=== PATIENT | male | born 1940 | race Caucasian/White ===

== ENCOUNTER 2016-11-08 14:59 | Inpatient (IN) | payer MEDICARE ==
[2016-11-08] MEDS ORDERED: NITROGLYCERIN OINT 1 INCH/GM PACKET TOPICAL STA (15:15)
[2016-11-08] MEDS ORDERED: ASPIRIN 81 MG CHEW PO STA (15:15)
[2016-11-08] MEDS ORDERED: IV VANCOMYCIN PER PHARMACY 1 EACH MISC MISCELLANE PRN (15:16)
[2016-11-08] MEDS ORDERED: FUROSEMIDE 10 MG/ML 4 ML VIAL IV STA (15:16)
--- NOTE | 2016-11-08 15:24 | ED ---
General Adult HPI - General Chief complaint: Extremity Injury, Lower Stated complaint: Cellulitis Time Seen by Provider: 11/08/16 15:04 Source: patient, EMS, RN notes reviewed Mode of arrival: EMS Limitations: no limitations - History of Present Illness Initial comments: 76-year-old male presents to the emergency department with a chief complaint of bilateral leg swelling and redness. Patient has had this the past few days. Patient also felt short of breath. Patient denies any pain at this time. Patient states besides the redness and legs he has no other complaints. Patient states that he is at a rehab for a recent hip fracture.Patient denies any recent fever, chills, shortness of breath, chest pain, back pain, abdominal pain, nausea vomiting, numbness or tingling, dysuria or hematuria, constipation or diarrhea, headaches or visual changes, or any other current symptoms. - Related Data Home Medications Medication Instructions Recorded Confirmed Acetaminophen Tab [Tylenol Tab] 650 mg PO Q4H PRN 11/08/16 11/08/16 Allopurinol [Zyloprim] 100 mg PO BID 11/08/16 11/08/16 Amino Acids/Protein Hydrolys 30 ml PO DAILY 11/08/16 11/08/16 [Pro-Stat Supplement] Atorvastatin [Lipitor] 80 mg PO HS 11/08/16 11/08/16 Bisacodyl 10 mg RECTAL DAILY PRN 11/08/16 11/08/16 Cephalexin [Keflex] 500 mg PO Q12HR 11/08/16 11/08/16 Cetirizine HCl 10 mg PO DAILY 11/08/16 11/08/16 Fluticasone/Vilanterol [Breo 1 puff INHALATION RT-DAILY 11/08/16 11/08/16 Ellipta 100-25 Mcg Inhaler] Ipratropium-Albuterol Nebulize 3 ml INHALATION RT-Q8H PRN 11/08/16 11/08/16 [Duoneb 0.5 mg-3 mg/3 ml Soln] Tim Packet 1 packet PO DAILY 11/08/16 11/08/16 Levothyroxine Sodium [Synthroid] 137 mcg PO HS 11/08/16 11/08/16 Melatonin 5 mg PO HS 11/08/16 11/08/16 Multivitamins, Thera [Multivitamin 1 tab PO DAILY 11/08/16 11/08/16 (formulary)] Omeprazole 20 mg PO HS 11/08/16 11/08/16 Sennosides/Docusate Sodium 1 tab PO BID 11/08/16 11/08/16 [[place]-Colace Tablet] Tamsulosin [Flomax] 0.4 mg PO HS 11/08/16 11/08/16 Tiotropium 18 Mcg/Puff [Spiriva] 1 cap INHALATION RT-DAILY 11/08/16 11/08/16 Vitamin B Complex 1 cap PO DAILY 11/08/16 11/08/16 Warfarin [Coumadin] 2.5 mg PO MOFR 11/08/16 11/08/16 Warfarin [Coumadin] 5 mg PO SUTUWETH 11/08/16 11/08/16 oxyCODONE HCL/ACETAMINOPHEN 1 tab PO Q4H PRN 11/08/16 11/08/16 [Percocet 5-325 mg] oxyCODONE-APAP 5-325MG [Percocet 2 tab PO Q6HR PRN 11/08/16 11/08/16 5-325 mg] Allergies Allergy/AdvReac Type Severity Reaction Status Date / Time No Known Allergies Allergy Verified 11/08/16 16:47 Review of Systems ROS Statement: Those systems with pertinent positive or pertinent negative responses have been documented in the HPI. ROS Other: All systems not noted in ROS Statement are negative. Past Medical History Past Medical History: Atrial Fibrillation, Coronary Artery Disease (CAD), Heart Failure, GERD/Reflux History of Any Multi-Drug Resistant Organisms: None Reported Past Surgical History: Cardiac Valve Replacement, Coronary Bypass/CABG Additional Past Surgical History / Comment(s): tyhyroidectomy Past Psychological History: No Psychological Hx Reported Smoking Status: Former smoker Past Alcohol Use History: Daily Past Drug Use History: None Reported General Exam - General Exam Comments Initial Comments: General: The patient is awake and alert, in no distress, and does not appear acutely ill. Eye: Pupils are equal, round. Ears, nose, mouth and throat: There are moist mucous membranes. Neck: The neck is supple, there is no tenderness. Cardiovascular: There is a regular rate and rhythm. No murmur, rub or gallop is appreciated. Respiratory: Lungs are clear to auscultation, respirations are non-labored, breath sounds are equal. No wheezes, stridor, rales, or rhonchi. Crackles in bilateral lower bases of the lungs. Gastrointestinal: Soft, non-distended, non-tender abdomen without masses or organomegaly noted. There is no rebound or guarding present. No CVA tenderness. Bowel sounds are unremarkable. Back: There is no tenderness to palpation in the midline. There is no obvious deformity. No rashes noted. Musculoskeletal: Normal ROM, no tenderness, There is no pedal edema. Bilateral lower extremity swelling and redness with pitting edema noted. Pulses equal bilaterally 2+. Neurological: CN II-XII intact, There are no obvious motor or sensory deficits. Coordination appears grossly intact. Speech is normal. Skin: Skin is warm and dry and no rashes or lesions are noted. Psychiatric: Cooperative, appropriate mood & affect, normal judgment. Limitations: no limitations Course Vital Signs 11/08/16 11/08/16 11/08/16 15:01 15:12 15:39 Temperature 98.2 F Pulse Rate 70 77 Respiratory 20 Rate Blood Pressure 138/62 O2 Sat by Pulse 98 88 L Oximetry 11/08/16 11/08/16 15:46 16:27 Temperature 99.1 F Pulse Rate 75 78 Respiratory 20 Rate Blood Pressure 133/60 O2 Sat by Pulse 94 L Oximetry - Reevaluation(s) Reevaluation #1: 11/08/16 17:13 The case was discussed with patient's doctor after follow again would like the patient admitted with IV antibiotics for lower extremity cellulitis that has failed outpatient treatment is also concerned about the hip as well as will consult Dr. Pena for that. Also like Dr. Wells consultative for ID. At this time we will admit the patient. We will continue medications as discussed. Patient in agreement with plan. Medical Decision Making - Medical Decision Making 76-year-old male presents to the emergency department with a chief complaint of what appears to be a CHF exacerbation and bilaterally lower extremity cellulitis. At this time we will admit patient for IV antibiotics. Patient has a CHF exacerbation as well. We will continue the patient on Lasix. Case was discussed with Dr. Low - Lab Data Result diagrams: 11/08/16 15:14 11/08/16 15:14 Lab Results 11/08/16 11/08/16 11/08/16 Range/Units 15:14 15:14 15:14 WBC 7.3 (3.8-10.6) k/uL RBC 3.22 L (4.30-5.90) m/uL Hgb 11.1 L (13.0-17.5) gm/dL Hct 34.3 L (39.0-53.0) % MCV 106.5 H (80.0-100.0) fL MCH 34.5 (25.0-35.0) pg MCHC 32.4 (31.0-37.0) g/dL RDW 16.3 H (11.5-15.5) % Plt Count 212 (150-450) k/uL Neutrophils % 76 % Lymphocytes % 11 % Monocytes % 7 % Eosinophils % 4 % Basophils % 0 % Neutrophils # 5.6 (1.3-7.7) k/uL Lymphocytes # 0.8 L (1.0-4.8) k/uL Monocytes # 0.5 (0-1.0) k/uL Eosinophils # 0.3 (0-0.7) k/uL Basophils # 0.0 (0-0.2) k/uL Hypochromasia Moderate Anisocytosis Slight Macrocytosis Marked PT (9.0-12.0) sec INR (<1.1) APTT (22.0-30.0) sec Sodium 136 L (137-145) mmol/L Potassium 4.4 (3.5-5.1) mmol/L Chloride 97 L (98-107) mmol/L Carbon Dioxide 28 (22-30) mmol/L Anion Gap 11 mmol/L BUN 23 H (9-20) mg/dL Creatinine 0.80 (0.66-1.25) mg/dL Est GFR (MDRD) Af Amer >60 (>60 ml/min/1.73 sqM) Est GFR (MDRD) Non-Af >60 (>60 ml/min/1.73 sqM) Glucose 102 H (74-99) mg/dL Plasma Lactic Acid Minh (0.7-2.0) mmol/L Calcium 8.7 (8.4-10.2) mg/dL Magnesium 1.9 (1.6-2.3) mg/dL Total Bilirubin 1.5 H (0.2-1.3) mg/dL AST 35 (17-59) U/L ALT 22 (21-72) U/L Alkaline Phosphatase 221 H (38-126) U/L Total Creatine Kinase 60 (55-170) U/L CK-MB (CK-2) 2.4 (0.0-2.4) ng/mL CK-MB (CK-2) Rel Index 4.0 Troponin I <0.012 (0.000-0.034) ng/mL NT-Pro-B Natriuret Pep pg/mL Total Protein 7.3 (6.3-8.2) g/dL Albumin 3.5 (3.5-5.0) g/dL 11/08/16 11/08/16 11/08/16 Range/Units 15:14 15:14 15:14 WBC (3.8-10.6) k/uL RBC (4.30-5.90) m/uL Hgb (13.0-17.5) gm/dL Hct (39.0-53.0) % MCV (80.0-100.0) fL MCH (25.0-35.0) pg MCHC (31.0-37.0) g/dL RDW (11.5-15.5) % Plt Count (150-450) k/uL Neutrophils % % Lymphocytes % % Monocytes % % Eosinophils % % Basophils % % Neutrophils # (1.3-7.7) k/uL Lymphocytes # (1.0-4.8) k/uL Monocytes # (0-1.0) k/uL Eosinophils # (0-0.7) k/uL Basophils # (0-0.2) k/uL Hypochromasia Anisocytosis Macrocytosis PT 19.5 H (9.0-12.0) sec INR 2.0 (<1.1) APTT 34.0 H (22.0-30.0) sec Sodium (137-145) mmol/L Potassium (3.5-5.1) mmol/L Chloride (98-107) mmol/L Carbon Dioxide (22-30) mmol/L Anion Gap mmol/L BUN (9-20) mg/dL Creatinine (0.66-1.25) mg/dL Est GFR (MDRD) Af Amer (>60 ml/min/1.73 sqM) Est GFR (MDRD) Non-Af (>60 ml/min/1.73 sqM) Glucose (74-99) mg/dL Plasma Lactic Acid Minh 1.9 (0.7-2.0) mmol/L Calcium (8.4-10.2) mg/dL Magnesium (1.6-2.3) mg/dL Total Bilirubin (0.2-1.3) mg/dL AST (17-59) U/L ALT (21-72) U/L Alkaline Phosphatase (38-126) U/L Total Creatine Kinase (55-170) U/L CK-MB (CK-2) (0.0-2.4) ng/mL CK-MB (CK-2) Rel Index Troponin I (0.000-0.034) ng/mL NT-Pro-B Natriuret Pep 2000 pg/mL Total Protein (6.3-8.2) g/dL Albumin (3.5-5.0) g/dL - Radiology Data Radiology results: report reviewed, image reviewed Disposition Clinical Impression: CHF exacerbation, Bilateral lower leg cellulitis, Failure of outpatient treatment Disposition: ADMITTED IP TO THIS [facility] Condition: Stable Time of Disposition: 17:14 Decision Date: 11/08/16 Decision Time: 17:15
[2016-11-08] MEDS ORDERED: VANCOMYCIN 2,000 MG in SODIUM CHLORIDE 0.9% 500 ML IVPB STA (15:25)
[2016-11-08] MEDS ORDERED: IPRATROPIUM-ALBUTEROL 3 ML NEB INHALATION STA (15:33)
[2016-11-08 15:58] LABS: ALT 22 U/L (21-72); AST 35 U/L (17-59); Alkaline Phosphatase 221 U/L (38-126); Anion Gap 11 mmol/L; Blood Urea Nitrogen 23 mg/dL (9-20); Calcium 8.7 mg/dL (8.4-10.2); Carbon Dioxide 28 mmol/L (22-30); Chloride 97 mmol/L (98-107); Glucose 102 mg/dL (74-99); Magnesium 1.9 mg/dL (1.6-2.3); Non-African American GFR(MDRD) >60 (>60 ml/min/1.73 sqM); Potassium 4.4 mmol/L (3.5-5.1); Sodium 136 mmol/L (137-145); Total Bilirubin 1.5 mg/dL (0.2-1.3); Total Protein 7.3 g/dL (6.3-8.2)
[2016-11-08 15:59] LABS: Anisocytosis Slight; Basophils % (A) 0 %; CHCM 31.2; Eosinophils # (A) 0.3 k/uL (0-0.7); Eosinophils % (A) 4 %; HCT 34.3 % (39.0-53.0); HDW 3.38; HGB 11.1 gm/dL (13.0-17.5); Hypochromasia Moderate; Luc # (Auto) 0.21; Luc % (Auto) 3; Lymphocytes # (A) 0.8 k/uL (1.0-4.8); Lymphocytes % (A) 11 %; MCH 34.5 pg (25.0-35.0); MCHC 32.4 g/dL (31.0-37.0); MCV 106.5 fL (80.0-100.0); Macrocytosis Marked; Mean Platelet Volume 7.7; Monocytes # (A) 0.5 k/uL (0-1.0); Monocytes % (A) 7 %; Neutrophils # (A) 5.6 k/uL (1.3-7.7); Neutrophils % (A) 76 %; RBC 3.22 m/uL (4.30-5.90); RDW 16.3 % (11.5-15.5); WBC 7.3 k/uL (3.8-10.6); WBC (Perox) 7.45
[2016-11-08 16:08] LABS: Creatine Kinase 60 U/L (55-170)
[2016-11-08 16:20] LABS: Creatine Kinase MB 2.4 ng/mL (0.0-2.4); Troponin I <0.012 ng/mL (0.000-0.034)
[2016-11-08 16:23] LABS: Prothrombin Time 19.5 sec (9.0-12.0)
--- NOTE | 2016-11-08 16:34 | XR ---
EXAMINATION TYPE: XR chest 2V DATE OF EXAM: 11/08/2016 4:22 PM COMPARISON: NONE INDICATION: Leg redness and swelling, chest pain TECHNIQUE: Single frontal view of the chest is obtained. FINDINGS: The heart size is enlarged. The pulmonary vasculature is prominent. There is diffuse increased lung markings. Small posterior pleural effusions are present. There is fla ttening of the diaphragms compatible COPD. IMPRESSION: 1. Clinical correlation recommended for congestive heart failure. 2. Correlate for COPD
[2016-11-08] MEDS ORDERED: IPRATROPIUM-ALBUTEROL 3 ML NEB INHALATION PRN (17:17)
[2016-11-08] MEDS ORDERED: BISACODYL 10 MG SUPP RECTAL PRN (17:17)
[2016-11-08] MEDS ORDERED: ACETAMINOPHEN TAB 325 MG TAB PO PRN (17:17)
[2016-11-08] MEDS: SYMBICORT 80-4.5 MCG INHALER INHALATION SCH (19:47)
[2016-11-08] MEDS: oxyCODONE-APAP 5-325MG 1 EACH TAB PO PRN (20:13)
[2016-11-08] MEDS: SODIUM CHLORIDE 0.9% 1,000 ML IV SCH (21:32)
[2016-11-08] MEDS: MELATONIN 5 MG TABLET PO SCH (21:36)
[2016-11-08] MEDS: WARFARIN 2.5 MG TAB PO SCH (21:36)
[2016-11-08] MEDS: ATORVASTATIN 80 MG TAB PO SCH (21:36)
[2016-11-08] MEDS: LEVOTHYROXINE 137 MCG TAB PO SCH (21:36)
[2016-11-08] MEDS: PANTOPRAZOLE 40 MG TABLET PO SCH (21:36)
[2016-11-08] MEDS: ALLOPURINOL 100 MG TAB PO SCH (21:36)
[2016-11-08] MEDS: TAMSULOSIN 0.4 MG CAP.ER.24H PO SCH (21:36)
[2016-11-08] MEDS: SENNOSIDES-DOCUSATE SODIUM 1 EACH TAB PO SCH (21:39)
[2016-11-09 00:47] LABS: Creatine Kinase MB 1.7 ng/mL (0.0-2.4); Troponin I <0.012 ng/mL (0.000-0.034)
[2016-11-09 07:39] LABS: Troponin I <0.012 ng/mL (0.000-0.034)
[2016-11-09 07:43] LABS: Creatine Kinase MB 1.7 ng/mL (0.0-2.4)
[2016-11-09] MEDS ORDERED: FUROSEMIDE 10 MG/ML 4 ML VIAL IV SCH (09:00)
[2016-11-09] MEDS ORDERED: NON-FORMULARY DRUG (Amino Acids/Protein Hydrolys [Pro-Stat Supplement] 30 ML) PO SCH (09:00)
[2016-11-09] MEDS ORDERED: JUVEN PO SCH (09:00)
[2016-11-09] MEDS: VANCOMYCIN 1,500 MG in SODIUM CHLORIDE 0.9% 250 ML IVPB SCH ×2 (09:19→20:10)
[2016-11-09] MEDS: B COMPLEX-VIT C-VIT E-ZINC 1 EACH TAB PO SCH (09:20)
[2016-11-09] MEDS: ASPIRIN 325 MG TAB PO SCH (09:20)
[2016-11-09] MEDS: ALLOPURINOL 100 MG TAB PO SCH ×2 (09:20→20:39)
[2016-11-09] MEDS: LORATADINE 10 MG TAB PO SCH (09:21)
[2016-11-09] MEDS: MULTIVITAMINS, THERA 1 EACH TAB PO SCH (09:22)
[2016-11-09] MEDS: SENNOSIDES-DOCUSATE SODIUM 1 EACH TAB PO SCH ×2 (09:28→22:31)
[2016-11-09] MEDS: oxyCODONE-APAP 5-325MG 1 EACH TAB PO PRN ×3 (09:28→20:06)
[2016-11-09] MEDS ORDERED: Magnesium Replacement Protocol 1 EACH MISC MISCELLANE PRN (09:54)
[2016-11-09] MEDS ORDERED: Potassium Replacement Protocol 1 EACH MISC MISCELLANE PRN (09:54)
[2016-11-09] MEDS: TIOTROPIUM 18 MCG/PUFF INHALER INHALATION SCH ×2 (09:55→11:10)
[2016-11-09] MEDS: SYMBICORT 80-4.5 MCG INHALER INHALATION SCH ×2 (09:55→20:05)
[2016-11-09] MEDS: SODIUM CHLORIDE 0.9% 1,000 ML IV SCH (11:09)
--- NOTE | 2016-11-09 11:46 | P.HPIM ---
History of Present Illness H&P Date: 11/09/16 Chief Complaint: Right hip swelling and redness This is a 76-year-old gentleman with a very complex past medical history noted below who gets most of his care at the [facility] in [place] that was brought to the emergency room from [facility] here in [place] where he resides for physical therapy. Approximately a month ago, patient was on a cruise trip and sustained a fall and ended up admitted to the hospital in [place] with a right hip fracture. Patient underwent total right hip arthroplasty and was eventually discharged and transferred to [place] to [facility] for physical therapy. For the past week, patient was noted to have worsening swelling and redness involving the right hip. He was started on oral Keflex with no significant improvement. With nursing staff concerns at the [facility] patient was sent to the hospital for further evaluation. Patient is known to have multiple chronic medical problems noted below significant for chronic and severe venous insufficiency with chronic bilateral lower extremity edema that was getting worse for the past few days. He was also noted to have worsening redness bilaterally from the ankle up to the knee. Patient himself denies any shortness of breath or chest pain. He wears 2 L of oxygen usually since his discharge from the hospital approximately a month ago. He denies any significant pain in the hip area. Review of Systems Review of system: 14 points review of systems were obtained and were negative except to what were mentioned in the HPI. Past Medical History Past Medical History: Atrial Fibrillation, Coronary Artery Disease (CAD), Heart Failure, GERD/Reflux History of Any Multi-Drug Resistant Organisms: None Reported Past Surgical History: Cardiac Valve Replacement, Coronary Bypass/CABG Additional Past Surgical History / Comment(s): tyhyroidectomy, pig valve replacement, bilateral knee replacement, rt femur surgery. Past Anesthesia/Blood Transfusion Reactions: No Reported Reaction Past Psychological History: No Psychological Hx Reported Smoking Status: Former smoker Past Alcohol Use History: Daily Past Drug Use History: None Reported - Past Family History Mother Family Medical History: Cancer Medications and Allergies Home Medications Medication Instructions Recorded Confirmed Type Acetaminophen Tab [Tylenol Tab] 650 mg PO Q4H PRN 11/08/16 11/08/16 History Allopurinol [Zyloprim] 100 mg PO BID 11/08/16 11/08/16 History Amino Acids/Protein Hydrolys 30 ml PO DAILY 11/08/16 11/08/16 History [Pro-Stat Supplement] Atorvastatin [Lipitor] 80 mg PO HS 11/08/16 11/08/16 History Bisacodyl 10 mg RECTAL DAILY PRN 11/08/16 11/08/16 History Cephalexin [Keflex] 500 mg PO Q12HR 11/08/16 11/08/16 History Cetirizine HCl 10 mg PO DAILY 11/08/16 11/08/16 History Fluticasone/Vilanterol [Breo 1 puff INHALATION RT-DAILY 11/08/16 11/08/16 History Ellipta 100-25 Mcg Inhaler] Ipratropium-Albuterol Nebulize 3 ml INHALATION RT-Q8H PRN 11/08/16 11/08/16 History [Duoneb 0.5 mg-3 mg/3 ml Soln] Tim Packet 1 packet PO DAILY 11/08/16 11/08/16 History Levothyroxine Sodium [Synthroid] 137 mcg PO HS 11/08/16 11/08/16 History Melatonin 5 mg PO HS 11/08/16 11/08/16 History Multivitamins, Thera [Multivitamin 1 tab PO DAILY 11/08/16 11/08/16 History (formulary)] Omeprazole 20 mg PO HS 11/08/16 11/08/16 History Sennosides/Docusate Sodium 1 tab PO BID 11/08/16 11/08/16 History [[place]-Colace Tablet] Tamsulosin [Flomax] 0.4 mg PO HS 11/08/16 11/08/16 History Tiotropium 18 Mcg/Puff [Spiriva] 1 cap INHALATION RT-DAILY 11/08/16 11/08/16 History Vitamin B Complex 1 cap PO DAILY 11/08/16 11/08/16 History Warfarin [Coumadin] 2.5 mg PO MOFR 11/08/16 11/08/16 History Warfarin [Coumadin] 5 mg PO SUTUWETH 11/08/16 11/08/16 History oxyCODONE HCL/ACETAMINOPHEN 1 tab PO Q4H PRN 11/08/16 11/08/16 History [Percocet 5-325 mg] oxyCODONE-APAP 5-325MG [Percocet 2 tab PO Q6HR PRN 11/08/16 11/08/16 History 5-325 mg] Allergies Allergy/AdvReac Type Severity Reaction Status Date / Time No Known Allergies Allergy Verified 11/08/16 16:47 Physical Exam Vitals: Vital Signs Temp Pulse Pulse Resp BP BP Pulse Ox 11/09/16 08:00 96.5 F L 65 20 131/57 97 11/09/16 04:00 97.4 F L 74 18 105/55 93 L 11/09/16 00:00 97 F L 64 18 113/58 94 L 11/08/16 20:00 63 18 11/08/16 19:15 97.1 F L 63 18 114/59 95 11/08/16 19:11 98.9 F 70 18 127/62 98 11/08/16 17:43 98.6 F 75 20 122/58 96 Intake and Output 11/08/16 11/09/16 11/09/16 22:59 06:59 14:59 Intake Total 200 416 Output Total 950 400 Balance -950 -200 416 Intake: Oral 200 416 Output: Urine 950 400 Other: Voiding Method Indwelling Catheter Indwelling Catheter Indwelling Catheter Weight 116 kg 116 kg General: The patient is awake and alert, in no distress, and does not appear acutely ill. Eye: extra-ocular movements are intact; there is normal conjunctiva bilaterally. . Neck: The neck is supple, there is no tenderness or JVD. Cardiovascular: Normal S1-S2, no S3-S4, no murmurs. Respiratory: Lungs with bibasilar crackles Gastrointestinal: Abdomen is soft, nontender, nondistended Musculoskeletal: there is evidence of anasarca all the way up to the hip bilaterally. Neurological: There are no obvious motor or sensory deficits. Speech is normal. Skin: Skin is warm and dry. There is significant redness involving both lower extremities from the ankles up to the knees that appeared warm to touch Results CBC & Chem 7: 11/08/16 15:14 11/08/16 15:14 Assessment and Plan Plan: 1. Acute heart failure exacerbation: Mostly systolic. With anasarca up to the hip bilaterally. I would obtain echocardiogram for further evaluation. Continue Lasix drip at 5 mg per hour. Monitor kidney function and electrolytes closely. 2. Bilateral lower extremity cellulitis: Currently on IV vancomycin. I would consult infectious disease for further recommendations. 3. Status post total right hip arthroplasty approximately a month ago with evidence of swelling and redness in the hip area: May represent mild cellulitis. I would obtain an x-ray of the right hip and consult orthopedic for further evaluation 4. Paroxysmal atrial fibrillation on anticoagulation with Coumadin 5. Underlying COPD with no evidence of exacerbation 6. Chronic hypoxic respiratory failure on home O2 2 L via nasal cannula 7. Chronic obstructive uropathy: Patient had indwelling Nguyen catheter since his discharge from the hospital approximately a month ago. He is maintained on Flomax 0.4 mg daily. He had a voiding trial last week at the retirement which he failed and Nguyen was reinserted. His is very concerned and would like to get an opinion from urology. 8. GI and DVT prophylaxis Today, I reviewed his medication list and lab work results. Continue current regimen. Appreciate staff consultant's recommendations. Repeat lab work in the morning. Monitor I's and O's closely. Patient and his updated about his current condition. All their questions answered to their satisfaction.
--- NOTE | 2016-11-09 12:54 | XR ---
EXAMINATION TYPE: XR Hip Complete RT DATE OF EXAM: 11/09/2016 12:31 PM CLINICAL HISTORY: Swelling and redness right leg with surgery 3 weeks ago. TECHNIQUE: AP and frogleg views of the right hip are obtained. COMPARISON: None. FINDINGS: There is long intramedullary jovita with proximal femoral necks fixating screw and distal tra nsverse fixating screw through comminuted displaced intertrochanteric fracture right proximal femur. 2 surgical clips near right hip joint are noted. There is additional metallic hardware from right kne e arthroplasty present. Broad-based bony projection from distal medial femoral condyle could reflect osteochondroma. Vascular calcification in the soft tissue is present. There is mild to moderate diffu se subcutaneous edema seen throughout the visualized portion of the right lower extremity. IMPRESSION: There is mild to moderate diffuse subcutaneous edema with fixation hardware through comm inuted intertrochanteric displaced fracture right proximal femur. Correlation with old outside postop erative x-rays would be beneficial to ensure stable positioning since surgery.
[2016-11-09] MEDS: FUROSEMIDE 250 MG in SODIUM CHLORIDE 0.9% 225 ML IVP SCH (13:48)
[2016-11-09] MEDS: WARFARIN 5 MG TAB PO SCH (17:38)
[2016-11-09] MEDS: PANTOPRAZOLE 40 MG TABLET PO SCH (20:07)
[2016-11-09] MEDS: LEVOTHYROXINE 137 MCG TAB PO SCH (20:07)
[2016-11-09] MEDS: ATORVASTATIN 80 MG TAB PO SCH (20:07)
[2016-11-09] MEDS: MELATONIN 5 MG TABLET PO SCH (20:07)
[2016-11-09] MEDS: TAMSULOSIN 0.4 MG CAP.ER.24H PO SCH (20:07)
[2016-11-10 06:43] LABS: Anisocytosis Slight; Basophils % (A) 1 %; CH 33.3; CHCM 31.5; Eosinophils # (A) 0.3 k/uL (0-0.7); Eosinophils % (A) 6 %; HCT 30.4 % (39.0-53.0); HDW 3.27; HGB 9.7 gm/dL (13.0-17.5); Hypochromasia Moderate; Luc # (Auto) 0.13; Luc % (Auto) 2; Lymphocytes # (A) 0.7 k/uL (1.0-4.8); Lymphocytes % (A) 13 %; MCV 106.4 fL (80.0-100.0); Macrocytosis Marked; Mean Platelet Volume 8.4; Monocytes # (A) 0.4 k/uL (0-1.0); Monocytes % (A) 7 %; Neutrophils # (A) 3.9 k/uL (1.3-7.7); Neutrophils % (A) 71 %; RBC 2.86 m/uL (4.30-5.90); RDW 16.4 % (11.5-15.5); WBC 5.5 k/uL (3.8-10.6); WBC (Perox) 5.81
[2016-11-10] MEDS: oxyCODONE-APAP 5-325MG 1 EACH TAB PO PRN ×4 (06:51→23:35)
[2016-11-10] MEDS: SODIUM CHLORIDE 0.9% 1,000 ML IV SCH (06:54)
[2016-11-10] MEDS ORDERED: VANCOMYCIN TROUGH DUE 1 EACH MISC MISCELLANE ONE (07:00)
[2016-11-10 07:03] LABS: Anion Gap 8 mmol/L; Blood Urea Nitrogen 19 mg/dL (9-20); Calcium 7.9 mg/dL (8.4-10.2); Carbon Dioxide 32 mmol/L (22-30); Chloride 98 mmol/L (98-107); Glucose 87 mg/dL (74-99); Magnesium 1.7 mg/dL (1.6-2.3); Non-African American GFR(MDRD) >60 (>60 ml/min/1.73 sqM); Potassium 3.7 mmol/L (3.5-5.1); Sodium 138 mmol/L (137-145)
[2016-11-10] MEDS: TIOTROPIUM 18 MCG/PUFF INHALER INHALATION SCH (09:14)
[2016-11-10] MEDS: SYMBICORT 80-4.5 MCG INHALER INHALATION SCH ×2 (09:14→20:38)
[2016-11-10] MEDS: ALLOPURINOL 100 MG TAB PO SCH ×2 (09:54→20:09)
[2016-11-10] MEDS: LORATADINE 10 MG TAB PO SCH (09:55)
[2016-11-10] MEDS: B COMPLEX-VIT C-VIT E-ZINC 1 EACH TAB PO SCH (09:55)
[2016-11-10] MEDS: ASPIRIN 325 MG TAB PO SCH (09:56)
--- NOTE | 2016-11-10 10:21 | CONS ---
DATE OF CONSULTATION: DATE OF SERVICE: 11/09/2016 REASON FOR CONSULTATION: Bilateral lower extremity cellulitis. HISTORY OF PRESENT ILLNESS: The patient is a 76-year-old male who has been brought into the [facility] here with chief complaints of worsening swelling and redness involving his right bilateral lower extremity. Apparently, the patient recently had a fall while on a cruise ship and sustained fracture to the right hip area and is status post right hip arthroplasty in a [facility]. Subsequently, the patient was discharged and transferred to the extended-care facility in the [place] area. Over the last few days, the patient was noticed to have increase in swelling and redness of the leg for which he was started on Keflex without any significant improvement, subsequently admitted into the hospital for further workup for the same. The patient has been started on vancomycin. I was asked to see the patient for further recommendation. Patient with more swelling in the legs as well as redness and some dull pain 1 to 2 out of 10 and no radiation. There is no skin breakdown or any drainage. Did have some chills, but denies any high-grade fever. REVIEW OF SYSTEMS: CONSTITUTIONAL: Positive for weakness. No high-grade fever. EYES: No complaint. ENT: No complaint. RESPIRATORY; Some shortness of breath. CARDIOVASCULAR: As per HPI. GENITOURINARY: No complaint. GASTROINTESTINAL: No complaint. MUSCULOSKELETAL: No complaint. INTEGUMENTARY: As per HPI. PSYCHOLOGICAL: No complaint. ENDOCRINE: No complaint. NEUROLOGIC: No complaint. PAST MEDICAL HISTORY: Coronary artery disease, congestive heart failure, gastroesophageal reflux disease, atrial fibrillation, recent right hip fracture. PAST SURGICAL HISTORY: Heart valve replacement, coronary artery bypass grafting, bilateral knee replacement, and right hip fracture repair. SOCIAL HISTORY: Remote history of smoking. No drinking or drug use. FAMILY HISTORY: Mother had history of cancer. ALLERGIES: No known drug allergies. Medications currently include patient is on Tylenol, DuoNeb, Zyloprim, aspirin, Lipitor, Dulcolax, Symbicort, Lasix Synthroid, Claritin, melatonin, vancomycin, Theragran, Percocet, Protonix, Senokot, Flomax, Coumadin. On examination, blood pressure is 124/60 with a pulse of 69, temperature 97.7. He is 92% on 2 L nasal cannula. General description is an elderly male lying in bed in no distress. No tachypnea or accessory muscle of respiration use. HEENT examination shows pallor. No scleral icterus. Oral mucous membranes dry. NECK: Trachea central. There is no thyromegaly. LUNGS: Unlabored breathing. Clear to auscultation anteriorly. HEART: S1, S2. Regular rate and rhythm. ABDOMEN: Soft, no tenderness. EXTREMITIES: 2+ edema of feet bilaterally. He did have some swelling and redness. No significant warmth to it though. No evidence of any Athlete foot. No skin breakdown. NEUROLOGICAL: The patient is awake, alert, oriented x3. Mood and affect normal. LABS: Hemoglobin is 11.1, white count 7.3. INR is 2 with a BUN of 23, creatinine 0.80. DIAGNOSTIC IMPRESSION: Patient with diffuse swelling and redness of bilateral lower extremities in a patient who did have underlying congestive heart failure with fluid overload with diffuse swelling less likely indicative of a possible streptococcal disease , no improvement on the Keflex. PLAN: 1. Would recommend [place] wrap from just above toes to below knee to keep some of the swelling down. 2. Juan area of the redness. 3. Continue the patient on vancomycin, pharmacy to dose, trough 15. 4. Will follow up on the clinical condition and cultures to further adjust the medication if needed. Thank you for this consultation. Will follow this patient along with you. JUNE
[2016-11-10] MEDS: VANCOMYCIN 1,500 MG in SODIUM CHLORIDE 0.9% 250 ML IVPB SCH (11:11)
[2016-11-10 11:28] VITALS: BMI 35.4
[2016-11-10] MEDS ORDERED: VANCOMYCIN 1,500 MG in SODIUM CHLORIDE 0.9% 250 ML IVPB SCH (12:00)
[2016-11-10] MEDS: SENNOSIDES-DOCUSATE SODIUM 1 EACH TAB PO SCH ×2 (12:21→23:34)
[2016-11-10] MEDS: MULTIVITAMINS, THERA 1 EACH TAB PO SCH (12:22)
--- NOTE | 2016-11-10 12:30 | P.CNOR ---
History of Present Illness - HPI History of present illness: This is a pleasant 76-year-old gentleman who is admitted with swelling and redness over his right lower extremity. The patient was seen and evaluated at bedside with Dr. Sylvain Cota. The patient apparently had a fall while on a cruise a few weeks ago. He sustained a fracture to his right hip and underwent surgical intervention in [place] with intramedullary nailing and hip screw. The patient has been in rehab since his return to [place]. He apparently had some increased swelling and redness over the area his incisions and lower extremity. Subsequently we are consulted. Patient currently denies fevers. He states that he had been weightbearing with 25%. He has had some shortness of breath. He otherwise denies nausea, vomiting, abdominal pain. Review of Systems See HPI Past Medical History Past Medical History: Atrial Fibrillation, Coronary Artery Disease (CAD), Heart Failure, GERD/Reflux History of Any Multi-Drug Resistant Organisms: None Reported Past Surgical History: Cardiac Valve Replacement, Coronary Bypass/CABG Additional Past Surgical History / Comment(s): tyhyroidectomy, pig valve replacement, bilateral knee replacement, rt femur surgery. Past Anesthesia/Blood Transfusion Reactions: No Reported Reaction Past Psychological History: No Psychological Hx Reported Smoking Status: Former smoker Past Alcohol Use History: Daily Past Drug Use History: None Reported - Past Family History Mother Family Medical History: Cancer Medications and Allergies Home Medications Medication Instructions Recorded Confirmed Type Acetaminophen Tab [Tylenol Tab] 650 mg PO Q4H PRN 11/08/16 11/08/16 History Allopurinol [Zyloprim] 100 mg PO BID 11/08/16 11/08/16 History Amino Acids/Protein Hydrolys 30 ml PO DAILY 11/08/16 11/08/16 History [Pro-Stat Supplement] Atorvastatin [Lipitor] 80 mg PO HS 11/08/16 11/08/16 History Bisacodyl 10 mg RECTAL DAILY PRN 11/08/16 11/08/16 History Cephalexin [Keflex] 500 mg PO Q12HR 11/08/16 11/08/16 History Cetirizine HCl 10 mg PO DAILY 11/08/16 11/08/16 History Fluticasone/Vilanterol [Breo 1 puff INHALATION RT-DAILY 11/08/16 11/08/16 History Ellipta 100-25 Mcg Inhaler] Ipratropium-Albuterol Nebulize 3 ml INHALATION RT-Q8H PRN 11/08/16 11/08/16 History [Duoneb 0.5 mg-3 mg/3 ml Soln] Tim Packet 1 packet PO DAILY 11/08/16 11/08/16 History Levothyroxine Sodium [Synthroid] 137 mcg PO HS 11/08/16 11/08/16 History Melatonin 5 mg PO HS 11/08/16 11/08/16 History Multivitamins, Thera [Multivitamin 1 tab PO DAILY 11/08/16 11/08/16 History (formulary)] Omeprazole 20 mg PO HS 11/08/16 11/08/16 History Sennosides/Docusate Sodium 1 tab PO BID 11/08/16 11/08/16 History [[place]-Colace Tablet] Tamsulosin [Flomax] 0.4 mg PO HS 11/08/16 11/08/16 History Tiotropium 18 Mcg/Puff [Spiriva] 1 cap INHALATION RT-DAILY 11/08/16 11/08/16 History Vitamin B Complex 1 cap PO DAILY 11/08/16 11/08/16 History Warfarin [Coumadin] 2.5 mg PO MOFR 11/08/16 11/08/16 History Warfarin [Coumadin] 5 mg PO SUTUWETH 11/08/16 11/08/16 History oxyCODONE HCL/ACETAMINOPHEN 1 tab PO Q4H PRN 11/08/16 11/08/16 History [Percocet 5-325 mg] oxyCODONE-APAP 5-325MG [Percocet 2 tab PO Q6HR PRN 11/08/16 11/08/16 History 5-325 mg] Allergies Allergy/AdvReac Type Severity Reaction Status Date / Time No Known Allergies Allergy Verified 11/08/16 16:47 Physical Examination Examination the patient does not appear to be in acute distress. He is pleasant and answers questions appropriately. Breathing appears nonlabored. Abdomen is soft and nontender. Upon examination of his lower extremities he does have [place] bandage is intact to his lower legs bilaterally involving the feet as well. There is some swelling and mild erythema about the right hip. Minimal warmth to touch. There is no drainage from the incision sites. Mild tenderness about the hip. Sensation and circulatory status is intact. Results X-rays of the patient's right hip are reviewed. There is long intramedullary jovita intact. There is comminuted intertrochanteric displaced fracture at the right proximal femur. There is no outside postoperative x-rays for comparison. - Labs Labs: Abnormal Lab Results - Last 24 Hours (Table) 11/10/16 11/10/16 11/10/16 Range/Units 06:23 06:23 06:23 RBC 2.86 L (4.30-5.90) m/uL Hgb 9.7 L (13.0-17.5) gm/dL Hct 30.4 L (39.0-53.0) % MCV 106.4 H (80.0-100.0) fL RDW 16.4 H (11.5-15.5) % Lymphocytes # 0.7 L (1.0-4.8) k/uL PT 19.0 H (9.0-12.0) sec Carbon Dioxide 32 H (22-30) mmol/L Calcium 7.9 L (8.4-10.2) mg/dL H & H 11/10/16 Range/Units 06:23 Hgb 9.7 L (13.0-17.5) gm/dL Hct 30.4 L (39.0-53.0) % Coagulation 11/10/16 Range/Units 06:23 INR 2.0 (<1.1) Result Diagrams: 11/10/16 06:23 11/10/16 06:23 Assessment and Plan (1) Swelling of right lower extremity Status: Acute Plan: Clinical and x-ray findings were discussed with the patient at bedside with Dr. Cota. Patient is status post intramedullary hip screw fixation. The patient had his procedure performed at an outside facility in [place]. Recommend conservative treatment with IV antibiotics as directed by infectious disease. No surgical intervention is planned at this time. We will follow patient closely along with you. Thank you very much for this consult.
--- NOTE | 2016-11-10 12:46 | P.PN ---
Subjective patient is doing well today. He is diuresing well on the Lasix drip. He has a negative fluid balance over the past 48 hours. Peripheral edema is improving significantly. Objective - Vital Signs Vital signs: Vital Signs Temp 97.4 F L 11/10/16 11:59 Pulse 60 11/10/16 08:00 Resp 13 11/10/16 11:59 BP 139/62 11/10/16 11:59 Pulse Ox 90 L 11/10/16 11:59 Intake & Output 11/09/16 11/10/16 11/10/16 18:59 06:59 18:59 Intake Total 506 50 240 Output Total 1200 6400 2600 Balance -480 -6054 -8675 Weight 112 kg 112 kg Intake: IV 50 Furosemide 250 mg In 50 Sodium Chloride 0.9% 225 ml @ 5 MG/HR 5 mls/hr IVP .Q24H [facility] Rx#:[id number] Oral 506 240 Output: Urine 1200 6400 2600 Other: Voiding Method Indwelling Catheter Indwelling Catheter Indwelling Catheter # Bowel Movements 0 - Exam General: The patient is awake and alert, in no distress Eye: there is normal conjunctiva bilaterally. Neck: The neck is supple, there is no JVD. Cardiovascular: Normal S1-S2, no S3-S4, no murmurs. Respiratory: Lungs clear to auscultation bilaterally Gastrointestinal: Abdomen is soft, nontender Musculoskeletal: evidence of anasarca up to the hip bilaterallyimproving compared to yesterday Neurological:. Speech is normal. Skin: Skin is warm and dry. Both legs are wrapped withAce wrap up to the knee. - Labs CBC & Chem 7: 11/10/16 06:23 11/10/16 06:23 Labs: Abnormal Lab Results - Last 24 Hours (Table) 11/10/16 11/10/16 11/10/16 Range/Units 06:23 06:23 06:23 RBC 2.86 L (4.30-5.90) m/uL Hgb 9.7 L (13.0-17.5) gm/dL Hct 30.4 L (39.0-53.0) % MCV 106.4 H (80.0-100.0) fL RDW 16.4 H (11.5-15.5) % Lymphocytes # 0.7 L (1.0-4.8) k/uL PT 19.0 H (9.0-12.0) sec Carbon Dioxide 32 H (22-30) mmol/L Calcium 7.9 L (8.4-10.2) mg/dL Assessment and Plan Plan: 1. Acute heart failure exacerbation: Mostly systolic. With anasarca up to the hip bilaterally. awaiting echocardiogram report. Continue Lasix drip at 5 mg per hour. Monitor kidney function and electrolytes closely. monitor I's and O' s closely 2. Bilateral lower extremity cellulitis: Currently on IV vancomycin. infectious disease following. 3. Status post intramedullary hip screw fixation to the right hip approximately a month ago in [place]. Seen and evaluated by orthopedic. Continue IV antibiotic no surgical intervention recommended. X-ray reviewed. 4. Paroxysmal atrial fibrillation on anticoagulation with Coumadin. I would monitor INR daily 5. Underlying COPD with no evidence of exacerbation 6. Chronic hypoxic respiratory failure on home O2 2 L via nasal cannula 7. Chronic obstructive uropathy: Patient had indwelling Nguyen catheter since his discharge from the hospital approximately a month ago. He is maintained on Flomax 0.4 mg daily. [facility] which [facility] failed and Nguyen was reinserted. His is very concerned and would like to get an opinion from urology. 8. GI and DVT prophylaxis Today, I reviewed his medication list and lab work results. Continue current regimen. Appreciate child development consultant's recommendations. Repeat lab work in the morning. Monitor I's and O's closely. Patient and his updated about his current condition. All their questions answered to their satisfaction.
[2016-11-10] MEDS: WARFARIN 5 MG TAB PO SCH (17:29)
[2016-11-10] MEDS: FUROSEMIDE 250 MG in SODIUM CHLORIDE 0.9% 225 ML IVP SCH (17:30)
--- NOTE | 2016-11-10 19:48 | PN ---
DATE OF SERVICE: 11/10/2016 REASON FOR FOLLOWUP: Bilateral lower extremity cellulitis. INTERVAL HISTORY: The patient was seen on rounds this morning. The patient has been afebrile, has been breathing comfortably. Denies significant chest pain or cough. Lower extremity swelling and redness have improved. The wound on his right hip remains closed, with some swelling, but there is no redness or drainage. On examination, blood pressure is 117/55 with a pulse of 67, temperature 97.4. He is 95% on 2 L nasal cannula. General description is an elderly male lying in bed in no distress. RESPIRATORY SYSTEM: Unlabored breathing. Clear to auscultation anteriorly. HEART: S1, S2. Regular rate and rhythm. ABDOMEN: Soft. No tenderness. RIGHT HIP: Some swelling, minimal erythema. No fluctuation or drainage. The leg swelling and redness have improved. LABS: Hemoglobin is 9.7, white count 5.5. BUN of 19, creatinine 0.85. Blood cultures have been negative. DIAGNOSTIC IMPRESSION AND PLAN: Patient with bilateral lower extremity cellulitis with diffuse swelling and redness, likely streptococcal disease. Patient's antibiotic will be adjusted to cefazolin, as clinically doubt MRSA, along with [place] wrap to keep the swelling down. His was present at the bedside. Questions and concerns were answered.
[2016-11-10] MEDS: ATORVASTATIN 80 MG TAB PO SCH (20:09)
[2016-11-10] MEDS: PANTOPRAZOLE 40 MG TABLET PO SCH (20:09)
[2016-11-10] MEDS: MELATONIN 5 MG TABLET PO SCH (20:09)
[2016-11-10] MEDS: TAMSULOSIN 0.4 MG CAP.ER.24H PO SCH (20:09)
[2016-11-10] MEDS: LEVOTHYROXINE 137 MCG TAB PO SCH (20:09)
[2016-11-10] MEDS: ceFAZolin 2 GM in SODIUM CHLORIDE 0.9% 100 ML IVPB SCH (23:34)
[2016-11-11] MEDS: SODIUM CHLORIDE 0.9% 1,000 ML IV SCH ×2 (02:40→12:32)
[2016-11-11 06:49] LABS: Anisocytosis Slight; Basophils % (A) 1 %; CH 33.9; CHCM 31.3; Eosinophils # (A) 0.3 k/uL (0-0.7); Eosinophils % (A) 6 %; HCT 32.4 % (39.0-53.0); HDW 3.18; HGB 9.9 gm/dL (13.0-17.5); Hypochromasia Moderate; Luc # (Auto) 0.16; Luc % (Auto) 3; Lymphocytes # (A) 0.8 k/uL (1.0-4.8); Lymphocytes % (A) 14 %; MCH 33.4 pg (25.0-35.0); MCHC 30.6 g/dL (31.0-37.0); MCV 108.9 fL (80.0-100.0); Macrocytosis Marked; Monocytes # (A) 0.4 k/uL (0-1.0); Monocytes % (A) 7 %; Neutrophils # (A) 3.8 k/uL (1.3-7.7); Neutrophils % (A) 70 %; RBC 2.97 m/uL (4.30-5.90); RDW 16.6 % (11.5-15.5); WBC 5.4 k/uL (3.8-10.6); WBC (Perox) 5.39
[2016-11-11 07:07] LABS: Prothrombin Time 19.5 sec (9.0-12.0)
[2016-11-11 07:19] LABS: Anion Gap 6 mmol/L; Blood Urea Nitrogen 16 mg/dL (9-20); Calcium 7.8 mg/dL (8.4-10.2); Carbon Dioxide 36 mmol/L (22-30); Chloride 97 mmol/L (98-107); Cholesterol 91 mg/dL (<200); Glucose 91 mg/dL (74-99); HDL Cholesterol 39 mg/dL (40-60); Magnesium 1.6 mg/dL (1.6-2.3); Non-African American GFR(MDRD) >60 (>60 ml/min/1.73 sqM); Potassium 3.4 mmol/L (3.5-5.1); Sodium 139 mmol/L (137-145); Triglycerides 62 mg/dL (<150)
--- NOTE | 2016-11-11 08:54 | P.PN ---
Subjective Principal diagnosis: Bilateral lower leg cellulitis The patient is a pleasant 76-year-old male who was admitted with swelling and redness over his right lower extremity. The patient was seen and evaluated by Dr. Sylvain Cota yesterday. Patient is status post intramedullary nailing and hip screw in [place]. The patient returned to the [facility] for rehab. The patient states that since admission the hip has improved and his bilateral lower extremities has improved. Today, the patient denies here, chills, rigors, shortness breath, chest pain, nausea, vomiting, and abdominal pain. He has no new complaints this morning. Objective - Vital Signs Vital signs: Vital Signs Temp 97.8 F 11/11/16 04:00 Pulse 63 11/11/16 04:00 Resp 18 11/11/16 04:00 BP 115/55 11/11/16 04:00 Pulse Ox 93 L 11/11/16 04:00 Intake & Output 11/10/16 11/11/16 11/11/16 18:59 06:59 18:59 Intake Total 835 155 Output Total 3825 3250 Balance -2990 -3095 Weight 112 kg 110.5 kg Intake: IV 55 Furosemide 250 mg In 55 Sodium Chloride 0.9% 225 ml @ 5 MG/HR 5 mls/hr IVP .Q24H [facility] Rx#:[id number] Intake, IV Titration 100 Amount ceFAZolin 2 gm In Sodium 100 Chloride 0.9% 100 ml @ 100 mls/hr IVPB Q8HR [facility] Rx#:[id number] Oral 835 Output: Urine 3825 3250 Uretheral (Nguyen) 1400 Other: Voiding Method Indwelling Catheter Indwelling Catheter # Bowel Movements 0 - Exam The patient does not appear in acute distress. Alert and orientated x3. Hip incisions are well-healed and appear fine with mild erythema and warmth on the entire hip area. No active drainage. [place] wraps are present to the bilateral lower extremities. There is a wound to the dorsal aspect of the right foot. Good foot and ankle motion without difficulty. Sensation and circulatory status is intact. - Labs CBC & Chem 7: 11/11/16 06:36 11/11/16 06:36 Labs: Abnormal Lab Results - Last 24 Hours (Table) 11/11/16 11/11/16 11/11/16 Range/Units 06:36 06:36 06:36 RBC 2.97 L (4.30-5.90) m/uL Hgb 9.9 L (13.0-17.5) gm/dL Hct 32.4 L (39.0-53.0) % MCV 108.9 H (80.0-100.0) fL MCHC 30.6 L (31.0-37.0) g/dL RDW 16.6 H (11.5-15.5) % Lymphocytes # 0.8 L (1.0-4.8) k/uL PT 19.5 H (9.0-12.0) sec Potassium 3.4 L (3.5-5.1) mmol/L Chloride 97 L (98-107) mmol/L Carbon Dioxide 36 H (22-30) mmol/L Calcium 7.8 L (8.4-10.2) mg/dL HDL Cholesterol 39 L (40-60) mg/dL Assessment and Plan (1) Bilateral lower leg cellulitis Status: Acute Plan: The clinical findings were discussed with the patient. No surgical intervention is planned at this time. The patient appears to be improving on IV antibiotics and diuresis. Continue antibiotic therapy per infectious disease. Continue pain control. The patient is orthopedically stable for discharge back to rehab when medically cleared. We will continue to follow patient closely.
[2016-11-11] MEDS: ceFAZolin 2 GM in SODIUM CHLORIDE 0.9% 100 ML IVPB SCH ×2 (09:04→15:48)
[2016-11-11] MEDS: B COMPLEX-VIT C-VIT E-ZINC 1 EACH TAB PO SCH (09:04)
[2016-11-11] MEDS: ASPIRIN 325 MG TAB PO SCH (09:04)
[2016-11-11] MEDS: SENNOSIDES-DOCUSATE SODIUM 1 EACH TAB PO SCH ×2 (09:04→21:02)
[2016-11-11] MEDS: ALLOPURINOL 100 MG TAB PO SCH ×2 (09:04→21:02)
[2016-11-11] MEDS: LORATADINE 10 MG TAB PO SCH (09:05)
[2016-11-11] MEDS ORDERED: Potassium Replacement Protocol 1 EACH MISC MISCELLANE PRN (09:20)
[2016-11-11] MEDS: TIOTROPIUM 18 MCG/PUFF INHALER INHALATION SCH (09:48)
[2016-11-11] MEDS: SYMBICORT 80-4.5 MCG INHALER INHALATION SCH ×2 (09:48→20:04)
--- NOTE | 2016-11-11 10:38 | ECHOF ---
Referral Reason:CHF? MEASUREMENTS -------- HEIGHT: 177.8 cm WEIGHT: 115.7 kg BP: 131/57 RVIDd: 4.2 cm (< 3.3) IVSd: 1.3 cm (0.6 - 1.1) LVIDd: 5.7 cm (3.9 - 5.3) LVPWd: 1.3 cm (0.6 - 1.1) IVSs: 1.9 cm LVIDs: 4.4 cm LVPWs: 1.5 cm LA Diam: 6.1 cm (2.7 - 3.8) LAESV Index (A-L): 41.49 ml/m Ao Diam: 3.1 cm (2.0 - 3.7) AV Cusp: 1.5 cm (1.5 - 2.6) LA Diam: 4.4 cm (2.7 - 3.8) MV EXCURSION: 12.495 mm (> 18.000) MV EF SLOPE: 31 mm/s (70 - 150) EPSS: 2.2 cm RAP: 15.00 mmHg RVSP: 84.56 mmHg FINDINGS -------- Atrial fibrillation. This was a technically adequate study. There is mild concentric left ventricular hypertrophy. Overall left ventricular systolic function is mildly impaired with, an EF between 45 - 50 %. The right ventricle is severely enlarged. The right ventricular septal wall is flattened in diastole and systole which is consistent with right ventricular volume and pressure overload. LA is severely dilated >40 ml/m2 The right atrial size is normal. 1.5mg of Definity was utilized for enhancement of images Normal porcine bioprosthetic aortic valve. Mild mitral regurgitation is present. MV Repair. Moderate tricuspid regurgitation present. There is severe pulmonary hypertension. The right ventricular systolic pressure, as measured by Doppler, is 84.56mmHg. Moderate pulmonic regurgitation. The aortic root size is normal. The inferior vena cava is dilated with no significant inspiratory collapse which is consistent estimated right atrial pressure of >15 mmHg. There is no pericardial effusion. CONCLUSIONS -------- 1. Atrial fibrillation. 2. Normal porcine bioprosthetic aortic valve. 3. Mild mitral regurgitation is present. 4. MV Repair. 5. Moderate tricuspid regurgitation present. 6. There is severe pulmonary hypertension. 7. The right ventricular systolic pressure, as measured by Doppler, is 84.56mmHg. 8. Moderate pulmonic regurgitation. 9. The aortic root size is normal. 10. The inferior vena cava is dilated with no significant inspiratory collapse which is consistent estimated right atrial pressure of >15 mmHg. 11. There is no pericardial effusion. 12. This was a technically adequate study. 13. There is mild concentric left ventricular hypertrophy. 14. Overall left ventricular systolic function is mildly impaired with, an EF between 45 - 50 %. 15. The right ventricle is severely enlarged. 16. The right ventricular septal wall is flattened in diastole and systole which is consistent with right ventricular volume and pressure overload. 17. LA is severely dilated >40 ml/m2 18. The right atrial size is normal. 19. 1.5mg of Definity was utilized for enhancement of images ANALYTICAL LAB TECHNICIAN: Elisabeth Solomon RDCS
[2016-11-11] MEDS: POTASSIUM CHLORIDE ER 20 MEQ TAB.ER PO SCH ×2 (12:30→15:26)
[2016-11-11] MEDS: FUROSEMIDE 250 MG in SODIUM CHLORIDE 0.9% 225 ML IVP SCH (12:30)
[2016-11-11] MEDS: MULTIVITAMINS, THERA 1 EACH TAB PO SCH (12:32)
[2016-11-11] MEDS: LACTULOSE 20 GM/30 ML CUP PO PRN (12:32)
--- NOTE | 2016-11-11 12:51 | P.PN ---
Subjective Patient is doing a lot better today. He is currently on room air off oxygen supplements. Objective - Vital Signs Vital signs: Vital Signs Temp 98.2 F 11/11/16 08:00 Pulse 68 11/11/16 08:00 Resp 18 11/11/16 04:00 BP 118/55 11/11/16 08:00 Pulse Ox 95 11/11/16 09:48 Intake & Output 11/10/16 11/11/16 11/11/16 18:59 06:59 18:59 Intake Total 835 155 293.5 Output Total 3825 3250 Balance -2990 -3095 293.5 Weight 112 kg 110.5 kg Intake: IV 55 Furosemide 250 mg In 55 Sodium Chloride 0.9% 225 ml @ 5 MG/HR 5 mls/hr IVP .Q24H [facility] Rx#:[id number] Intake, IV Titration 100 233.5 Amount Furosemide 250 mg In 233.5 Sodium Chloride 0.9% 225 ml @ 5 MG/HR 5 mls/hr IVP .Q24H [facility] Rx#:[id number] ceFAZolin 2 gm In Sodium 100 Chloride 0.9% 100 ml @ 100 mls/hr IVPB Q8HR [facility] Rx#:[id number] Oral 835 60 Output: Urine 3825 3250 Uretheral (Nguyen) 1400 Other: Voiding Method Indwelling Catheter Indwelling Catheter Indwelling Catheter # Bowel Movements 0 - Exam General: The patient is awake and alert, in no distress Eye: there is normal conjunctiva bilaterally. Neck: The neck is supple, there is no JVD. Cardiovascular: Normal S1-S2, no S3-S4, no murmurs. Respiratory: Lungs clear to auscultation bilaterally Gastrointestinal: Abdomen is soft, nontender Musculoskeletal: evidence of anasarca up to the hip bilaterally improving compared to yesterday Neurological:. Speech is normal. Skin: Skin is warm and dry. Both legs are wrapped withAce wrap up to the knee. - Labs CBC & Chem 7: 11/11/16 06:36 11/11/16 06:36 Labs: Abnormal Lab Results - Last 24 Hours (Table) 11/11/16 11/11/16 11/11/16 Range/Units 06:36 06:36 06:36 RBC 2.97 L (4.30-5.90) m/uL Hgb 9.9 L (13.0-17.5) gm/dL Hct 32.4 L (39.0-53.0) % MCV 108.9 H (80.0-100.0) fL MCHC 30.6 L (31.0-37.0) g/dL RDW 16.6 H (11.5-15.5) % Lymphocytes # 0.8 L (1.0-4.8) k/uL PT 19.5 H (9.0-12.0) sec Potassium 3.4 L (3.5-5.1) mmol/L Chloride 97 L (98-107) mmol/L Carbon Dioxide 36 H (22-30) mmol/L Calcium 7.8 L (8.4-10.2) mg/dL HDL Cholesterol 39 L (40-60) mg/dL Assessment and Plan Plan: 1. Severe pulmonary hypertension with cor pulmonale 2. Acute systolic heart failure exacerbation: With estimated ejection fraction of 45% 3. Bilateral lower extremity cellulitis: Currently on IV vancomycin. infectious disease following. 4. Status post intramedullary hip screw fixation to the right hip approximately a month ago in [place]. Seen and evaluated by orthopedic. Continue IV antibiotic no surgical intervention recommended. X-ray reviewed. 5. Paroxysmal atrial fibrillation on anticoagulation with Coumadin. I would monitor INR daily 6. Underlying COPD with no evidence of exacerbation 7. Chronic hypoxic respiratory failure on home O2 2 L via nasal cannula 8. Chronic obstructive uropathy: Patient had indwelling Nguyen catheter since his discharge from the hospital approximately a month ago. He is maintained on Flomax 0.4 mg daily. He had a [facility]ing [facility] which he failed and Nguyen was reinserted. His is very concerned and would like to get an opinion from urology. 9. GI and DVT prophylaxis Patient diuresed significantly and lost approximately 5 kg of his weight since admission. He was maintained on Lasix drip 5 mg per hour which will be discontinued today in light of contraction alkalosis. I would switch his Lasix to by mouth 40 mg twice daily. I would also consult pulmonology for an opinion regarding his pulmonary hypertension. Patient would need extensive workup as an outpatient. Today, I reviewed his medication list and lab work results. Continue current regimen. Appreciate solar energy consultant and designer's recommendations. Repeat lab work in the morning. Monitor I's and O's closely. Patient and his updated about his current condition. All their questions answered to their satisfaction. Plan to discharge back to [facility] possibly tomorrow.
[2016-11-11] MEDS: oxyCODONE-APAP 5-325MG 1 EACH TAB PO PRN (15:14)
[2016-11-11] MEDS: FUROSEMIDE 40 MG TAB PO SCH (15:49)
--- NOTE | 2016-11-11 16:44 | P.CNPUL ---
History of Present Illness Consult date: 11/11/16 Requesting physician: Yeni Nazario Reason for consult: pulmonary hypertension Chief complaint: Lower extremity edema History of present illness: This is a very pleasant 76-year-old gentleman who has a known history of atrial fibrillation, coronary artery disease, congestive heart failure, GERD, previous valve replacement and previous coronary artery bypass grafting. He had also undergone a thyroidectomy. He has a remote history of chronic tobacco use and quit back in 1985. He does occasionally use an albuterol inhaler as needed. He has not been seen by a edge stripper in the past. He also has a history of daily alcohol use. He had recently been on a cruise back in September and sustained a fall and fracture of his right femur. He had undergone repair and was in inpatient rehabilitation where he had developed increasing peripheral edema of the lower extremities. He presented here for the same on 11/08/2016. Since that time he has been diuresing well he remains on a Lasix drip at 5 mg per hour. The edema of the lower extremity has improved significantly. Well here he had an echocardiogram which revealed mildly impaired left ventricular systolic function ejection fraction between 45 and 50%. His right ventricle is severely enlarged with right ventricular septal wall flattening in diastole. He was noted to have severe pulmonary hypertension with an RVSP of 84 mmHg. We're consulted for the same.he is seen today in consultation on the selective care unit. He is awake and alert in no acute distress. He denies any chest pain, palpitations lightheadedness or dizziness. He denies any shortness of breath, cough or congestion. He is maintaining O2 saturations in the 90s on room air. He has been afebrile. Hemodynamically stable. He remains in atrial fibrillation. His initial chest x-ray report revealed evidence of increased lung markings and fluid volume overload suggestive of congestive heart failure. There is also some flattening of the diaphragms compatible with COPD. Review of Systems 14 point review of system was conducted. All negative other than as mentioned in the HPI. Past Medical History Past Medical History: Atrial Fibrillation, Coronary Artery Disease (CAD), Heart Failure, GERD/Reflux History of Any Multi-Drug Resistant Organisms: None Reported Past Surgical History: Cardiac Valve Replacement, Coronary Bypass/CABG Additional Past Surgical History / Comment(s): tyhyroidectomy, pig valve replacement, bilateral knee replacement, rt femur surgery. Past Anesthesia/Blood Transfusion Reactions: No Reported Reaction Past Psychological History: No Psychological Hx Reported Smoking Status: Former smoker Past Alcohol Use History: Daily Past Drug Use History: None Reported - Past Family History Mother Family Medical History: Cancer Medications and Allergies Home Medications Medication Instructions Recorded Confirmed Type Acetaminophen Tab [Tylenol Tab] 650 mg PO Q4H PRN 11/08/16 11/08/16 History Allopurinol [Zyloprim] 100 mg PO BID 11/08/16 11/08/16 History Amino Acids/Protein Hydrolys 30 ml PO DAILY 11/08/16 11/08/16 History [Pro-Stat Supplement] Atorvastatin [Lipitor] 80 mg PO HS 11/08/16 11/08/16 History Bisacodyl 10 mg RECTAL DAILY PRN 11/08/16 11/08/16 History Cephalexin [Keflex] 500 mg PO Q12HR 11/08/16 11/08/16 History Cetirizine HCl 10 mg PO DAILY 11/08/16 11/08/16 History Fluticasone/Vilanterol [Breo 1 puff INHALATION RT-DAILY 11/08/16 11/08/16 History Ellipta 100-25 Mcg Inhaler] Ipratropium-Albuterol Nebulize 3 ml INHALATION RT-Q8H PRN 11/08/16 11/08/16 History [Duoneb 0.5 mg-3 mg/3 ml Soln] Tim Packet 1 packet PO DAILY 11/08/16 11/08/16 History Levothyroxine Sodium [Synthroid] 137 mcg PO HS 11/08/16 11/08/16 History Melatonin 5 mg PO HS 11/08/16 11/08/16 History Multivitamins, Thera [Multivitamin 1 tab PO DAILY 11/08/16 11/08/16 History (formulary)] Omeprazole 20 mg PO HS 11/08/16 11/08/16 History Sennosides/Docusate Sodium 1 tab PO BID 11/08/16 11/08/16 History [[place]-Colace Tablet] Tamsulosin [Flomax] 0.4 mg PO HS 11/08/16 11/08/16 History Tiotropium 18 Mcg/Puff [Spiriva] 1 cap INHALATION RT-DAILY 11/08/16 11/08/16 History Vitamin B Complex 1 cap PO DAILY 11/08/16 11/08/16 History Warfarin [Coumadin] 2.5 mg PO MOFR 11/08/16 11/08/16 History Warfarin [Coumadin] 5 mg PO SUTUWETH 11/08/16 11/08/16 History oxyCODONE HCL/ACETAMINOPHEN 1 tab PO Q4H PRN 11/08/16 11/08/16 History [Percocet 5-325 mg] oxyCODONE-APAP 5-325MG [Percocet 2 tab PO Q6HR PRN 11/08/16 11/08/16 History 5-325 mg] Allergies Allergy/AdvReac Type Severity Reaction Status Date / Time No Known Allergies Allergy Verified 11/08/16 16:47 Physical Exam Vitals: Vital Signs Temp Pulse Resp BP Pulse Ox 11/11/16 12:00 70 118/55 93 L 11/11/16 09:48 95 11/11/16 08:00 98.2 F 68 118/55 95 11/11/16 04:00 97.8 F 63 18 115/55 93 L 11/11/16 00:00 97.6 F 56 L 17 114/57 92 L 11/10/16 20:00 97.2 F L 59 L 18 117/64 94 L Intake and Output 11/11/16 11/11/16 11/11/16 06:59 14:59 22:59 Intake Total 155 383.5 Output Total 2500 1000 Balance -2345 383.5 -1000 Intake: IV 55 Furosemide 250 mg In 55 Sodium Chloride 0.9% 225 ml @ 5 MG/HR 5 mls/hr IVP .Q24H D[facility] Rx#:[id number] Intake, IV Titration 100 233.5 Amount Furosemide 250 mg In 233.5 Sodium Chloride 0.9% 225 ml @ 5 MG/HR 5 mls/hr IVP .Q24H [facility] Rx#:[id number] ceFAZolin 2 gm In Sodium 100 Chloride 0.9% 100 ml @ 100 mls/hr IVPB Q8HR [facility]ID Rx#:[id number] Oral 150 Output: Urine 2500 1000 Uretheral (Nguyen) 650 Other: Voiding Method Indwelling Catheter Indwelling Catheter Weight 110.5 kg GENERAL EXAM: Alert, comfortable in no apparent distress. HEAD: Normocephalic. EYES: Normal reaction of pupils, equal size. NOSE: Clear with pink turbinates. THROAT: No erythema or exudates. NECK: No masses, no JVD. CHEST: No chest wall deformity. LUNGS: Equal air entry with crackles in the posterior bases. Diminished.. CVS: S1 and S2 normal with no audible murmurs, regular rhythm. ABDOMEN: No hepatosplenomegaly, normal bowel sounds, no guarding or rigidity. Extremities: There are [place] wraps to the bilateral lower extremities. A healing wound on the right foot. Peripheral pulses are intact. Results - Laboratory Findings CBC and BMP: 11/11/16 06:36 11/11/16 06:36 PT/INR, D-dimer PT 19.5 sec (9.0-12.0) H 11/11/16 06:36 INR 2.0 (<1.1) 11/11/16 06:36 Abnormal lab findings: Abnormal Labs 11/10/16 11/10/16 11/10/16 06:23 06:23 06:23 RBC 2.86 L Hgb 9.7 L Hct 30.4 L MCV 106.4 H MCHC RDW 16.4 H Lymphocytes # 0.7 L PT 19.0 H Potassium Chloride Carbon Dioxide 32 H Calcium 7.9 L HDL Cholesterol 11/11/16 11/11/16 11/11/16 06:36 06:36 06:36 RBC 2.97 L Hgb 9.9 L Hct 32.4 L MCV 108.9 H MCHC 30.6 L RDW 16.6 H Lymphocytes # 0.8 L PT 19.5 H Potassium 3.4 L Chloride 97 L Carbon Dioxide 36 H Calcium 7.8 L HDL Cholesterol 39 L - Diagnostic Findings Chest x-ray: image reviewed Assessment and Plan Plan: Impression: #1 Acute exacerbation of diastolic congestive heart failure with significant lower extremity edema. #2 Acute exacerbation of suspected chronic obstructive pulmonary disease. #3 Moderate to severe pulmonary hypertension with an RVSP of 84 mmHg. #4 Atrial fibrillation, anticoagulated with warfarin. #5 Recent fracture repair of the right femur requiring inpatient rehabilitation. 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 #7 Hypothyroidism secondary to thyroidectomy. Plan: The patient was seen and evaluated by Dr. Reyes. His echocardiogram, chest x- ray and labs were reviewed. The patient does have significant pulmonary hypertension. We would recommend follow-up in our office will complete full pulmonary function testing and make recommendations for maintenance medications. In the interim, we'll continue to diurese the patient. We'll continue with his pulmonary medications. We'll continue to follow. Time with Patient: Greater than 30
--- NOTE | 2016-11-11 16:50 | PN ---
DATE OF SERVICE: 11/11/2016 REASON FOR FOLLOWUP: Bilateral lower extremity cellulitis. INTERVAL HISTORY: The patient is afebrile. He has been breathing comfortably. Denies significant chest pain. No cough, no abdominal pain. Overall swelling and redness of the legs have improved. On examination, blood pressure is 118/55 with a pulse of 70, temperature 98.2. He is 93% on 1 liter nasal cannula. General description is an elderly male, lying in bed in no distress. RESPIRATORY SYSTEM: Unlabored breathing. Clear to auscultation anteriorly. HEART: S1, S2. Regular rate and rhythm. ABDOMEN: Soft, no tenderness. Lower leg swelling and redness has improved. LABS: Hemoglobin is 9.9, white count 5.4. BUN of 16, creatinine 0.87. DIAGNOSTIC IMPRESSION AND PLAN: Patient with bilateral lower extremity cellulitis with diffuse swelling and redness likely streptococcal disease currently doing well on cefazolin. Plan to finish therapy with p.o. Keflex. present at bedside. Questions and concerns were answered.
[2016-11-11] MEDS: WARFARIN 5 MG TAB PO SCH (18:13)
[2016-11-11] MEDS: SILDENAFIL 20 MG TAB PO SCH ×2 (18:14→21:03)
[2016-11-11] MEDS: TAMSULOSIN 0.4 MG CAP.ER.24H PO SCH (21:02)
[2016-11-11] MEDS: MELATONIN 5 MG TABLET PO SCH (21:02)
[2016-11-11] MEDS: PANTOPRAZOLE 40 MG TABLET PO SCH (21:02)
[2016-11-11] MEDS: ATORVASTATIN 40 MG TAB PO SCH (21:02)
[2016-11-11] MEDS: LEVOTHYROXINE 137 MCG TAB PO SCH (21:03)
[2016-11-11] MEDS ORDERED: ALPRAZolam 0.5 MG TAB ONE ×2 (23:33→23:35)
[2016-11-12 06:38] LABS: Anisocytosis Slight; Basophils % (A) 0 %; CH 33.9; CHCM 32.4; Eosinophils # (A) 0.2 k/uL (0-0.7); Eosinophils % (A) 3 %; HCT 30.9 % (39.0-53.0); HDW 3.36; HGB 10.2 gm/dL (13.0-17.5); Hypochromasia Slight; Luc # (Auto) 0.16; Luc % (Auto) 3; Lymphocytes # (A) 0.6 k/uL (1.0-4.8); Lymphocytes % (A) 9 %; MCH 34.8 pg (25.0-35.0); MCV 105.4 fL (80.0-100.0); Macrocytosis Moderate; Mean Platelet Volume 7.5; Monocytes # (A) 0.4 k/uL (0-1.0); Monocytes % (A) 7 %; Neutrophils # (A) 4.9 k/uL (1.3-7.7); Neutrophils % (A) 79 %; RBC 2.93 m/uL (4.30-5.90); RDW 16.2 % (11.5-15.5); WBC 6.3 k/uL (3.8-10.6); WBC (Perox) 6.94
[2016-11-12] MEDS: ceFAZolin 2 GM in SODIUM CHLORIDE 0.9% 100 ML IVPB SCH ×2 (06:44→10:08)
[2016-11-12 06:48] LABS: INR 2.2 (<1.1); Prothrombin Time 21.4 sec (9.0-12.0)
[2016-11-12 06:51] LABS: Anion Gap 8 mmol/L; Blood Urea Nitrogen 14 mg/dL (9-20); Calcium 7.9 mg/dL (8.4-10.2); Carbon Dioxide 35 mmol/L (22-30); Chloride 96 mmol/L (98-107); Glucose 87 mg/dL (74-99); Magnesium 1.6 mg/dL (1.6-2.3); Non-African American GFR(MDRD) >60 (>60 ml/min/1.73 sqM); Potassium 3.4 mmol/L (3.5-5.1); Sodium 139 mmol/L (137-145)
[2016-11-12] MEDS: SYMBICORT 80-4.5 MCG INHALER INHALATION SCH ×2 (08:47→19:33)
--- NOTE | 2016-11-12 09:45 | P.PN ---
Subjective This is a pleasant 76-year-old gentleman whom we are following for cellulitis. Patient is status post intramedullary nailing and hip screw in [place] approximately 1 month ago. Patient is seen and evaluated at bedside. He feels his hip is improving overall. Objective - Vital Signs Vital signs: Vital Signs Temp 97.6 F 11/12/16 07:55 Pulse 65 11/12/16 07:55 Resp 20 11/12/16 07:55 BP 110/56 11/12/16 07:55 Pulse Ox 96 11/12/16 08:48 Intake & Output 11/11/16 11/12/16 11/12/16 18:59 06:59 18:59 Intake Total 383.5 840 0 Output Total 2325 1950 Balance -1941.5 -1110 0 Weight 107 kg Intake: IV 0 Furosemide 250 mg In 0 Sodium Chloride 0.9% 225 ml @ 5 MG/HR 5 mls/hr IVP .Q24H [facility] Rx#:[id number] Intake, IV Titration 233.5 Amount Furosemide 250 mg In 233.5 Sodium Chloride 0.9% 225 ml @ 5 MG/HR 5 mls/hr IVP .Q24H [facility] Rx#:[id number] Oral 150 840 0 Output: Urine 2325 1950 Uretheral (Nguyen) 650 Other: Voiding Method Indwelling Catheter Indwelling Catheter Indwelling Catheter - Exam Patient does not appear in acute distress. He is alert and orientated 3. Hip incisions are well healed with no drainage. There is mild erythema which appears improved. [place] wrap is intact to his bilateral lower extremities. There is wound on the dorsal aspect of his right foot which she states is improved from his surgery. He has good foot and ankle motion without difficulty. Sensation and circulatory status is intact. - Labs CBC & Chem 7: 11/12/16 06:10 11/12/16 06:10 Labs: Abnormal Lab Results - Last 24 Hours (Table) 11/12/16 11/12/16 11/12/16 Range/Units 06:10 06:10 06:10 RBC 2.93 L (4.30-5.90) m/uL Hgb 10.2 L (13.0-17.5) gm/dL Hct 30.9 L (39.0-53.0) % MCV 105.4 H (80.0-100.0) fL RDW 16.2 H (11.5-15.5) % Lymphocytes # 0.6 L (1.0-4.8) k/uL PT 21.4 H (9.0-12.0) sec Potassium 3.4 L (3.5-5.1) mmol/L Chloride 96 L (98-107) mmol/L Carbon Dioxide 35 H (22-30) mmol/L Calcium 7.9 L (8.4-10.2) mg/dL Assessment and Plan (1) Swelling of right lower extremity Status: Acute Plan: No surgical intervention is planned at this time. At about its as directed by infectious disease. The patient will continue with follow-up care in regards to his fracture in the outpatient setting with Dr. Sylvain Cota.
[2016-11-12] MEDS: ALLOPURINOL 100 MG TAB PO SCH ×2 (10:08→20:36)
[2016-11-12] MEDS: LORATADINE 10 MG TAB PO SCH (10:09)
[2016-11-12] MEDS: B COMPLEX-VIT C-VIT E-ZINC 1 EACH TAB PO SCH (10:09)
[2016-11-12] MEDS: SENNOSIDES-DOCUSATE SODIUM 1 EACH TAB PO SCH ×2 (10:09→20:38)
[2016-11-12] MEDS: SILDENAFIL 20 MG TAB PO SCH ×3 (10:09→20:37)
[2016-11-12] MEDS: FUROSEMIDE 40 MG TAB PO SCH ×2 (10:09→15:21)
[2016-11-12] MEDS: ASPIRIN 325 MG TAB PO SCH (10:11)
--- NOTE | 2016-11-12 10:43 | P.PN ---
Subjective Patient is doing well today. He was started on sildenafil yesterday and is tolerating with no problems with low blood pressure. He is complaining of constipation today. He did not have a bowel movement since admission. His bowel regimen was adjusted with no relief. His abdomen is soft and nontender. He is passing gas. He had a suppository this morning and believes that he is about to have a bowel movement the middle of it. Objective - Vital Signs Vital signs: Vital Signs Temp 97.6 F 11/12/16 07:55 Pulse 65 11/12/16 07:55 Resp 20 11/12/16 07:55 BP 110/56 11/12/16 07:55 Pulse Ox 96 11/12/16 08:48 Intake & Output 11/11/16 11/12/16 11/12/16 18:59 06:59 18:59 Intake Total 383.5 840 0 Output Total 2325 1950 Balance -1941.5 -1110 0 Weight 107 kg Intake: IV 0 Furosemide 250 mg In 0 Sodium Chloride 0.9% 225 ml @ 5 MG/HR 5 mls/hr IVP .Q24H [facility]ID Rx#:[id number] Intake, IV Titration 233.5 Amount Furosemide 250 mg In 233.5 Sodium Chloride 0.9% 225 ml @ 5 MG/HR 5 mls/hr IVP .Q24H [facility] Rx#:[id number] Oral 150 840 0 Output: Urine 2324 1950 Uretheral (Nguyen) 650 Other: Voiding Method Indwelling Catheter Indwelling Catheter Indwelling Catheter - Exam General: The patient is awake and alert, in no distress Eye: there is normal conjunctiva bilaterally. Neck: The neck is supple, there is no JVD. Cardiovascular: Normal S1-S2, no S3-S4, no murmurs. Respiratory: Lungs clear to auscultation bilaterally Gastrointestinal: Abdomen is soft, nontender Musculoskeletal: evidence of anasarca up to the hip bilaterally improving compared to yesterday Neurological:. Speech is normal. Skin: Skin is warm and dry. Both legs are wrapped withAce wrap up to the knee. - Labs CBC & Chem 7: 11/12/16 06:10 11/12/16 06:10 Labs: Abnormal Lab Results - Last 24 Hours (Table) 11/12/16 11/12/16 11/12/16 Range/Units 06:10 06:10 06:10 RBC 2.93 L (4.30-5.90) m/uL Hgb 10.2 L (13.0-17.5) gm/dL Hct 30.9 L (39.0-53.0) % MCV 105.4 H (80.0-100.0) fL RDW 16.2 H (11.5-15.5) % Lymphocytes # 0.6 L (1.0-4.8) k/uL PT 21.4 H (9.0-12.0) sec Potassium 3.4 L (3.5-5.1) mmol/L Chloride 96 L (98-107) mmol/L Carbon Dioxide 35 H (22-30) mmol/L Calcium 7.9 L (8.4-10.2) mg/dL Assessment and Plan Plan: 1. Severe pulmonary hypertension with cor pulmonale: Seen and evaluated by pulmonology. Started on sildenafil 3 times a day. Continue diuresis. Follow- up as an outpatient 2. Acute systolic heart failure exacerbation: With estimated ejection fraction of 45% 3. Bilateral lower extremity cellulitis: Seen and evaluated by infectious disease. Plan to finish antibiotic course with oral Keflex. 4. Status post intramedullary hip screw fixation to the right hip approximately a month ago in [place]. Seen and evaluated by orthopedic. Continue IV antibiotic no surgical intervention recommended. X-ray reviewed. 5. Paroxysmal atrial fibrillation on anticoagulation with Coumadin. I would monitor INR daily 6. Underlying COPD with no evidence of exacerbation 7. Chronic hypoxic respiratory failure on home O2 2 L via nasal cannula 8. Chronic obstructive uropathy: Patient had indwelling Nguyen catheter since his discharge from the hospital approximately a month ago. He is maintained on Flomax 0.4 mg daily. He had a voiding trial last week at the al[facility] which he failed and Nguyen was reinserted. His is very concerned and would like to get an opinion from urology. 9. GI and DVT prophylaxis Today, I reviewed his medication list and lab work results. Continue current regimen. Appreciate building consultant's recommendations. Repeat lab work in the morning. Monitor I's and O's closely. Patient and his updated about his current condition. All their questions answered to their satisfaction. Plan to discharge back to ECF possibly tomorrow hopefully after patient has a bowel movement.
[2016-11-12] MEDS: SODIUM CHLORIDE 0.9% 1,000 ML IV SCH ×2 (11:00→20:39)
[2016-11-12] MEDS: LACTULOSE 20 GM/30 ML CUP PO PRN (11:43)
[2016-11-12] MEDS: MULTIVITAMINS, THERA 1 EACH TAB PO SCH (12:16)
--- NOTE | 2016-11-12 12:32 | P.PN ---
Subjective Principal diagnosis: Acute on chronic diastolic congestive heart failure and cor pulmonale This is a very pleasant 76-year-old gentleman who has a known history of atrial fibrillation, coronary artery disease, congestive heart failure, GERD, previous valve replacement and previous coronary artery bypass grafting. He had also undergone a thyroidectomy. He has a remote history of chronic tobacco use and quit back in 1985. He does occasionally use an albuterol inhaler as needed. He has not been seen by a punch out crew member in the past. He also has a history of daily alcohol use. He had recently been on a cruise back in September and sustained a fall and fracture of his right femur. He had undergone repair and was in inpatient rehabilitation where he had developed increasing peripheral edema of the lower extremities. He presented here for the same on 11/08/2016. Since that time he has been diuresing well he remains on a Lasix drip at 5 mg per hour. The edema of the lower extremity has improved significantly. Well here he had an echocardiogram which revealed mildly impaired left ventricular systolic function ejection fraction between 45 and 50%. His right ventricle is severely enlarged with right ventricular septal wall flattening in diastole. He was noted to have severe pulmonary hypertension with an RVSP of 84 mmHg. We're consulted for the same.he is seen today in consultation on the selective care unit. He is awake and alert in no acute distress. He denies any chest pain, palpitations lightheadedness or dizziness. He denies any shortness of breath, cough or congestion. He is maintaining O2 saturations in the 90s on room air. He has been afebrile. Hemodynamically stable. He remains in atrial fibrillation. His initial chest x-ray report revealed evidence of increased lung markings and fluid volume overload suggestive of congestive heart failure. There is also some flattening of the diaphragms compatible with COPD. Patient was reevaluated today on 11/12/2016, seems to be doing much better, breathing a lot easier, and the swelling in his lower extremities is significantly improved. Patient was started on sildenafil yesterday, and he seems to be tolerating the dose quite well at 20 mg 3 times a day. I plan to keep him on this dose on outpatient basis, and hopefully he will be able to get the medication from the [facility]. Prescription was given today to his daughter and it will be faxed to the [facility]. Patient's main issue today seems to be related to constipation, and has not had a bowel movement in the last 4 days. Objective - Vital Signs Vital signs: Vital Signs Temp 97 F L 11/12/16 11:49 Pulse 62 11/12/16 11:49 Resp 18 11/12/16 11:49 BP 100/55 11/12/16 11:49 Pulse Ox 96 11/12/16 08:48 Intake & Output 11/11/16 11/12/16 11/12/16 18:59 06:59 18:59 Intake Total 383.5 840 0 Output Total 2325 1950 Balance -1941.5 -1110 0 Weight 107 kg Intake: IV 0 Furosemide 250 mg In 0 Sodium Chloride 0.9% 225 ml @ 5 MG/HR 5 mls/hr IVP .Q24H [facility] Rx#:[id number] Intake, IV Titration 233.5 Amount Furosemide 250 mg In 233.5 Sodium Chloride 0.9% 225 ml @ 5 MG/HR 5 mls/hr IVP .Q24H [facility] Rx#:[id number] Oral 150 840 0 Output: Urine 2324 1950 Uretheral (Nguyen) 650 Other: Voiding Method Indwelling Catheter Indwelling Catheter Indwelling Catheter - Exam GENERAL EXAM: Alert, comfortable in no apparent distress. HEAD: Normocephalic. EYES: Normal reaction of pupils, equal size. NOSE: Clear with pink turbinates. THROAT: No erythema or exudates. NECK: No masses, no JVD. CHEST: No chest wall deformity. LUNGS: Equal air entry with crackles in the posterior bases. Diminished.. CVS: S1 and S2 normal with no audible murmurs, regular rhythm. ABDOMEN: No hepatosplenomegaly, normal bowel sounds, no guarding or rigidity. Extremities: There are [place] wraps to the bilateral lower extremities. A healing wound on the right foot. Peripheral pulses are intact. - Labs CBC & Chem 7: 11/12/16 06:10 11/12/16 06:10 Labs: Abnormal Lab Results - Last 24 Hours (Table) 11/12/16 11/12/16 11/12/16 Range/Units 06:10 06:10 06:10 RBC 2.93 L (4.30-5.90) m/uL Hgb 10.2 L (13.0-17.5) gm/dL Hct 30.9 L (39.0-53.0) % MCV 105.4 H (80.0-100.0) fL RDW 16.2 H (11.5-15.5) % Lymphocytes # 0.6 L (1.0-4.8) k/uL PT 21.4 H (9.0-12.0) sec Potassium 3.4 L (3.5-5.1) mmol/L Chloride 96 L (98-107) mmol/L Carbon Dioxide 35 H (22-30) mmol/L Calcium 7.9 L (8.4-10.2) mg/dL Assessment and Plan Plan: #1 Acute exacerbation of diastolic congestive heart failure with significant lower extremity edema. #2 Acute exacerbation of suspected chronic obstructive pulmonary disease. #3 Moderate to severe pulmonary hypertension with an RVSP of 84 mmHg. #4 Atrial fibrillation, anticoagulated with warfarin. #5 Recent fracture repair of the right femur requiring inpatient rehabilitation. 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 #7 Hypothyroidism secondary to thyroidectomy. Recommendation: I continue to agree with the present treatment plan, sildenafil was prescribed, continue diuretics, his constipation is being addressed by the admitting physician, and possible discharge planning in the next 24 hours to ECF. Patient was advised to come and see me on outpatient basis for follow-up on his COPD and pulmonary hypertension. Patient will eventually need a sleep study, and a PFT which could be done on outpatient basis. Time with Patient: Less than 30
[2016-11-12] MEDS ORDERED: Magnesium Replacement Protocol 1 EACH MISC MISCELLANE PRN (14:45)
[2016-11-12] MEDS ORDERED: Potassium Replacement Protocol 1 EACH MISC MISCELLANE PRN ×2 (14:46→18:49)
[2016-11-12] MEDS: CEPHALEXIN 500 MG CAP PO SCH ×2 (15:17→20:37)
[2016-11-12] MEDS: MAGNESIUM SULFATE-D5W PMX 1 GM in DEXTROSE/WATER 1 100ML.BAG IVPB SCH ×2 (15:17→17:01)
[2016-11-12] MEDS: WARFARIN 2.5 MG TAB PO SCH (15:22)
--- NOTE | 2016-11-12 15:28 | PN ---
DATE OF SERVICE: 11/12/2016 Reason for followup is bilateral lower extremity cellulitis. INTERVAL HISTORY: The patient is afebrile. He is currently breathing comfortably. His main symptom has been constipation and did not have any bowel movement for now 4 days and wants something to be given for it. On examination, blood pressure is 155 with pulse of 52, temperature 97.1. He is 96% on 2 L nasal cannula. General description is an elderly male, lying in bed in no distress. RESPIRATORY SYSTEM: Unlabored breathing. Clear to auscultation. HEART: S1, S2, regular rate and rhythm. ABDOMEN: Soft, no tenderness. LABS: Hemoglobin is 10.1, white count 6.3 with a BUN of 14, creatinine 0.88. Blood culture has been negative. DIAGNOSTIC IMPRESSION AND PLAN: Patient with bilateral lower extremity cellulitis with diffuse swelling and redness , likely streptococcal disease. Patient responded to cefazolin and will be continued with the plan to finish therapy with Keflex. Continue the [place] wrap to keep the swelling down. Continue supportive care. MTDD
[2016-11-12] MEDS: POTASSIUM CHLORIDE ER 20 MEQ TAB.ER PO SCH ×4 (15:30→20:38)
[2016-11-12] MEDS: TAMSULOSIN 0.4 MG CAP.ER.24H PO SCH (20:36)
[2016-11-12] MEDS: PANTOPRAZOLE 40 MG TABLET PO SCH (20:36)
[2016-11-12] MEDS: ATORVASTATIN 40 MG TAB PO SCH (20:36)
[2016-11-12] MEDS: MELATONIN 5 MG TABLET PO SCH (20:36)
[2016-11-12] MEDS: LEVOTHYROXINE 137 MCG TAB PO SCH (20:36)
[2016-11-12] MEDS ORDERED: POLYETHYLENE GLYCOL 3350 17 GM POWD.PACK PO SCH (21:00)
[2016-11-13 06:42] LABS: Anisocytosis Slight; Basophils % (A) 0 %; CH 33.8; CHCM 30.9; Eosinophils # (A) 0.2 k/uL (0-0.7); Eosinophils % (A) 3 %; HCT 32.2 % (39.0-53.0); HDW 3.05; HGB 9.8 gm/dL (13.0-17.5); Hypochromasia Moderate; Luc # (Auto) 0.14; Luc % (Auto) 2; Lymphocytes # (A) 0.5 k/uL (1.0-4.8); Lymphocytes % (A) 8 %; MCH 33.5 pg (25.0-35.0); MCHC 30.5 g/dL (31.0-37.0); MCV 109.7 fL (80.0-100.0); Macrocytosis Marked; Mean Platelet Volume 7.8; Monocytes # (A) 0.5 k/uL (0-1.0); Monocytes % (A) 7 %; Neutrophils # (A) 5.6 k/uL (1.3-7.7); Neutrophils % (A) 80 %; RBC 2.93 m/uL (4.30-5.90); RDW 16.3 % (11.5-15.5); WBC 6.9 k/uL (3.8-10.6); WBC (Perox) 7.46
[2016-11-13 06:49] LABS: INR 2.3 (<1.1); Prothrombin Time 22.3 sec (9.0-12.0)
[2016-11-13 06:57] LABS: Anion Gap 7 mmol/L; Blood Urea Nitrogen 12 mg/dL (9-20); Calcium 8.1 mg/dL (8.4-10.2); Carbon Dioxide 34 mmol/L (22-30); Chloride 98 mmol/L (98-107); Glucose 98 mg/dL (74-99); Magnesium 2.1 mg/dL (1.6-2.3); Non-African American GFR(MDRD) >60 (>60 ml/min/1.73 sqM); Sodium 139 mmol/L (137-145)
[2016-11-13 07:05] LABS: Manual Review Performed
[2016-11-13 08:33] VITALS: TEMP 98.5
[2016-11-13] MEDS: FUROSEMIDE 40 MG TAB PO SCH ×2 (10:58→15:05)
[2016-11-13] MEDS: ALLOPURINOL 100 MG TAB PO SCH (10:58)
[2016-11-13] MEDS: CEPHALEXIN 500 MG CAP PO SCH ×2 (10:58→15:05)
[2016-11-13] MEDS: B COMPLEX-VIT C-VIT E-ZINC 1 EACH TAB PO SCH (10:58)
[2016-11-13] MEDS: ASPIRIN 325 MG TAB PO SCH (10:58)
[2016-11-13] MEDS: SENNOSIDES-DOCUSATE SODIUM 1 EACH TAB PO SCH (10:58)
[2016-11-13] MEDS: LORATADINE 10 MG TAB PO SCH (10:58)
[2016-11-13] MEDS: SILDENAFIL 20 MG TAB PO SCH ×2 (10:58→15:05)
--- NOTE | 2016-11-13 11:15 | P.PN ---
Subjective Principal diagnosis: Acute on chronic diastolic congestive heart failure and cor pulmonale This is a very pleasant 76-year-old gentleman who has a known history of atrial fibrillation, coronary artery disease, congestive heart failure, GERD, previous valve replacement and previous coronary artery bypass grafting. He had also undergone a thyroidectomy. He has a remote history of chronic tobacco use and quit back in 1985. He does occasionally use an albuterol inhaler as needed. 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 He also has a history of daily alcohol use. He had recently been on a cruise back in September and sustained a fall and fracture of his right femur. He had undergone repair and was in inpatient rehabilitation where he had developed increasing peripheral edema of the lower extremities. He presented here for the same on 11/08/2016. Since that time he has been diuresing well he remains on a Lasix drip at 5 mg per hour. The edema of the lower extremity has improved significantly. Well here he had an echocardiogram which revealed mildly impaired left ventricular systolic function ejection fraction between 45 and 50%. His right ventricle is severely enlarged with right ventricular septal wall flattening in diastole. He was noted to have severe pulmonary hypertension with an RVSP of 84 mmHg. We're consulted for the same.he is seen today in consultation on the selective care unit. He is awake and alert in no acute distress. He denies any chest pain, palpitations lightheadedness or dizziness. He denies any shortness of breath, cough or congestion. He is maintaining O2 saturations in the 90s on room air. He has been afebrile. Hemodynamically stable. He remains in atrial fibrillation. His initial chest x-ray report revealed evidence of increased lung markings and fluid volume overload suggestive of congestive heart failure. There is also some flattening of the diaphragms compatible with COPD. Patient was reevaluated today on 11/12/2016, seems to be doing much better, breathing a lot easier, and the swelling in his lower extremities is significantly improved. Patient was started on sildenafil yesterday, and he seems to be tolerating the dose quite well at 20 mg 3 times a day. I plan to keep him on this dose on outpatient basis, and hopefully he will be able to get the medication from the [facility]. Prescription was given today to his daughter and it will be faxed to the [facility]. Patient's main issue today seems to be related to constipation, and has not had a bowel movement in the last 4 days. Reevaluated today on 11/13/2016, patient continues to do well, he is basically asymptomatic. His GI symptoms have resolved. I believe the patient is going to be discharged home today or possibly tomorrow and I have explained to him that I need to see him on outpatient basis for further workup of his pulmonary hypertension, patient will need a PFT had a sleep study on outpatient basis. CBC was reviewed INR is 2.3 electrolytes and renal profile are normal bicarb is 34. Objective - Vital Signs Vital signs: Vital Signs Temp 98.5 F 11/13/16 08:32 Pulse 70 11/13/16 08:32 Resp 18 11/13/16 08:35 BP 113/55 11/13/16 08:32 Pulse Ox 94 L 11/13/16 08:32 Intake & Output 11/12/16 11/13/16 11/13/16 18:59 06:59 18:59 Intake Total 60 500 Output Total 375 425 Balance -315 75 Weight 105 kg Intake: Oral 60 500 Output: Urine 375 425 Other: Voiding Method Indwelling Catheter Indwelling Catheter Indwelling Catheter # Bowel Movements 1 - Exam GENERAL EXAM: Alert, comfortable in no apparent distress. HEAD: Normocephalic. EYES: Normal reaction of pupils, equal size. NOSE: Clear with pink turbinates. THROAT: No erythema or exudates. NECK: No masses, no JVD. CHEST: No chest wall deformity. LUNGS: Equal air entry with crackles in the posterior bases. Diminished.. CVS: S1 and S2 normal with no audible murmurs, regular rhythm. ABDOMEN: No hepatosplenomegaly, normal bowel sounds, no guarding or rigidity. Extremities: There are [place] wraps to the bilateral lower extremities. A healing wound on the right foot. Peripheral pulses are intact. - Labs CBC & Chem 7: 11/13/16 06:16 11/13/16 06:16 Labs: Abnormal Lab Results - Last 24 Hours (Table) 11/12/16 11/13/16 11/13/16 Range/Units 18:17 06:16 06:16 RBC 2.93 L (4.30-5.90) m/uL Hgb 9.8 L (13.0-17.5) gm/dL Hct 32.2 L (39.0-53.0) % MCV 109.7 H (80.0-100.0) fL MCHC 30.5 L (31.0-37.0) g/dL RDW 16.3 H (11.5-15.5) % Lymphocytes # 0.5 L (1.0-4.8) k/uL PT 22.3 H (9.0-12.0) sec Potassium 3.4 L (3.5-5.1) mmol/L Carbon Dioxide (22-30) mmol/L Calcium (8.4-10.2) mg/dL 11/13/16 Range/Units 06:16 RBC (4.30-5.90) m/uL Hgb (13.0-17.5) gm/dL Hct (39.0-53.0) % MCV (80.0-100.0) fL MCHC (31.0-37.0) g/dL RDW (11.5-15.5) % Lymphocytes # (1.0-4.8) k/uL PT (9.0-12.0) sec Potassium (3.5-5.1) mmol/L Carbon Dioxide 34 H (22-30) mmol/L Calcium 8.1 L (8.4-10.2) mg/dL Assessment and Plan Plan: #1 Acute exacerbation of diastolic congestive heart failure with significant lower extremity edema. #2 Acute exacerbation of suspected chronic obstructive pulmonary disease. #3 Moderate to severe pulmonary hypertension with an RVSP of 84 mmHg. #4 Atrial fibrillation, anticoagulated with warfarin. #5 Recent fracture repair of the right femur requiring inpatient rehabilitation. 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 #7 Hypothyroidism secondary to thyroidectomy. Recommendation: I continue to agree with the present treatment plan, sildenafil was prescribed, continue diuretics, consider discharge planning today and follow -up with me on outpatient basis sometime in the next 2 weeks. Time with Patient: Less than 30
[2016-11-13] MEDS: TIOTROPIUM 18 MCG/PUFF INHALER INHALATION SCH (11:21)
[2016-11-13] MEDS: SYMBICORT 80-4.5 MCG INHALER INHALATION SCH ×2 (11:22→20:21)
--- NOTE | 2016-11-13 12:08 | P.PN ---
Progress Note - Text Patient is a very pleasant 76-year-old male who is seen and evaluated the bedside for follow-up evaluation following right femur/hip intramedullary rodding performed in [place] in early September 2016 with subsequent cellulitis. Patient has been residing at [facility] [place] He was admitted for further treatment for cellulitis with lower extremity swelling. Since his admittance his symptoms have been improving. His cellulitis has been controlled. He is currently receiving oral antibiotics. He has no pain at the right hip. He has not been doing much weightbearing on the right lower extremity. He is currently 25% weightbearing with the assistance of a walker. Physical therapy presented to the room at the time of physical examination and plans to help work on the patient's mobility today. Patient is currently waiting to be seen and examined by Dr. Wells and Dr. Nazario. Per nursing, patient is planned to be returned back to [facility] today. Patient states he is ready for discharge. He currently denies any nausea, vomiting, fever, or chills. Physical Exam: Patient is awake, alert, and oriented 3 Vital signs stable Good chest excursion with deep inspiration and expiration Abdomen soft nontender No signs or symptoms of DVT; no calf pain Right hip incisions appear to be healing well Incisions are clean, dry, and intact; no purulence or signs of infection Mild erythema around the right hip No pain with palpation about the right hip [place] wraps applied to the bilateral lower extremities Extensor hallucis longus, plantarflexion, and dorsiflexion positive sustained bilateral lower extremities Patient is able to wiggle all toes the bilateral lower extremities without difficulty Wound over the dorsal aspect of the right foot which is currently dressed Assessment: Cellulitis the right hip Status post intramedullary rodding of the right femur/hip status post fall Plan: 1. From an orthopedic standpoint, patient is clear for discharge back to [facility]. He should continue to remain 25% weightbearing on the right lower extremity. He is encouraged to continue ambulation with the assistance of a walker. At this time we are not currently planning for further surgical intervention in regards to his right femur/hip. We will plan have him follow- up with Dr. Sylvain Cota in 2 weeks at [facility] for further evaluation. 2. Medicine and infectious disease to continue following the patient 3. Continue with other home medications and discharge medications as prescribed by infectious disease and medicine
[2016-11-13] MEDS: MULTIVITAMINS, THERA 1 EACH TAB PO SCH (12:29)
[2016-11-13] MEDS: SODIUM CHLORIDE 0.9% 1,000 ML IV SCH (14:08)
--- NOTE | 2016-11-13 15:04 | P.DS ---
Providers Date of admission: 11/08/16 17:31 Expected date of discharge: 11/13/16 [facility] Consults: 11/08/16 20:02 Consult Physician Routine Consulting Provider: Israel Wells Consult Reason/Comments: Cellulitis Do you want consulting provider notified?: Yes, Notify in am 11/09/16 08:08 Consult Physician Routine Consulting Provider: Sylvain Cota Consult Reason/Comments: left hip pain post procedure Do you want consulting provider notified?: Yes 11/09/16 11:35 Consult Physician Routine Consulting Provider: Jose Calvert Consult Reason/Comments: Obstructive uropathy Do you want consulting provider notified?: Yes 11/11/16 12:00 Consult Physician Routine Consulting Provider: Lizet Reyes Consult Reason/Comments: pulmonary hypertension Do you want consulting provider notified?: Yes Primary care physician: [facility] Course: 1. Severe pulmonary hypertension with cor pulmonale: Seen and evaluated by pulmonology. Started on sildenafil 3 times a day. Continue diuresis. Follow- up as an outpatient 2. Acute systolic heart failure exacerbation: With estimated ejection fraction of 45% 3. Bilateral lower extremity cellulitis: Seen and evaluated by infectious disease. Plan to finish antibiotic course with oral Keflex. 4. Status post intramedullary hip screw fixation to the right hip approximately a month ago in [place]. Seen and evaluated by orthopedic. Continue IV antibiotic no surgical intervention recommended. X-ray reviewed. 5. Paroxysmal atrial fibrillation on anticoagulation with Coumadin. I would monitor INR daily 6. Underlying COPD with no evidence of exacerbation 7. Chronic hypoxic respiratory failure on home O2 2 L via nasal cannula 8. Chronic obstructive uropathy: Patient had indwelling Nguyen catheter since his discharge from the hospital approximately a month ago. He is maintained on Flomax 0.4 mg daily. Plan for voiding trial at [facility] on Tuesday Patient Condition at Discharge: Stable Plan - Discharge Summary New Discharge Prescriptions: oxyCODONE-APAP 5-325MG [Percocet 5-325 mg] 1 each PO Q6HR PRN #30 tab PRN Reason: Pain Discharge Medication List Acetaminophen Tab [Tylenol] 650 mg PO Q4H PRN 11/08/16 [History] Allopurinol [Zyloprim] 100 mg PO BID 11/08/16 [History] Amino Acids/Protein Hydrolys [Pro-Stat Supplement] 30 ml PO DAILY 11/08/16 [ History] Bisacodyl 10 mg RECTAL DAILY PRN 11/08/16 [History] Cetirizine HCl 10 mg PO DAILY 11/08/16 [History] Fluticasone/Vilanterol [Breo Ellipta 100-25 Mcg Inhaler] 1 puff INHALATION RT- DAILY 11/08/16 [History] Ipratropium-Albuterol Nebulize [Duoneb 0.5 mg-3 mg/3 ml Soln] 3 ml INHALATION RT -Q8H PRN 11/08/16 [History] Levothyroxine Sodium [Synthroid] 137 mcg PO HS 11/08/16 [History] Melatonin 5 mg PO HS 11/08/16 [History] Multivitamins, Thera [Multivitamin (formulary)] 1 tab PO DAILY 11/08/16 [History ] Omeprazole 20 mg PO HS 11/08/16 [History] Sennosides/Docusate Sodium [[place]-Colace Tablet] 1 tab PO BID 11/08/16 [History] Tamsulosin [Flomax] 0.4 mg PO HS 11/08/16 [History] Tiotropium 18 Mcg/Puff [Spiriva] 1 cap INHALATION RT-DAILY 11/08/16 [History] Vitamin B Complex 1 cap PO DAILY 11/08/16 [History] Warfarin [Coumadin] 2.5 mg PO MOFR 11/08/16 [History] Warfarin [Coumadin] 5 mg PO SUTUWETH 11/08/16 [History] Atorvastatin [Lipitor] 40 mg PO HS tab 11/13/16 [Rx] Cephalexin [Keflex] 500 mg PO Q12HR 5 Days 11/13/16 [Rx] Furosemide [Lasix] 40 mg PO BID@0900,1600 tab 11/13/16 [Rx] Lactulose [Cephulac] 30 gm PO DAILY PRN #0 ml 11/13/16 [Rx] Sildenafil [Revatio] 20 mg PO TID tab 11/13/16 [Rx] oxyCODONE-APAP 5-325MG [Percocet 5-325 mg] 1 each PO Q6HR PRN #30 tab 11/13/16 [ Rx] Follow up Appointment(s)/Referral(s): Sylvain Cota DO [Doctor of Osteopathic Medicine] - 2 Weeks Yeni Nazario MD [Primary Care Provider] - 1 Week Activity/Diet/Wound Care/Special Instructions: 25% weightbearing status to the right lower extremity. Discharge Disposition: TRANSFER TO SNF/ECF
[2016-11-13 15:08] VITALS: BP 115/56; PULSE 76; RESP 16
--- NOTE | 2016-11-13 15:39 | PN ---
DATE OF SERVICE: 11/13/2016 Reason for followup is bilateral lower extremity cellulitis. INTERVAL HISTORY: The patient is afebrile. He is currently breathing comfortably. The patient denies having significant chest pain or shortness of breath or cough. No abdominal pain. Only pain in his leg area. On examination, blood pressure 111/53 with a pulse of 77, temperature 98.5. He is 91% on 2 L nasal cannula. General description is an elderly age male lying in bed in no distress. RESPIRATORY SYSTEM: Unlabored breathing. Clear to auscultation anteriorly. HEART: S1, S2. Regular rate and regular. ABDOMEN: Soft. No tenderness. LABS: Hemoglobin 9.8, white count 6.9 with a BUN 12 and creatinine 0.79. Culture negative. DIAGNOSTIC IMPRESSION AND PLAN: Patient with bilateral lower extremity cellulitis with diffuse swelling and redness likely streptococcal disease. The patient did have clinical improvement. Plan at this time to give Keflex along with [place] wrap to keep the swelling down. Continue supportive care. MTDD
== END 2016-11-14 05:07 | DRG 292 ==
LOC: EC 14:59 → 6SEL 17:31
PROVIDERS: ADMIT Internal Medicine; ATTEND Internal Medicine
PROC: 0T2BX0Z Change Drainage Device in Bladder, External Approach (ICD-10-PCS; principal; 2016-11-08)
DX: I11.0 Hypertensive heart disease with heart failure (principal); J96.11 Chronic respiratory failure with hypoxia; L03.115 Cellulitis of right lower limb; I27.2 Other secondary pulmonary hypertension; Z99.81 Dependence on supplemental oxygen; L03.116 Cellulitis of left lower limb; I48.0 Paroxysmal atrial fibrillation; I50.23 Acute on chronic systolic (congestive) heart failure; J44.9 Chronic obstructive pulmonary disease, unspecified; Z79.01 Long term (current) use of anticoagulants; I25.10 Atherosclerotic heart disease of native coronary artery without angina pectoris; S72.141D Displaced intertrochanteric fracture of right femur, subsequent encounter for closed fracture with routine healing; I87.2 Venous insufficiency (chronic) (peripheral); R53.1 Weakness; E89.0 Postprocedural hypothyroidism; K59.00 Constipation, unspecified; N13.9 Obstructive and reflux uropathy, unspecified; K21.9 Gastro-esophageal reflux disease without esophagitis; Z96.653 Presence of artificial knee joint, bilateral; Z95.1 Presence of aortocoronary bypass graft; Z87.891 Personal history of nicotine dependence; Z96.0 Presence of urogenital implants; Z98.890 Other specified postprocedural states; Z95.3 Presence of xenogenic heart valve; Z79.899 Other long term (current) drug therapy; Z80.9 Family history of malignant neoplasm, unspecified; Z96.641 Presence of right artificial hip joint; Z71.3 Dietary counseling and surveillance; Z91.81 History of falling; Z79.891 Long term (current) use of opiate analgesic; Z79.51 Long term (current) use of inhaled steroids; W01.0XXD Fall on same level from slipping, tripping and stumbling without subsequent striking against object, subsequent encounter
CPT/HCPCS: 36415; 71020; 73502; 80048; 80053; 80061; 80202; 82550; 82553; 83605; 83735; 83880; 84132; 84484; 85025; 85610; 85730; 87040; 93306; 94640; 94760; 96365; 96366; 96375; 99285

== ENCOUNTER 2016-11-20 12:29 | Emergency (ER) | payer MEDICARE ==
--- NOTE | 2016-11-20 12:44 | ED ---
Male Urogenital HPI - General Chief complaint: Urogenital Stated complaint: catheter fell out Time Seen by Provider: 11/20/16 12:29 Source: patient, RN notes reviewed Mode of arrival: ambulatory Limitations: no limitations - History of Present Illness Initial comments: This is a 79-year-old male who apparently has a chronic indwelling Nguyen that was not functioning today a bladder scan was done showing 879 mL a urine Nguyen was pulled out and the patient started having copious amounts of bloody urine. EMS was called to bring him into the hospital. Initially apparently had a somewhat low blood pressure which did respond to fluids. The patient has no pain he is awake alert oriented history he normally has COPD his saturation was only 90. He denies any shortness of breath however at this time. - Related Data Home Medications Medication Instructions Recorded Confirmed Acetaminophen Tab [Tylenol] 650 mg PO Q4H PRN 11/08/16 11/20/16 Allopurinol [Zyloprim] 100 mg PO BID 11/08/16 11/20/16 Amino Acids/Protein Hydrolys 30 ml PO DAILY 11/08/16 11/20/16 [Pro-Stat Supplement] Bisacodyl 10 mg RECTAL DAILY PRN 11/08/16 11/20/16 Cetirizine HCl 10 mg PO DAILY 11/08/16 11/20/16 Fluticasone/Vilanterol [Breo 1 puff INHALATION RT-DAILY 11/08/16 11/20/16 Ellipta 100-25 Mcg Inhaler] Ipratropium-Albuterol Nebulize 3 ml INHALATION RT-Q8H PRN 11/08/16 11/20/16 [Duoneb 0.5 mg-3 mg/3 ml Soln] Levothyroxine Sodium [Synthroid] 137 mcg PO HS 11/08/16 11/20/16 Melatonin 5 mg PO HS 11/08/16 11/20/16 Multivitamins, Thera [Multivitamin 1 tab PO DAILY 11/08/16 11/20/16 (formulary)] Omeprazole 20 mg PO HS 11/08/16 11/20/16 Sennosides/Docusate Sodium 1 tab PO BID 11/08/16 11/20/16 [[place]-Colace Tablet] Tamsulosin [Flomax] 0.4 mg PO HS 11/08/16 11/20/16 Tiotropium 18 Mcg/Puff [Spiriva] 1 cap INHALATION RT-DAILY 11/08/16 11/20/16 Vitamin B Complex 1 cap PO DAILY 11/08/16 11/20/16 Warfarin [Coumadin] 2.5 mg PO MOFR 11/08/16 11/20/16 Warfarin [Coumadin] 5 mg PO SUTUWETHSA 11/08/16 11/20/16 Lactulose [Cephulac] 20 gm PO DAILY PRN 11/20/16 11/20/16 oxyCODONE-APAP 5-325MG [Percocet 1 tab PO Q6HR PRN 11/20/16 11/20/16 5-325 mg] Previous Rx's Medication Instructions Recorded Atorvastatin [Lipitor] 40 mg PO HS tab 11/13/16 Furosemide [Lasix] 40 mg PO BID@0900,1600 tab 11/13/16 Sildenafil [Revatio] 20 mg PO TID tab 11/13/16 Allergies Allergy/AdvReac Type Severity Reaction Status Date / Time No Known Allergies Allergy Verified 11/20/16 13:10 Review of Systems ROS Statement: Those systems with pertinent positive or pertinent negative responses have been documented in the HPI. ROS Other: All systems not noted in ROS Statement are negative. Past Medical History Past Medical History: Atrial Fibrillation, Coronary Artery Disease (CAD), Heart Failure, GERD/Reflux History of Any Multi-Drug Resistant Organisms: None Reported Past Surgical History: Cardiac Valve Replacement, Coronary Bypass/CABG Additional Past Surgical History / Comment(s): tyhyroidectomy, pig valve replacement, bilateral knee replacement, rt femur surgery. Past Anesthesia/Blood Transfusion Reactions: No Reported Reaction Past Psychological History: No Psychological Hx Reported Smoking Status: Former smoker Past Alcohol Use History: Daily Past Drug Use History: None Reported - Past Family History Mother Family Medical History: Cancer General Exam - General Exam Comments Initial Comments: This is a well-developed well-nourished awake alert oriented 3 Limitations: no limitations General appearance: alert, in no apparent distress Head exam: Present: atraumatic, normocephalic, normal inspection Eye exam: Present: normal appearance, PERRL, EOMI. Absent: scleral icterus, conjunctival injection, periorbital swelling ENT exam: Present: normal exam, mucous membranes moist Neck exam: Present: normal inspection. Absent: tenderness, meningismus, lymphadenopathy Respiratory exam: Present: normal lung sounds bilaterally. Absent: respiratory distress, wheezes, rales, rhonchi, stridor Cardiovascular Exam: Present: regular rate, normal rhythm, normal heart sounds. Absent: systolic murmur, diastolic murmur, rubs, gallop, clicks GI/Abdominal exam: Present: soft, normal bowel sounds. Absent: distended, tenderness, guarding, rebound, rigid exam: Present: other (Patient demonstrates a circumcised penis with some clots at the meatus no active bleeding at this time. No tenderness of the genitals. No open wounds.) Extremities exam: Present: normal inspection, full ROM, normal capillary refill. Absent: tenderness, pedal edema, joint swelling, calf tenderness Back exam: Present: normal inspection Neurological exam: Present: alert, oriented X3, CN II-XII intact Psychiatric exam: Present: normal affect, normal mood Skin exam: Present: warm, dry, intact, normal color. Absent: rash Course Vital Signs 11/20/16 11/20/16 11/20/16 12:32 15:33 15:46 Temperature 97.1 F L Pulse Rate 87 90 87 Respiratory 18 22 22 Rate Blood Pressure 112/51 72/43 101/55 O2 Sat by Pulse 99 97 Oximetry - Reevaluation(s) Reevaluation #1: 11/20/16 16:55 The patient did have a episode of hypotension was noted to be dehydrated he did resolve after IV fluids. Reevaluation #2: 11/20/16 16:59 The patient initially had a lot of hematuria on the first catheter placement a triple lumen was attempted without success. Patient seemed to be urinating by himself but then became obstructed again nursing staff was able to get in a 16- Swedish coud tipped catheter. With good urine flow and very minimal bleeding. Patient is so much improved I did discuss the findings with patient has regarding the lab work S discuss this with Dr. Wolfe. [facility] a repeat CBC will be done in 2 days Medical Decision Making - Medical Decision Making Patient will be discharged [facility] to [facility] I did recommend increase oral fluids repeat CBC in 2 days - Lab Data Result diagrams: 11/20/16 12:55 11/20/16 12:55 Lab Results 11/20/16 11/20/16 11/20/16 Range/Units 12:55 12:55 12:55 WBC 12.1 H (3.8-10.6) k/uL RBC 2.51 L (4.30-5.90) m/uL Hgb 8.0 L D (13.0-17.5) gm/dL Hct 26.0 L (39.0-53.0) % MCV 103.8 H D (80.0-100.0) fL MCH 31.7 (25.0-35.0) pg MCHC 30.6 L (31.0-37.0) g/dL RDW 16.0 H (11.5-15.5) % Plt Count 297 (150-450) k/uL Neutrophils % 84 % Lymphocytes % 6 % Monocytes % 6 % Eosinophils % 2 % Basophils % 0 % Neutrophils # 10.1 H (1.3-7.7) k/uL Lymphocytes # 0.7 L (1.0-4.8) k/uL Monocytes # 0.7 (0-1.0) k/uL Eosinophils # 0.3 (0-0.7) k/uL Basophils # 0.0 (0-0.2) k/uL Hypochromasia Slight Macrocytosis Moderate PT 28.4 H (9.0-12.0) sec INR 2.9 (<1.1) APTT 34.6 H (22.0-30.0) sec Sodium 137 (137-145) mmol/L Potassium 3.4 L (3.5-5.1) mmol/L Chloride 97 L (98-107) mmol/L Carbon Dioxide 35 H (22-30) mmol/L Anion Gap 5 mmol/L BUN 25 H (9-20) mg/dL Creatinine 0.84 (0.66-1.25) mg/dL Est GFR (MDRD) Af Amer >60 (>60 ml/min/1.73 sqM) Est GFR (MDRD) Non-Af >60 (>60 ml/min/1.73 sqM) Glucose 113 H (74-99) mg/dL Calcium 8.0 L (8.4-10.2) mg/dL Total Bilirubin 1.4 H (0.2-1.3) mg/dL AST 36 (17-59) U/L ALT 29 (21-72) U/L Alkaline Phosphatase 127 H (38-126) U/L Total Protein 6.3 (6.3-8.2) g/dL Albumin 2.7 L (3.5-5.0) g/dL Disposition Clinical Impression: Nguyen catheter problem, Urinary retention, Hypotensive episode, Dehydration, Anemia Disposition: HOME SELF-CARE Condition: Good Instructions: Urinary Retention in Men (ED), Dehydration (ED), Hypotension (ED)
[2016-11-20 13:14] LABS: Basophils % (A) 0 %; CH 32.8; CHCM 31.7; Eosinophils # (A) 0.3 k/uL (0-0.7); Eosinophils % (A) 2 %; HDW 3.38; Hypochromasia Slight; Luc # (Auto) 0.22; Luc % (Auto) 2; Lymphocytes # (A) 0.7 k/uL (1.0-4.8); Lymphocytes % (A) 6 %; MCH 31.7 pg (25.0-35.0); MCHC 30.6 g/dL (31.0-37.0); Macrocytosis Moderate; Mean Platelet Volume 7.5; Monocytes # (A) 0.7 k/uL (0-1.0); Monocytes % (A) 6 %; Neutrophils # (A) 10.1 k/uL (1.3-7.7); Neutrophils % (A) 84 %; RBC 2.51 m/uL (4.30-5.90); WBC 12.1 k/uL (3.8-10.6); WBC (Perox) 11.67
[2016-11-20 13:16] LABS: ALT 29 U/L (21-72); AST 36 U/L (17-59); Alkaline Phosphatase 127 U/L (38-126); Anion Gap 5 mmol/L; Blood Urea Nitrogen 25 mg/dL (9-20); Carbon Dioxide 35 mmol/L (22-30); Chloride 97 mmol/L (98-107); Glucose 113 mg/dL (74-99); Non-African American GFR(MDRD) >60 (>60 ml/min/1.73 sqM); Potassium 3.4 mmol/L (3.5-5.1); Sodium 137 mmol/L (137-145); Total Bilirubin 1.4 mg/dL (0.2-1.3); Total Protein 6.3 g/dL (6.3-8.2)
[2016-11-20 13:20] LABS: MCV 103.8 fL (80.0-100.0)
[2016-11-20 13:21] LABS: INR 2.9 (<1.1); Partial Thromboplastin Time 34.6 sec (22.0-30.0); Prothrombin Time 28.4 sec (9.0-12.0)
[2016-11-20] MEDS ORDERED: HYDROcodone/APAP 5-325MG 1 EACH TAB PO STA (15:26)
[2016-11-20] MEDS ORDERED: SODIUM CHLORIDE 0.9% 1,000 ML IV ONE (15:41)
[2016-11-20 17:11] VITALS: BP 98/50; PULSE 88; RESP 20; TEMP 97.4
== END 2016-11-20 18:14 | disposition home or self-care (01) ==
LOC: EC 12:29
DX: T83.091A Other mechanical complication of indwelling urethral catheter, initial encounter (principal); R33.9 Retention of urine, unspecified; E86.0 Dehydration; D64.9 Anemia, unspecified; I95.9 Hypotension, unspecified; I48.91 Unspecified atrial fibrillation; I50.9 Heart failure, unspecified; I25.10 Atherosclerotic heart disease of native coronary artery without angina pectoris; K21.9 Gastro-esophageal reflux disease without esophagitis; Z95.1 Presence of aortocoronary bypass graft; Z79.01 Long term (current) use of anticoagulants; Z79.899 Other long term (current) drug therapy; Z87.891 Personal history of nicotine dependence
CPT/HCPCS: 36415; 51702; 80053; 85025; 85610; 85730; 96360; 99284

== ENCOUNTER 2016-11-21 16:31 | Inpatient (IN) | payer MEDICARE ==
[2016-11-21] MEDS ORDERED: SODIUM CHLORIDE 0.9% 1,000 ML IV STA ×2 (16:32→16:35)
[2016-11-21] MEDS ORDERED: ALBUTEROL NEBULIZED 2.5 MG/3 ML INHALATION STA (16:32)
[2016-11-21] MEDS ORDERED: IPRATROPIUM 0.5 MG/2.5 ML NEBU INHALATION STA (16:32)
--- NOTE | 2016-11-21 16:48 | XR ---
EXAMINATION TYPE: XR chest 1V portable DATE OF EXAM: 11/21/2016 4:43 PM COMPARISON: 11/08/2016 HISTORY: Shortness of breath and cough. History of A. fib, cardiovascular disease, and congestive hea rt failure. Previous CABG. TECHNIQUE: Single frontal view of the chest is obtained. FINDINGS: Heart is again enlarged and partially obscured. Pulmonary vascularity is again mildly engo rged. Interstitial prominence remains similar to the prior exam. Postsurgical changes are again demon strated at the chest. There is increasing density within the retrocardiac airspace obscuring the left hemidiaphragm and cos tophrenic angle. There is also blunting of the right costophrenic angle. Obliquely oriented linear op acity along the right heart border may relate to epicardial fat pad or adjacent atelectasis. Pulmonar y hyperinflation is less evident on this examination than on the prior. IMPRESSION: 1. Findings most likely relating to decompensated congestive heart failure with increasing left pleur al effusion and a trace right pleural effusion, mild pulmonary vascular congestion cardiomegaly. 2. Obliquely oriented linear opacity along the right cardiophrenic angle either relates to prominent epicardial fat pad or right middle lobe atelectasis.
[2016-11-21 17:08] LABS: RBC 1.78 m/uL (4.30-5.90); WBC 12.9 k/uL (3.8-10.6); WBC (Perox) 13.1
[2016-11-21 17:09] LABS: CHCM 31.7; HCT 18.6 % (39.0-53.0); HDW 3.76; MCH 32.5 pg (25.0-35.0); MCHC 31.1 g/dL (31.0-37.0); MCV 104.5 fL (80.0-100.0); Macrocytosis Moderate; Mean Platelet Volume 7.7; RDW 16.6 % (11.5-15.5)
[2016-11-21 17:10] LABS: Anisocytosis Slight; Hypochromasia Moderate; INR 3.8 (<1.1); Partial Thromboplastin Time 30.7 sec (22.0-30.0); Poikilocytosis Slight; Prothrombin Time 36.8 sec (9.0-12.0)
[2016-11-21 17:14] LABS: HGB 5.8 gm/dL (13.0-17.5)
[2016-11-21 17:20] LABS: Calcium 7.5 mg/dL (8.4-10.2); Magnesium 1.7 mg/dL (1.6-2.3); Potassium 4.1 mmol/L (3.5-5.1); Total Bilirubin 1.4 mg/dL (0.2-1.3); Total Protein 5.7 g/dL (6.3-8.2)
--- NOTE | 2016-11-21 17:27 | ED ---
General Adult HPI - General Chief complaint: Shortness of Breath Stated complaint: SOB Time Seen by Provider: 11/21/16 16:32 Source: patient, EMS, RN notes reviewed, old records reviewed Mode of arrival: EMS Limitations: no limitations - History of Present Illness Initial comments: This is a 76 male to the ED co severe SOB and hypoxia from ECF after unresponsive period. Patient has extensive history, CHF, COPD, Anemia, Heart Disease, and in significant hypoxia and respiratory distress. Patient has no fever but does have increased cough and congestion. Patient is a poor historian secondary to clnical status, history also obtained from EMS and chart. - Related Data Home Medications Medication Instructions Recorded Confirmed Acetaminophen Tab [Tylenol] 650 mg PO Q4H PRN 11/08/16 11/21/16 Allopurinol [Zyloprim] 100 mg PO BID 11/08/16 11/21/16 Amino Acids/Protein Hydrolys 30 ml PO DAILY 11/08/16 11/21/16 [Pro-Stat Supplement] Bisacodyl 10 mg RECTAL DAILY PRN 11/08/16 11/21/16 Cetirizine HCl 10 mg PO DAILY 11/08/16 11/21/16 Fluticasone/Vilanterol [Breo 2 puff INHALATION RT-DAILY 11/08/16 11/21/16 Ellipta 100-25 Mcg Inhaler] Ipratropium-Albuterol Nebulize 3 ml INHALATION RT-Q8H PRN 11/08/16 11/21/16 [Duoneb 0.5 mg-3 mg/3 ml Soln] Levothyroxine Sodium [Synthroid] 137 mcg PO HS 11/08/16 11/21/16 Melatonin 5 mg PO HS 11/08/16 11/21/16 Multivitamins, Thera [Multivitamin 1 tab PO DAILY 11/08/16 11/21/16 (formulary)] Omeprazole 20 mg PO HS 11/08/16 11/21/16 Sennosides/Docusate Sodium 1 tab PO BID 11/08/16 11/21/16 [[place]-Colace Tablet] Tamsulosin [Flomax] 0.4 mg PO HS 11/08/16 11/21/16 Tiotropium 18 Mcg/Puff [Spiriva] 1 cap INHALATION RT-DAILY 11/08/16 11/21/16 Vitamin B Complex 1 cap PO DAILY 11/08/16 11/21/16 Warfarin [Coumadin] 2.5 mg PO MOFR 11/08/16 11/21/16 Warfarin [Coumadin] 5 mg PO SUTUWETHSA 11/08/16 11/21/16 Lactulose [Cephulac] 20 gm PO DAILY PRN 11/20/16 11/21/16 oxyCODONE-APAP 5-325MG [Percocet 1 tab PO Q6HR PRN 11/20/16 11/21/16 5-325 mg] Cephalexin [Keflex] 500 mg PO Q12HR 11/21/16 11/21/16 Sildenafil [Revatio] 20 mg PO Q8H 11/21/16 11/21/16 Previous Rx's Medication Instructions Recorded Atorvastatin [Lipitor] 40 mg PO HS tab 11/13/16 Furosemide [Lasix] 40 mg PO BID@0900,1600 tab 11/13/16 Allergies Allergy/AdvReac Type Severity Reaction Status Date / Time No Known Allergies Allergy Verified 11/21/16 16:38 Review of Systems ROS Statement: Those systems with pertinent positive or pertinent negative responses have been documented in the HPI. ROS Other: All systems not noted in ROS Statement are negative. Past Medical History Past Medical History: Atrial Fibrillation, Coronary Artery Disease (CAD), Heart Failure, GERD/Reflux History of Any Multi-Drug Resistant Organisms: None Reported Past Surgical History: Cardiac Valve Replacement, Coronary Bypass/CABG Additional Past Surgical History / Comment(s): tyhyroidectomy, pig valve replacement, bilateral knee replacement, rt femur surgery. Past Anesthesia/Blood Transfusion Reactions: No Reported Reaction Past Psychological History: No Psychological Hx Reported Smoking Status: Former smoker Past Alcohol Use History: Daily Past Drug Use History: None Reported - Past Family History Mother Family Medical History: Cancer General Exam - General Exam Comments Initial Comments: pale Limitations: no limitations General appearance: alert, anxious, in distress, obese Head exam: Present: atraumatic, normocephalic, normal inspection Eye exam: Present: normal appearance, PERRL, EOMI. Absent: scleral icterus, conjunctival injection, periorbital swelling ENT exam: Present: normal exam, mucous membranes moist Neck exam: Present: normal inspection. Absent: tenderness, meningismus, lymphadenopathy Respiratory exam: Present: respiratory distress, wheezes, rales, accessory muscle use, decreased breath sounds, prolonged expiratory, other (paradoxical). Absent: rhonchi, stridor Cardiovascular Exam: Present: regular rate, normal rhythm, normal heart sounds. Absent: systolic murmur, diastolic murmur, rubs, gallop, clicks GI/Abdominal exam: Present: soft, normal bowel sounds. Absent: distended, tenderness, guarding, rebound, rigid Extremities exam: Present: normal inspection, full ROM, normal capillary refill. Absent: tenderness, pedal edema, joint swelling, calf tenderness Back exam: Present: normal inspection Neurological exam: Present: alert, oriented X3, CN II-XII intact Psychiatric exam: Present: normal affect, normal mood Skin exam: Present: warm, dry, intact, normal color. Absent: rash Course Vital Signs 11/21/16 11/21/16 11/21/16 16:34 16:52 16:56 Temperature 99.1 F Pulse Rate 93 89 89 Respiratory 27 H 26 H Rate Blood Pressure 77/47 92/53 O2 Sat by Pulse 100 100 Oximetry 11/21/16 17:10 Temperature Pulse Rate 91 Respiratory 30 H Rate Blood Pressure 87/48 O2 Sat by Pulse 100 Oximetry Medical Decision Making - Medical Decision Making 36 year with severe CHF COPD exacerbation resulting hypoxia and respiratory failure on BiPAP, compounded by anemia secondary to blood loss and Coumadin toxicity. Patient be admitted for transfusion reversal of toxicity a continuous breathing treatments, cardiopulmonary resuscitation - Lab Data Result diagrams: 11/21/16 16:45 Lab Results 11/21/16 11/21/16 Range/Units 16:45 16:45 WBC 12.9 H (3.8-10.6) k/uL RBC 1.78 L (4.30-5.90) m/uL Hgb 5.8 L* D (13.0-17.5) gm/dL Hct 18.6 L* (39.0-53.0) % MCV 104.5 H (80.0-100.0) fL MCH 32.5 (25.0-35.0) pg MCHC 31.1 (31.0-37.0) g/dL RDW 16.6 H (11.5-15.5) % Plt Count 327 (150-450) k/uL Hypochromasia Moderate Poikilocytosis Slight Anisocytosis Slight Macrocytosis Moderate PT 36.8 H (9.0-12.0) sec INR 3.8 (<1.1) APTT 30.7 H (22.0-30.0) sec - Radiology Data Radiology results: report reviewed (Chest x-ray is positive for CHF), image reviewed Critical Care Time Critical Care Time: Yes Total Critical Care Time: 31 Disposition Clinical Impression: Congestive heart failure, Acute pulmonary edema, Anemia, CHF exacerbation, Nguyen catheter problem, Hematuria, Coumadin toxicity Disposition: ADMITTED IP TO THIS [facility] Condition: Serious Referrals: Yeni Nazario MD [Primary Care Provider] - 1-2 days
[2016-11-21 17:37] LABS: Troponin I 0.033 ng/mL (0.000-0.034)
[2016-11-21] MEDS ORDERED: methylPREDNISolone SOD SUCCI 125 MG/2 ML VIAL IV STA (18:11)
[2016-11-21 19:30] LABS: Glucose,Whole Blood 136 mg/dL (75-99)
[2016-11-21] MEDS: IPRATROPIUM-ALBUTEROL 3 ML NEB INHALATION SCH (20:06)
[2016-11-21] MEDS ORDERED: SODIUM CHLORIDE 0.9% 1,000 ML IV ONE (20:50)
[2016-11-21] MEDS ORDERED: SODIUM CHLORIDE 0.9% 500 ML IV ONE (20:50)
[2016-11-21] MEDS: PANTOPRAZOLE 40 MG/10 ML VIAL IVP SCH (21:09)
[2016-11-21] MEDS: FUROSEMIDE 10 MG/ML 4 ML VIAL IV SCH (21:38)
[2016-11-21] MEDS ORDERED: MAGNESIUM SULFATE-D5W PMX 1 GM in DEXTROSE/WATER 1 100ML.BAG IVPB ONE (22:00)
[2016-11-22] MEDS: methylPREDNISolone SOD SUCCI 125 MG/2 ML VIAL IV SCH ×2 (00:21→06:11)
[2016-11-22 00:30] LABS: Creatine Kinase MB 2.1 ng/mL (0.0-2.4)
[2016-11-22 00:36] LABS: Troponin I 0.068 ng/mL (0.000-0.034)
[2016-11-22 01:03] LABS: Glucose,Whole Blood 171 mg/dL (75-99)
[2016-11-22 01:03] LABS: Appearance,Urine Turbid (Clear); Bacteria,Urine Few /hpf; Bilirubin,Urine Negative (Negative); Glucose,Urine (UA) Negative (Negative); Ketones,Urine Negative (Negative); Leukocyte Esterase,Urine Large (Negative); Mucus,Urine Rare /hpf; Nitrite,Urine Negative (Negative); PH, Urine 5.5 (5.0-8.0); Particle Count 13001; Protein,Urine 1+ (Negative); RBC,Urine >182 /hpf (0-5); Specific Gravity,Urine 1.015 (1.001-1.035); UA Billing (MACRO vs. MICRO) MICRO; Urobilinogen,Urine <2.0 mg/dL (<2.0); WBC,Urine >182 /hpf (0-5)
[2016-11-22 05:43] LABS: Anisocytosis Slight; Basophils % (A) 0 %; CH 32.2; CHCM 32.2; Eosinophils % (A) 0 %; HCT 23.3 % (39.0-53.0); HDW 4.03; Hypochromasia Moderate; Luc # (Auto) 0.06; Luc % (Auto) 1; Lymphocytes # (A) 0.4 k/uL (1.0-4.8); Lymphocytes % (A) 4 %; MCH 32.1 pg (25.0-35.0); MCHC 31.7 g/dL (31.0-37.0); MCV 101.1 fL (80.0-100.0); Macrocytosis Moderate; Mean Platelet Volume 7.3; Monocytes # (A) 0.2 k/uL (0-1.0); Monocytes % (A) 2 %; Neutrophils # (A) 10.4 k/uL (1.3-7.7); Neutrophils % (A) 94 %; Poikilocytosis Moderate; RDW 17.7 % (11.5-15.5)
[2016-11-22 05:55] LABS: HGB 7.4 gm/dL (13.0-17.5)
[2016-11-22 06:12] LABS: Glucose,Whole Blood 172 mg/dL (75-99)
[2016-11-22 06:27] LABS: Creatine Kinase MB 2.1 ng/mL (0.0-2.4)
[2016-11-22 06:40] LABS: Troponin I 0.089 ng/mL (0.000-0.034)
[2016-11-22 06:49] LABS: Phosphorous 4.5 mg/dL (2.5-4.5); Potassium 3.9 mmol/L (3.5-5.1)
[2016-11-22] MEDS ORDERED: POTASSIUM CHLORIDE ER 10 MEQ TAB.ER.PRT PO STA (07:04)
[2016-11-22] MEDS: IPRATROPIUM-ALBUTEROL 3 ML NEB INHALATION SCH ×4 (07:43→20:53)
--- NOTE | 2016-11-22 07:44 | XR ---
EXAMINATION TYPE: XR chest 1V DATE OF EXAM: 11/22/2016 7:01 AM CLINICAL HISTORY: Difficulty breathing and cough progress study. History of coronary artery disease, CABG, and atrial fibrillation there is TECHNIQUE: Single AP portable upright view of the chest is obtained. COMPARISON: Chest x-ray from one day earlier FINDINGS: Sternal wires and mediastinal clips are present. Cardiomegaly with atherosclerotic thoraci c aorta is present. There is chronic parenchymal change bilaterally with small bilateral pleural effu sions. Suspect old right-sided rib fractures. IMPRESSION: Chronic parenchymal change and cardiomegaly with small bilateral pleural effusions and as sociated bibasilar atelectasis and/or infiltrate all redemonstrated.
[2016-11-22] MEDS ORDERED: MAGNESIUM SULFATE-D5W PMX 1 GM in DEXTROSE/WATER 1 100ML.BAG IVPB ONE (08:00)
[2016-11-22] MEDS: FUROSEMIDE 10 MG/ML 4 ML VIAL IV SCH (08:35)
[2016-11-22] MEDS: PANTOPRAZOLE 40 MG/10 ML VIAL IVP SCH (08:36)
--- NOTE | 2016-11-22 08:42 | P.CRDCN ---
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 He was in [place] recovering from that injury. Apparently was the last several days patient had significant bleeding from his penis. He was brought to the emergency room with complaints of patient not responding. Patient was found to be anemic with hemoglobin of between 7 and 8 g. Patient also had evidence of exacerbation of COPD and possible CHF. Patient was admitted here for blood transfusion and further evaluation. At this point patient is alert and oriented and doesn't appear to be in acute distress. He was wondering why in the hospital. Patient' s INR was about 3.5 on admission. Patient is in atrial fibrillation at this time with controlled and corresponds. Chest x-ray showed some bilateral effusions and infiltrates. His creatinine is in the range of 1.5-1.7. His troponin is mildly elevated but not consistent with acute coronary syndrome. EKGs did not reveal any acute changes. It appears that patient is admitted with severe hypoxemia secondary to exacerbation of COPD and possible concomitant CHF. A urology consult may be considered to evaluate the bleeding from urethra and bladder. Continue current medical therapy. Doesn't need any invasive workup from Cardec standpoint. Echocardiogram done recently showed an ejection fraction of 40-45% with normally functioning prosthetic aortic valve and evidence of severe pulmonary hypertension and severe tricuspid regurgitation. Review of Systems REVIEW OF SYSTEMS: CONSTITUTIONAL:. Patient is doing well. No complaints of fever or chills EYES: Denies diplopia, blurring of vision EARS, NOSE, MOUTH, THROAT: Denies headaches, denies sore throat. CARDIOVASCULAR: Denies chest pain, denies shortness of breath, denies palpitations RESPIRATORY: Denies shortness of breath, denies cough. GASTROINTESTINAL: Denies change in appetite, denies abdominal pain, denies diarrhea GENITOURINARY: History of hematuria MUSKULOSKELETAL: Denies pain, denies swelling. Denies any cramps or claudication INTEGUMENTARY: Denies rash, denies eczema. NEUROLOGICAL: Denies focal weakness, or visual disturbance. Denies any dizziness or syncope PSYCHIATRIC: Denies anxiety, denies depression. HEMATOLOGIC/LYMPHATIC: Denies any bleeding, denies enlarged lymph nodes. 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 History of Any Multi-Drug Resistant Organisms: None Reported Past Surgical History: Cardiac Valve Replacement, Coronary Bypass/CABG, Joint Replacement, Orthopedic Surgery Additional Past Surgical History / Comment(s): CABG, tyhyroidectomy, pig valve replacement (Aortic), bilateral knee replacement, rt femur surgery Procedure on Mitral Valve Past Anesthesia/Blood Transfusion Reactions: No Reported Reaction Past Psychological History: No Psychological Hx Reported Smoking Status: Former smoker Past Alcohol Use History: Daily Past Drug Use History: None Reported - Past Family History Mother Family Medical History: Cancer Medications and Allergies Home Medications Medication Instructions Recorded Confirmed Type Acetaminophen Tab [Tylenol] 650 mg PO Q4H PRN 11/08/16 11/21/16 History Allopurinol [Zyloprim] 100 mg PO BID 11/08/16 11/21/16 History Amino Acids/Protein Hydrolys 30 ml PO DAILY 11/08/16 11/21/16 History [Pro-Stat Supplement] Bisacodyl 10 mg RECTAL DAILY PRN 11/08/16 11/21/16 History Cetirizine HCl 10 mg PO DAILY 11/08/16 11/21/16 History Fluticasone/Vilanterol [Breo 2 puff INHALATION RT-DAILY 11/08/16 11/21/16 History Ellipta 100-25 Mcg Inhaler] Ipratropium-Albuterol Nebulize 3 ml INHALATION RT-Q8H PRN 11/08/16 11/21/16 History [Duoneb 0.5 mg-3 mg/3 ml Soln] Levothyroxine Sodium [Synthroid] 137 mcg PO HS 11/08/16 11/21/16 History Melatonin 5 mg PO HS 11/08/16 11/21/16 History Multivitamins, Thera [Multivitamin 1 tab PO DAILY 11/08/16 11/21/16 History (formulary)] Omeprazole 20 mg PO HS 11/08/16 11/21/16 History Sennosides/Docusate Sodium 1 tab PO BID 11/08/16 11/21/16 History [[place]-Colace Tablet] Tamsulosin [Flomax] 0.4 mg PO HS 11/08/16 11/21/16 History Tiotropium 18 Mcg/Puff [Spiriva] 1 cap INHALATION RT-DAILY 11/08/16 11/21/16 History Vitamin B Complex 1 cap PO DAILY 11/08/16 11/21/16 History Warfarin [Coumadin] 2.5 mg PO MOFR 11/08/16 11/21/16 History Warfarin [Coumadin] 5 mg PO SUTUWETHSA 11/08/16 11/21/16 History Lactulose [Cephulac] 20 gm PO DAILY PRN 11/20/16 11/21/16 History oxyCODONE-APAP 5-325MG [Percocet 1 tab PO Q6HR PRN 11/20/16 11/21/16 History 5-325 mg] Cephalexin [Keflex] 500 mg PO Q12HR 11/21/16 11/21/16 History Sildenafil [Revatio] 20 mg PO Q8H 11/21/16 11/21/16 History Allergies Allergy/AdvReac Type Severity Reaction Status Date / Time No Known Allergies Allergy Verified 11/21/16 16:38 Physical Exam Vitals: Vital Signs Temp Pulse Pulse Resp BP BP Pulse Ox 11/22/16 08:27 98 11/22/16 08:06 84 11/22/16 07:43 80 11/22/16 07:00 83 11 L 101/52 99 11/22/16 06:30 85 15 107/58 99 11/22/16 06:00 89 28 H 98 11/22/16 05:30 81 16 100/51 98 11/22/16 05:00 82 12 97/48 98 11/22/16 04:30 78 13 86/50 99 11/22/16 04:00 98.5 F 77 81 16 90/50 98 11/22/16 03:30 70 14 90/50 98 11/22/16 03:00 75 13 95/52 99 11/22/16 02:30 75 13 85/49 98 11/22/16 02:00 72 13 82/45 99 11/22/16 01:30 98.3 F 77 13 83/46 99 11/22/16 01:09 98.3 F 75 14 85/47 11/22/16 01:00 77 29 H 85/47 99 11/22/16 00:56 98.6 F 72 14 80/46 99 11/22/16 00:55 76 12 80/46 99 11/22/16 00:45 75 13 80/46 99 11/22/16 00:30 98.6 F 75 14 80/40 99 11/22/16 00:15 80 29 H 80/51 99 11/22/16 00:00 81 12 79/42 99 11/21/16 23:45 83 12 94/48 99 11/21/16 23:30 79 13 88/42 99 11/21/16 23:16 77 16 96/43 99 11/21/16 23:15 77 16 96/43 99 11/21/16 23:00 78 15 86/51 98 11/21/16 22:45 79 16 84/47 98 11/21/16 22:30 85 16 80/44 99 11/21/16 22:15 80 16 86/46 98 11/21/16 22:00 81 13 80/44 99 11/21/16 21:45 98.7 F 81 13 86/43 99 11/21/16 21:30 82 95/43 100 11/21/16 21:27 98.7 F 90 20 95/43 100 11/21/16 21:15 87 90/42 100 11/21/16 21:00 81 78/42 99 11/21/16 20:45 92 86/42 100 11/21/16 20:30 86 83/46 95 11/21/16 20:29 90 11/21/16 20:15 84 86/48 100 11/21/16 20:06 86 11/21/16 20:00 85 100 11/21/16 19:45 96 93/44 98 11/21/16 19:30 98.5 F 78 22 83/46 100 11/21/16 19:02 98.2 F 87 20 101/50 100 11/21/16 18:44 98.5 F 88 22 83/46 94 L 11/21/16 18:21 88 30 H 80/45 100 Intake and Output 11/21/16 11/22/16 11/22/16 22:59 06:59 14:59 Intake Total 0 2822 50 Output Total 65 277 32 Balance -65 5449 18 Intake: Intake, IV Titration 1950 50 Amount Magnesium Sulfate-D5w Pmx 100 1 gm In Dextrose/Water 1 100ml.bag @ 100 mls/hr IVPB ONCE ONE Rx#: [id number] Sodium Chloride 0.9% 1, 350 50 000 ml @ 50 mls/hr IV . Q20H STA Rx#:[id number] Sodium Chloride 0.9% 1, 1000 000 ml @ 999 mls/hr IV . Q1H1M ONE Rx#:[id number] Sodium Chloride 0.9% 500 500 ml @ 999 mls/hr IV .Q31M ONE Rx#:[id number] Blood Product 0 872 Rc Pheresis As-3 Unit 0 [id number] Rc Pheresis As-3 Unit 0 281 [id number] Output: Urine 65 277 32 Other: Voiding Method Indwelling Catheter Indwelling Catheter Weight 103.4 kg 105.4 kg GENERAL EXAM: Patient is alert and oriented and doesn't appear to be in any acute distress HEENT: Normocephalic. Normal reaction of pupils, equal size, normal range of extraocular motion. No erythema or exudates in the throat. NECK: No masses, no nuchal rigidity. CHEST: No chest wall deformity. LUNGS: Diminished air exchange HEART: Distant heart sounds and irregular heart rhythm ABDOMEN: No hepatosplenomegaly, normal bowel sounds, no guarding or rigidity. SKIN: No rashes CENTRAL NERVOUS SYSTEM: No focal deficits. EXTREMITIES: No cyanosis, clubbing or edema. Results 11/22/16 05:23 11/22/16 05:23 Cardiac Enzymes 11/21/16 11/22/16 Range/Units 23:39 05:23 CK-MB (CK-2) 2.1 2.1 (0.0-2.4) ng/mL Troponin I 0.068 H* 0.089 H* (0.000-0.034) ng/mL CBC 11/22/16 Range/Units 05:23 WBC 11.0 H (3.8-10.6) k/uL RBC 2.30 L (4.30-5.90) m/uL Hgb 7.4 L D (13.0-17.5) gm/dL Hct 23.3 L (39.0-53.0) % Plt Count 245 (150-450) k/uL Comprehensive Metabolic Panel 11/22/16 Range/Units 05:23 Sodium 135 L (137-145) mmol/L Potassium 3.9 (3.5-5.1) mmol/L Chloride 102 (98-107) mmol/L Carbon Dioxide 27 (22-30) mmol/L BUN 35 H (9-20) mg/dL Creatinine 1.55 H (0.66-1.25) mg/dL Glucose 155 H (74-99) mg/dL Calcium 7.0 L (8.4-10.2) mg/dL Current Medications Generic Name Dose Route Start Last Admin Trade Name Freq PRN Reason Stop Dose Admin Albuterol/Ipratropium 3 ml 11/21/16 20:00 11/22/16 07:43 Duoneb 0.5 Mg-3 Mg/3 Ml Soln INHALATION 3 ml RT-QID DAVID Administration Furosemide 40 mg 11/21/16 19:30 11/21/16 21:38 Lasix IV Not Given Q12HR DAVID Sodium Chloride 1,000 mls @ 50 mls/hr 11/21/16 16:32 11/21/16 16:39 Saline 0.9% IV 11/22/16 12:31 50 mls/hr .Q20H STA Administration Magnesium Sulfate/Dextrose 1 100 mls @ 100 mls/hr 11/22/16 08:00 gm/ IV Solution IVPB 11/22/16 08:59 ONCE ONE Methylprednisolone Sodium Succinate 60 mg 11/22/16 00:00 11/22/16 06:11 Solu-Medrol IV 60 mg Q6HR DAVID Administration Pantoprazole Sodium 40 mg 11/21/16 21:00 11/21/16 21:09 Protonix IVP 40 mg DAILY DAVID Administration Intake and Output 11/21/16 11/22/16 11/22/16 22:59 06:59 14:59 Intake Total 0 2822 50 Output Total 65 277 32 Balance -65 2545 18 Intake: Intake, IV Titration 1950 50 Amount Magnesium Sulfate-D5w Pmx 100 1 gm In Dextrose/Water 1 100ml.bag @ 100 mls/hr IVPB ONCE ONE Rx#: [id number] Sodium Chloride 0.9% 1, 350 50 000 ml @ 50 mls/hr IV . Q20H STA Rx#:[id number] Sodium Chloride 0.9% 1, 1000 000 ml @ 999 mls/hr IV . Q1H1M ONE Rx#:[id number] Sodium Chloride 0.9% 500 500 ml @ 999 mls/hr IV .Q31M ONE Rx#:[id number] Blood Product 0 872 Rc Pheresis As-3 Unit 0 [id number] Rc Pheresis As-3 Unit 0 281 [id number] Output: Urine 65 277 32 Other: Voiding Method Indwelling Catheter Indwelling Catheter Weight 103.4 kg 105.4 kg 11/22/16 05:23 11/22/16 05:23 EKG Interpretations (text) Atrial fibrillation Assessment and Plan (1) COPD exacerbation Status: Acute (2) Anemia Status: Acute (3) Hematuria Status: Acute (4) Chronic combined systolic (congestive) and diastolic (congestive) heart failure Status: Acute (5) Chronic atrial fibrillation Status: Acute (6) Valvular heart disease Status: Acute Plan: I would recommend urology consult for evaluation of the bleeding. We'll follow the PT/INR and resume anticoagulation when INR is therapeutic. Continue the rest of the medication including diuretics. Further recommendations to follow
[2016-11-22 08:47] LABS: INR 3.4 (<1.1); Prothrombin Time 32.7 sec (9.0-12.0)
[2016-11-22] MEDS ORDERED: IPRATROPIUM-ALBUTEROL 3 ML NEB INHALATION PRN (11:11)
[2016-11-22] MEDS ORDERED: LACTULOSE 20 GM/30 ML CUP PO PRN (11:11)
[2016-11-22] MEDS: LEVOTHYROXINE 137 MCG TAB PO SCH (11:35)
[2016-11-22] MEDS: SILDENAFIL 20 MG TAB PO SCH ×2 (11:36→20:28)
[2016-11-22 11:48] LABS: Glucose,Whole Blood 155 mg/dL (75-99)
--- NOTE | 2016-11-22 12:05 | P.HPIM ---
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 For the past couple of days it was noted that the patient was having decrease urine output at the group home and the Nguyen catheter was flushed with no improvement in the urine output. He was spent exchange the Nguyen catheter and unfortunately he seems a was a traumatic Nguyen insertion. Patient was having significant bleeding in and around the Nguyen catheter he was noted to be slightly lethargic and was sent to the emergency room for further evaluation. On presentation hemoglobin of 5.8. Patient was admitted to the intensive care unit. He was also noted to be hypoxic with O2 sat duration of 85 %. He is usually wearing 2 L of oxygen via nasal cannula. His medical history is noted below. Today when I saw him, patient is awake and alert. He does not have any specific complaints. He denies any shortness of breath. He is concerned that his urine is still bloody. Family bedside. Review of Systems Review of system: 14 points review of systems were obtained and were negative except to what were mentioned in the HPI. 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 History of Any Multi-Drug Resistant Organisms: None Reported Past Surgical History: Cardiac Valve Replacement, Coronary Bypass/CABG, Joint Replacement, Orthopedic Surgery Additional Past Surgical History / Comment(s): CABG, tyhyroidectomy, pig valve replacement (Aortic), bilateral knee replacement, rt femur surgery Procedure on Mitral Valve Past Anesthesia/Blood Transfusion Reactions: No Reported Reaction Past Psychological History: No Psychological Hx Reported Smoking Status: Former smoker Past Alcohol Use History: Daily Past Drug Use History: None Reported - Past Family History Mother Family Medical History: Cancer Medications and Allergies Home Medications Medication Instructions Recorded Confirmed Type Acetaminophen Tab [Tylenol] 650 mg PO Q4H PRN 11/08/16 11/21/16 History Allopurinol [Zyloprim] 100 mg PO BID 11/08/16 11/21/16 History Amino Acids/Protein Hydrolys 30 ml PO DAILY 11/08/16 11/21/16 History [Pro-Stat Supplement] Bisacodyl 10 mg RECTAL DAILY PRN 11/08/16 11/21/16 History Cetirizine HCl 10 mg PO DAILY 11/08/16 11/21/16 History Fluticasone/Vilanterol [Breo 2 puff INHALATION RT-DAILY 11/08/16 11/21/16 History Ellipta 100-25 Mcg Inhaler] Ipratropium-Albuterol Nebulize 3 ml INHALATION RT-Q8H PRN 11/08/16 11/21/16 History [Duoneb 0.5 mg-3 mg/3 ml Soln] Levothyroxine Sodium [Synthroid] 137 mcg PO HS 11/08/16 11/21/16 History Melatonin 5 mg PO HS 11/08/16 11/21/16 History Multivitamins, Thera [Multivitamin 1 tab PO DAILY 11/08/16 11/21/16 History (formulary)] Omeprazole 20 mg PO HS 11/08/16 11/21/16 History Sennosides/Docusate Sodium 1 tab PO BID 11/08/16 11/21/16 History [[place]-Colace Tablet] Tamsulosin [Flomax] 0.4 mg PO HS 11/08/16 11/21/16 History Tiotropium 18 Mcg/Puff [Spiriva] 1 cap INHALATION RT-DAILY 11/08/16 11/21/16 History Vitamin B Complex 1 cap PO DAILY 11/08/16 11/21/16 History Warfarin [Coumadin] 2.5 mg PO MOFR 11/08/16 11/21/16 History Warfarin [Coumadin] 5 mg PO SUTUWETHSA 11/08/16 11/21/16 History Lactulose [Cephulac] 20 gm PO DAILY PRN 11/20/16 11/21/16 History oxyCODONE-APAP 5-325MG [Percocet 1 tab PO Q6HR PRN 11/20/16 11/21/16 History 5-325 mg] Cephalexin [Keflex] 500 mg PO Q12HR 11/21/16 11/21/16 History Sildenafil [Revatio] 20 mg PO Q8H 11/21/16 11/21/16 History Allergies Allergy/AdvReac Type Severity Reaction Status Date / Time No Known Allergies Allergy Verified 11/21/16 16:38 Physical Exam Vitals: Vital Signs Temp Pulse Pulse Resp BP BP Pulse Ox 11/22/16 11:36 84 11/22/16 11:26 82 11/22/16 11:00 84 23 96/57 99 11/22/16 10:00 83 17 96/54 98 11/22/16 09:00 86 13 115/52 99 11/22/16 08:27 98 11/22/16 08:06 84 11/22/16 08:00 98.3 F 80 21 95/50 100 11/22/16 07:43 80 11/22/16 07:00 83 11 L 101/52 99 11/22/16 06:30 85 15 107/58 99 11/22/16 06:00 89 28 H 98 11/22/16 05:30 81 16 100/51 98 11/22/16 05:00 82 12 97/48 98 11/22/16 04:30 78 13 86/50 99 11/22/16 04:00 98.5 F 77 81 16 90/50 98 11/22/16 03:30 70 14 90/50 98 11/22/16 03:00 75 13 95/52 99 11/22/16 02:30 75 13 85/49 98 11/22/16 02:00 72 13 82/45 99 11/22/16 01:30 98.3 F 77 13 83/46 99 11/22/16 01:09 98.3 F 75 14 85/47 11/22/16 01:00 77 29 H 85/47 99 11/22/16 00:56 98.6 F 72 14 80/46 99 11/22/16 00:55 76 12 80/46 99 11/22/16 00:45 75 13 80/46 99 11/22/16 00:30 98.6 F 75 14 80/40 99 11/22/16 00:15 80 29 H 80/51 99 11/22/16 00:00 81 12 79/42 99 11/21/16 23:45 83 12 94/48 99 11/21/16 23:30 79 13 88/42 99 11/21/16 23:16 77 16 96/43 99 11/21/16 23:15 77 16 96/43 99 11/21/16 23:00 78 15 86/51 98 11/21/16 22:45 79 16 84/47 98 11/21/16 22:30 85 16 80/44 99 11/21/16 22:15 80 16 86/46 98 11/21/16 22:00 81 13 80/44 99 11/21/16 21:45 98.7 F 81 13 86/43 99 11/21/16 21:30 82 95/43 100 11/21/16 21:27 98.7 F 90 20 95/43 100 11/21/16 21:15 87 90/42 100 11/21/16 21:00 81 78/42 99 11/21/16 20:45 92 86/42 100 11/21/16 20:30 86 83/46 95 11/21/16 20:29 90 11/21/16 20:15 84 86/48 100 11/21/16 20:06 86 11/21/16 20:00 85 100 11/21/16 19:45 96 93/44 98 11/21/16 19:30 98.5 F 78 22 83/46 100 11/21/16 19:02 98.2 F 87 20 101/50 100 11/21/16 18:44 98.5 F 88 22 83/46 94 L 11/21/16 18:21 88 30 H 80/45 100 Intake and Output 11/21/16 11/22/16 11/22/16 22:59 06:59 14:59 Intake Total 0 2822 410 Output Total 65 277 182 Balance -65 2545 228 Intake: Intake, IV Titration 1950 350 Amount Magnesium Sulfate-D5w Pmx 100 1 gm In Dextrose/Water 1 100ml.bag @ 100 mls/hr IVPB ONCE ONE Rx#: [id number] Magnesium Sulfate-D5w Pmx 200 1 gm In Dextrose/Water 1 100ml.bag @ 100 mls/hr IVPB ONCE ONE Rx#: [id number] Sodium Chloride 0.9% 1, 350 150 000 ml @ 50 mls/hr IV . Q20H STA Rx#:[id number] Sodium Chloride 0.9% 1, 1000 000 ml @ 999 mls/hr IV . Q1H1M ONE Rx#:[id number] Sodium Chloride 0.9% 500 500 ml @ 999 mls/hr IV .Q31M ONE Rx#:[id number] Oral 60 Blood Product 0 872 Rc Pheresis As-3 Unit 0 [id number] Rc Pheresis As-3 Unit 0 281 [id number] Output: Urine 65 277 182 Other: Voiding Method Indwelling Catheter Indwelling Catheter Indwelling Catheter Weight 103.4 kg 105.4 kg General: The patient is awake and alert, in no distress Eye: there is normal conjunctiva bilaterally. Neck: The neck is supple, there is no JVD. Cardiovascular: Normal S1-S2, no S3-S4, no murmurs. Respiratory: Lungs clear to auscultation bilaterally Gastrointestinal: Abdomen is soft, nontender Musculoskeletal: There is no pedal edema. Neurological:. Speech is normal. Skin: Skin is warm and very dry Results CBC & Chem 7: 11/22/16 05:23 11/22/16 05:23 Labs: Abnormal Lab Results - Last 24 Hours (Table) 11/21/16 11/21/16 11/21/16 Range/Units 19:28 23:39 23:50 WBC (3.8-10.6) k/uL RBC (4.30-5.90) m/uL Hgb (13.0-17.5) gm/dL Hct (39.0-53.0) % MCV (80.0-100.0) fL RDW (11.5-15.5) % Neutrophils # (1.3-7.7) k/uL Lymphocytes # (1.0-4.8) k/uL PT (9.0-12.0) sec Sodium (137-145) mmol/L BUN (9-20) mg/dL Creatinine (0.66-1.25) mg/dL Glucose (74-99) mg/dL POC Glucose (mg/dL) 136 H (75-99) mg/dL Calcium (8.4-10.2) mg/dL Troponin I 0.068 H* (0.000-0.034) ng/mL Urine Protein 1+ H (Negative) Urine Blood Large H (Negative) Ur Leukocyte Esterase Large H (Negative) Urine RBC >182 H (0-5) /hpf Urine WBC >182 H (0-5) /hpf Urine WBC Clumps Many H (None) /hpf Urine Bacteria Few H (None) /hpf Hyaline Casts 77 H (0-2) /lpf Urine Mucus Rare H (None) /hpf 11/22/16 11/22/16 11/22/16 Range/Units 01:00 05:23 05:23 WBC 11.0 H (3.8-10.6) k/uL RBC 2.30 L (4.30-5.90) m/uL Hgb 7.4 L D (13.0-17.5) gm/dL Hct 23.3 L (39.0-53.0) % MCV 101.1 H (80.0-100.0) fL RDW 17.7 H (11.5-15.5) % Neutrophils # 10.4 H (1.3-7.7) k/uL Lymphocytes # 0.4 L (1.0-4.8) k/uL PT (9.0-12.0) sec Sodium 135 L (137-145) mmol/L BUN 35 H (9-20) mg/dL Creatinine 1.55 H (0.66-1.25) mg/dL Glucose 155 H (74-99) mg/dL POC Glucose (mg/dL) 171 H (75-99) mg/dL Calcium 7.0 L (8.4-10.2) mg/dL Troponin I (0.000-0.034) ng/mL Urine Protein (Negative) Urine Blood (Negative) Ur Leukocyte Esterase (Negative) Urine RBC (0-5) /hpf Urine WBC (0-5) /hpf Urine WBC Clumps (None) /hpf Urine Bacteria (None) /hpf Hyaline Casts (0-2) /lpf Urine Mucus (None) /hpf 11/22/16 11/22/16 11/22/16 Range/Units 05:23 05:23 06:09 WBC (3.8-10.6) k/uL RBC (4.30-5.90) m/uL Hgb (13.0-17.5) gm/dL Hct (39.0-53.0) % MCV (80.0-100.0) fL RDW (11.5-15.5) % Neutrophils # (1.3-7.7) k/uL Lymphocytes # (1.0-4.8) k/uL PT 32.7 H (9.0-12.0) sec Sodium (137-145) mmol/L BUN (9-20) mg/dL Creatinine (0.66-1.25) mg/dL Glucose (74-99) mg/dL POC Glucose (mg/dL) 172 H (75-99) mg/dL Calcium (8.4-10.2) mg/dL Troponin I 0.089 H* (0.000-0.034) ng/mL Urine Protein (Negative) Urine Blood (Negative) Ur Leukocyte Esterase (Negative) Urine RBC (0-5) /hpf Urine WBC (0-5) /hpf Urine WBC Clumps (None) /hpf Urine Bacteria (None) /hpf Hyaline Casts (0-2) /lpf Urine Mucus (None) /hpf 11/22/16 Range/Units 11:47 WBC (3.8-10.6) k/uL RBC (4.30-5.90) m/uL Hgb (13.0-17.5) gm/dL Hct (39.0-53.0) % MCV (80.0-100.0) fL RDW (11.5-15.5) % Neutrophils # (1.3-7.7) k/uL Lymphocytes # (1.0-4.8) k/uL PT (9.0-12.0) sec Sodium (137-145) mmol/L BUN (9-20) mg/dL Creatinine (0.66-1.25) mg/dL Glucose (74-99) mg/dL POC Glucose (mg/dL) 155 H (75-99) mg/dL Calcium (8.4-10.2) mg/dL Troponin I (0.000-0.034) ng/mL Urine Protein (Negative) Urine Blood (Negative) Ur Leukocyte Esterase (Negative) Urine RBC (0-5) /hpf Urine WBC (0-5) /hpf Urine WBC Clumps (None) /hpf Urine Bacteria (None) /hpf Hyaline Casts (0-2) /lpf Urine Mucus (None) /hpf Thrombosis Risk Factor Assmnt - Choose All That Apply Each Factor Represents 1 point: Abnormal pulmonary function (COPD), Medical pt on bed rest, Obesity (BMI >25), Swollen legs (current) Each Risk Factor Represents 3 Points: Age 75 years or older Each Risk Factor Represents 5 Points: Hip, pelvis, or leg fracture (< 1 month) Thrombosis Risk Factor Assessment Total Risk Factor Score: 12 Thrombosis Risk Factor Assessment Level: High Risk Assessment and Plan Plan: 1. Gross hematuria, most likely secondary to traumatic Nguyen insertion. Urology consulted for further evaluation. 2. Acute blood loss anemia status post 2 units of PRBC transfusion. We will monitor hemoglobin daily. 3. Acute on chronic hypoxic respiratory failure now back to baseline oxygen 2 L 4. Severe pulmonary hypertension with cor pulmonale on Lasix and sildenafil as an outpatient 5. Systolic heart failure with estimated ejection fraction of 45%: Now compensated with no exacerbation 6. Chronic venous insufficiency with venous insufficiency eczematous changes and dry skin: Currently finishing oral Keflex treatment for recent cellulitis 7. Paroxysmal atrial fibrillation on anticoagulation with Coumadin currently on hold for elevated INR 8. Underlying COPD with no evidence of exacerbation 9. Status post recent intramedullary hip screw fixation of the right hip approximately 2 months ago in [place] Today, I discussed with the patient and his his current clinical condition. Awaiting urology evaluation. Discontinue IV Lasix and monitor blood pressure closely. Repeat CBC in the morning. I discussed also plan of care with Dr. Ku. All patient's questions answered to his satisfaction. Patient may be transferred outside of the intensive care unit toward the evening his blood pressure remained stable.
[2016-11-22] MEDS: AMMONIUM LACTATE 12% LOTION 225 GM BTL TOPICAL SCH (14:00)
--- NOTE | 2016-11-22 15:26 | US ---
EXAMINATION TYPE: US kidneys/renal and bladder DATE OF EXAM: 11/22/2016 12:48 PM COMPARISON: NONE CLINICAL HISTORY: VALENTIN. VALENTIN, exam done portable in ICU EXAM MEASUREMENTS: Right Kidney: 9.0 x 5.0 x 3.8 cm Left Kidney: n/a Right Kidney: no hydronephrosis or masses seen, visualization limited by rib shadowing and overlying bowel gas Left Kidney: obscured by overlying bowel gas Bladder: not fully distended, morton catheter There is no evidence for hydronephrosis at this point in time in visualized right kidney. No nephrol ithiasis is seen. No masses are identified in right kidney on images saved. Exam is suboptimal secondary to portable technique and patient's body habitus. Cortical thinning in r ight kidney is present. Bladder is suboptimally evaluated due to poor distention with Morton catheter in place. IMPRESSION: Suboptimal study, no hydronephrosis in right kidney. Left kidney is not visualized.
[2016-11-22 16:54] LABS: Glucose,Whole Blood 174 mg/dL (75-99)
--- NOTE | 2016-11-22 16:54 | P.CNPUL ---
History of Present Illness Consult date: 11/22/16 Chief complaint: Diminished level consciousness History of present illness: 76-year-old male patient, came in today emergency department from the [facility] because of diminished level of consciousness and bleeding from the penis. The patient apparently was having diminished level of consciousness and diminished urine output over the past few days and this was noted at the [facility]. The Nguyen catheter was flushed without any improvement in the urine output. Note that the patient has had a Nguyen catheter for long period of time and this was placed in for complete case of obstructive uropathy. At one point used to self catheterize himself. He is also status post right hip ORIF following a fall that occurred during a recent cruise. The patient had his surgery done in [place] and following that he was transferred to [facility] and [place] where he was further recuperating. My understanding is that the patient was having his Nguyen catheter being replaced the [facility] and this was a traumatic Nguyen catheter insertion and he subsequently got complicated by obstruction probably later to clots. The patient came into the intensive care unit yesterday. The patient was found to have a hemoglobin of 5.8. The patient was given a total of 2 units of packed RBCs. The patient was also given 3.5 L of IV fluids. The Nguyen catheter was reflux. The patient was also supported with a BiPAP at a pressure of 12 over 5 cm of water and started this morning was taken off the BiPAP and he was placed on 2 L of oxygen by nasal cannula. He is calm and comfortable. Denies having any chest pain. No cough or sputum production. No chest pain. Over the past 24 hours the patient's mentation improved considerably to the point where he is completely back to his normal. He is moving all 4 extremities without any abnormalities. He was in acute kidney injury in the creatinine was at 1.7 and the patient started making good urine output. PT INR is supratherapeutic with an INR of 3.4. The rest of the electrodes are all within normal limits. Troponin is at 0.08 max Review of Systems A 12 point review of system was done. Positive findings are almost above in history of present illness. No cough. No sputum production. No chest pain. No focal neurological deficits. No diarrhea. No nausea. No vomiting. No falls. Skin is intact and the surgical wound site is healing nicely. He has chronic stasis ulceration of the lower extremities bilaterally. He was diuresed extensively in the past and he has no major fluid the condition his lower extremities. Few areas of stage I ulceration on his legs. 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, severe pulmonary hypertension with a PA pressure of 84 with preserved LV function/right-sided heart failure, degenerative arthritis , hypothyroidism, hyperuricemia/gout, hyperlipidemia History of Any Multi-Drug Resistant Organisms: None Reported Past Surgical History: Cardiac Valve Replacement, Coronary Bypass/CABG, Joint Replacement, Orthopedic Surgery Additional Past Surgical History / Comment(s): CABG, tyhyroidectomy, pig valve replacement (Aortic), bilateral knee replacement, rt femur surgery Procedure on Mitral Valve Past Anesthesia/Blood Transfusion Reactions: No Reported Reaction Past Psychological History: No Psychological Hx Reported Smoking Status: Former smoker Past Alcohol Use History: Daily Past Drug Use History: None Reported - Past Family History Mother Family Medical History: Cancer Medications and Allergies Home Medications Medication Instructions Recorded Confirmed Type Acetaminophen Tab [Tylenol] 650 mg PO Q4H PRN 11/08/16 11/21/16 History Allopurinol [Zyloprim] 100 mg PO BID 11/08/16 11/21/16 History Amino Acids/Protein Hydrolys 30 ml PO DAILY 11/08/16 11/21/16 History [Pro-Stat Supplement] Bisacodyl 10 mg RECTAL DAILY PRN 11/08/16 11/21/16 History Cetirizine HCl 10 mg PO DAILY 11/08/16 11/21/16 History Fluticasone/Vilanterol [Breo 2 puff INHALATION RT-DAILY 11/08/16 11/21/16 History Ellipta 100-25 Mcg Inhaler] Ipratropium-Albuterol Nebulize 3 ml INHALATION RT-Q8H PRN 11/08/16 11/21/16 History [Duoneb 0.5 mg-3 mg/3 ml Soln] Levothyroxine Sodium [Synthroid] 137 mcg PO HS 11/08/16 11/21/16 History Melatonin 5 mg PO HS 11/08/16 11/21/16 History Multivitamins, Thera [Multivitamin 1 tab PO DAILY 11/08/16 11/21/16 History (formulary)] Omeprazole 20 mg PO HS 11/08/16 11/21/16 History Sennosides/Docusate Sodium 1 tab PO BID 11/08/16 11/21/16 History [[place]-Colace Tablet] Tamsulosin [Flomax] 0.4 mg PO HS 11/08/16 11/21/16 History Tiotropium 18 Mcg/Puff [Spiriva] 1 cap INHALATION RT-DAILY 11/08/16 11/21/16 History Vitamin B Complex 1 cap PO DAILY 11/08/16 11/21/16 History Warfarin [Coumadin] 2.5 mg PO MOFR 11/08/16 11/21/16 History Warfarin [Coumadin] 5 mg PO SUTUWETHSA 11/08/16 11/21/16 History Lactulose [Cephulac] 20 gm PO DAILY PRN 11/20/16 11/21/16 History oxyCODONE-APAP 5-325MG [Percocet 1 tab PO Q6HR PRN 11/20/16 11/21/16 History 5-325 mg] Cephalexin [Keflex] 500 mg PO Q12HR 11/21/16 11/21/16 History Sildenafil [Revatio] 20 mg PO Q8H 11/21/16 11/21/16 History Allergies Allergy/AdvReac Type Severity Reaction Status Date / Time No Known Allergies Allergy Verified 11/21/16 16:38 Physical Exam Vitals: Vital Signs Temp Pulse Pulse Resp BP BP Pulse Ox 11/22/16 16:20 83 11/22/16 15:51 82 11/22/16 11:36 84 11/22/16 11:26 82 11/22/16 11:00 84 23 96/57 99 11/22/16 10:00 83 17 96/54 98 11/22/16 09:00 86 13 115/52 99 11/22/16 08:27 98 11/22/16 08:06 84 11/22/16 08:00 98.3 F 80 21 95/50 100 11/22/16 07:43 80 11/22/16 07:00 83 11 L 101/52 99 11/22/16 06:30 85 15 107/58 99 11/22/16 06:00 89 28 H 98 11/22/16 05:30 81 16 100/51 98 11/22/16 05:00 82 12 97/48 98 11/22/16 04:30 78 13 86/50 99 11/22/16 04:00 98.5 F 77 81 16 90/50 98 11/22/16 03:30 70 14 90/50 98 11/22/16 03:00 75 13 95/52 99 11/22/16 02:30 75 13 85/49 98 11/22/16 02:00 72 13 82/45 99 11/22/16 01:30 98.3 F 77 13 83/46 99 11/22/16 01:09 98.3 F 75 14 85/47 11/22/16 01:00 77 29 H 85/47 99 11/22/16 00:56 98.6 F 72 14 80/46 99 11/22/16 00:55 76 12 80/46 99 11/22/16 00:45 75 13 80/46 99 11/22/16 00:30 98.6 F 75 14 80/40 99 11/22/16 00:15 80 29 H 80/51 99 11/22/16 00:00 81 12 79/42 99 11/21/16 23:45 83 12 94/48 99 11/21/16 23:30 79 13 88/42 99 11/21/16 23:16 77 16 96/43 99 11/21/16 23:15 77 16 96/43 99 11/21/16 23:00 78 15 86/51 98 11/21/16 22:45 79 16 84/47 98 11/21/16 22:30 85 16 80/44 99 11/21/16 22:15 80 16 86/46 98 11/21/16 22:00 81 13 80/44 99 11/21/16 21:45 98.7 F 81 13 86/43 99 11/21/16 21:30 82 95/43 100 11/21/16 21:27 98.7 F 90 20 95/43 100 11/21/16 21:15 87 90/42 100 11/21/16 21:00 81 78/42 99 11/21/16 20:45 92 86/42 100 11/21/16 20:30 86 83/46 95 11/21/16 20:29 90 11/21/16 20:15 84 86/48 100 11/21/16 20:06 86 11/21/16 20:00 85 100 11/21/16 19:45 96 93/44 98 11/21/16 19:30 98.5 F 78 22 83/46 100 11/21/16 19:02 98.2 F 87 20 101/50 100 11/21/16 18:44 98.5 F 88 22 83/46 94 L 11/21/16 18:21 88 30 H 80/45 100 Intake and Output 11/22/16 11/22/16 11/22/16 06:59 14:59 22:59 Intake Total 2822 560 100 Output Total 277 277 65 Balance 2545 283 35 Intake: Intake, IV Titration 1950 500 100 Amount Magnesium Sulfate-D5w Pmx 100 1 gm In Dextrose/Water 1 100ml.bag @ 100 mls/hr IVPB ONCE ONE Rx#: [id number] Magnesium Sulfate-D5w Pmx 200 1 gm In Dextrose/Water 1 100ml.bag @ 100 mls/hr IVPB ONCE ONE Rx#: [id number] Sodium Chloride 0.9% 1, 350 300 100 000 ml @ 50 mls/hr IV . Q20H STA Rx#:[id number] Sodium Chloride 0.9% 1, 1000 000 ml @ 999 mls/hr IV . Q1H1M ONE Rx#:[id number] Sodium Chloride 0.9% 500 500 ml @ 999 mls/hr IV .Q31M ONE Rx#:[id number] Oral 60 Blood Product 872 Rc Pheresis As-3 Unit 0 [id number] Rc Pheresis As-3 Unit 281 [id number] Output: Urine 277 277 65 Other: Voiding Method Indwelling Catheter Indwelling Catheter Indwelling Catheter Weight 105.4 kg Head exam was generally normal. There was no scleral icterus or corneal arcus. Mucous membranes were moist.Neck was supple and without jugular venous distension, thyromegaly, or carotid bruits. Carotids were easily palpable bilaterally. There was no adenopathy. Lung sounds are diminished bilaterally especially lung bases. Heart sounds are irregular, positive S1-S2, sternum is stable clean and intact, no significant murmurs appreciated.Abdominal exam revealed normal bowel sounds. The abdomen was soft, non-tender, and without masses, organomegaly, or appreciable enlargement of the abdominal aorta. Extremities are scaly and dry and there is trace edema along with some few areas of stage I ulceration without evidence of any cellulitis. The patient has onychomycosis. Neurologically, awake and alert and follows commands and answers questions appropriately. Results - Laboratory Findings CBC and BMP: 11/22/16 05:23 11/22/16 05:23 PT/INR, D-dimer PT 32.7 sec (9.0-12.0) H 11/22/16 05:23 INR 3.4 (<1.1) 11/22/16 05:23 Abnormal lab findings: Abnormal Labs 11/21/16 11/21/16 11/21/16 19:28 23:39 23:50 WBC RBC Hgb Hct MCV RDW Neutrophils # Lymphocytes # PT Sodium BUN Creatinine Glucose POC Glucose (mg/dL) 136 H Calcium Troponin I 0.068 H* Urine Protein 1+ H Urine Blood Large H Ur Leukocyte Esterase Large H Urine RBC >182 H Urine WBC >182 H Urine WBC Clumps Many H Urine Bacteria Few H Hyaline Casts 77 H Urine Mucus Rare H 11/22/16 11/22/16 11/22/16 01:00 05:23 05:23 WBC 11.0 H RBC 2.30 L Hgb 7.4 L D Hct 23.3 L MCV 101.1 H RDW 17.7 H Neutrophils # 10.4 H Lymphocytes # 0.4 L PT Sodium 135 L BUN 35 H Creatinine 1.55 H Glucose 155 H POC Glucose (mg/dL) 171 H Calcium 7.0 L Troponin I Urine Protein Urine Blood Ur Leukocyte Esterase Urine RBC Urine WBC Urine WBC Clumps Urine Bacteria Hyaline Casts Urine Mucus 11/22/16 11/22/16 11/22/16 05:23 05:23 06:09 WBC RBC Hgb Hct MCV RDW Neutrophils # Lymphocytes # PT 32.7 H Sodium BUN Creatinine Glucose POC Glucose (mg/dL) 172 H Calcium Troponin I 0.089 H* Urine Protein Urine Blood Ur Leukocyte Esterase Urine RBC Urine WBC Urine WBC Clumps Urine Bacteria Hyaline Casts Urine Mucus 11/22/16 11:47 WBC RBC Hgb Hct MCV RDW Neutrophils # Lymphocytes # PT Sodium BUN Creatinine Glucose POC Glucose (mg/dL) 155 H Calcium Troponin I Urine Protein Urine Blood Ur Leukocyte Esterase Urine RBC Urine WBC Urine WBC Clumps Urine Bacteria Hyaline Casts Urine Mucus - Diagnostic Findings Chest x-ray: image reviewed Assessment and Plan Plan: Assessment 1 change in mental status, recovered and normalized. 2 traumatic Nguyen catheterization with evidence of obstructive uropathy. The patient is producing adequate amount of urine output at this point. Rule out underlying urinary tract infection. 3 acute kidney injury secondary to obstructive uropathy, improving with fluid resuscitation and flushing of the Nguyen catheter. Ultrasound the kidneys are to follow 4 coronary artery disease with previous bypass surgery 5 aortic valve replacement/tissue valve 6 chronic atrial fibrillation 7 supratherapeutic PT/INR 8 cor pulmonale with right-sided heart failure with significantly elevated PA pressures 9 chronic lower extremities edema along with stage I superficial ulceration 10 hyperlipidemia 11 hypothyroidism 12 hyperuricemia 13 osteoarthritis Plan Stop the IV Lasix. Hydrate the patient with IV fluids normal saline at the rate of 50 mL an hour. Watch for any signs of fluid overload. Monitor the urine output and obtain an ultrasound of the kidneys and repeat the renal function with the next 24 hours. Obtain urine culture. Keep the patient on Keflex for now and this was given to him for lower extremity wound infection. We'll modify the antibiotics if there is any evidence of urine checked infection that needs further treatment. Meanwhile, mental status is normal. Discontinue the BiPAP. Keep the patient on oxygen at 2 L/m nasal cannula. Apply therapeutic honey to the lower extremity along with [place] wraps. The patient can be moved out of the intensive care unit today.
[2016-11-22] MEDS: INSULIN LISPRO (humaLOG) 300 UNIT/3 ML VIAL SQ SCH ×2 (18:20→20:31)
[2016-11-22 18:22] LABS: Glucose,Whole Blood 177 mg/dL (75-99)
[2016-11-22] MEDS: TAMSULOSIN 0.4 MG CAP.ER.24H PO SCH (20:28)
[2016-11-22] MEDS: MELATONIN 5 MG TABLET PO SCH (20:28)
[2016-11-22] MEDS: ATORVASTATIN 40 MG TAB PO SCH (20:28)
[2016-11-22] MEDS: ALLOPURINOL 100 MG TAB PO SCH (20:28)
[2016-11-22] MEDS: CEPHALEXIN 500 MG CAP PO SCH (20:28)
[2016-11-22 20:31] LABS: Glucose,Whole Blood 186 mg/dL (75-99)
[2016-11-22] MEDS: SYMBICORT 80-4.5 MCG INHALER INHALATION SCH (20:53)
[2016-11-22] MEDS: SENNOSIDES-DOCUSATE SODIUM 1 EACH TAB PO SCH (21:16)
[2016-11-23 02:37] LABS: Calcium 7.5 mg/dL (8.4-10.2); Magnesium 2.2 mg/dL (1.6-2.3); Potassium 3.7 mmol/L (3.5-5.1)
[2016-11-23] MEDS: SILDENAFIL 20 MG TAB PO SCH ×4 (04:06→22:28)
[2016-11-23] MEDS ORDERED: Potassium Replacement Protocol 1 EACH MISC MISCELLANE PRN (04:13)
[2016-11-23 04:45] LABS: Anisocytosis Slight; Basophils % (A) 0 %; CH 32.5; CHCM 32.4; Eosinophils % (A) 0 %; HCT 22.4 % (39.0-53.0); HDW 4.18; HGB 7.5 gm/dL (13.0-17.5); Hypochromasia Moderate; Luc # (Auto) 0.07; Luc % (Auto) 1; Lymphocytes # (A) 0.4 k/uL (1.0-4.8); Lymphocytes % (A) 5 %; MCH 33.9 pg (25.0-35.0); MCHC 33.4 g/dL (31.0-37.0); MCV 101.5 fL (80.0-100.0); Macrocytosis Moderate; Mean Platelet Volume 7.6; Monocytes # (A) 0.3 k/uL (0-1.0); Monocytes % (A) 4 %; Neutrophils # (A) 7.2 k/uL (1.3-7.7); Neutrophils % (A) 90 %; Poikilocytosis Moderate; WBC (Perox) 8.13
[2016-11-23 04:56] LABS: INR 4.4 (<1.1); Prothrombin Time 43.4 sec (9.0-12.0)
[2016-11-23] MEDS ORDERED: POTASSIUM CHLORIDE ER 20 MEQ TAB.ER PO SCH (05:00)
[2016-11-23 05:06] LABS: Calcium 7.5 mg/dL (8.4-10.2); Magnesium 2.2 mg/dL (1.6-2.3); Phosphorous 3.3 mg/dL (2.5-4.5); Potassium 3.9 mmol/L (3.5-5.1)
[2016-11-23 06:02] LABS: INR 4.8 (<1.1); Prothrombin Time 47.1 sec (9.0-12.0)
[2016-11-23 07:25] LABS: Glucose,Whole Blood 152 mg/dL (75-99)
--- NOTE | 2016-11-23 07:42 | XR ---
EXAMINATION TYPE: XR chest 1V DATE OF EXAM: 11/23/2016 6:56 AM HISTORY: Shortness of breath. COMPARISON: 11/22/2016 TECHNIQUE: Single view of the chest is submitted. FINDINGS: Demonstrated are scattered senescent parenchymal change. There is stable patchy density right lower lobe which may reflect infiltrate and/or atelectasis. The heart is stable. Hilar and mediastinal structures are within normal limits. Degenerative changes are seen of the dorsal spine. IMPRESSION: 1. There is stable patchy density right lower lobe which may reflect infiltrate and/or atelectasis.
[2016-11-23] MEDS: INSULIN LISPRO (humaLOG) 300 UNIT/3 ML VIAL SQ SCH ×4 (08:42→20:59)
--- NOTE | 2016-11-23 08:43 | CONS ---
DATE OF CONSULTATION: 11/22/2016 REASON FOR CONSULTATION: Urinary retention and gross hematuria. HISTORY OF PRESENT ILLNESS: The patient is a 76-year-old male admitted through the emergency room on 11/21 for evaluation of a change in his level of consciousness associated with shortness of breath, and hypoxia. The patient was also noted to have bleeding around his Nguyen catheter as well as gross hematuria. At the time of admission, the patient's hemoglobin was 5.8. Patient received 2 units of packed red blood cells. He had been on warfarin and his INR was elevated at 3.8 The patient continued to have bleeding around his Nguyen catheter. His catheter has been irrigated several times and at the present time his urine is concentrated but free of clots. Patient's problem began while he was on cruise in [place] when he fell and fractured his right hip. He developed urinary retention following ORIF of his hip fracture. He failed a voiding trial prior to his transfer to [place]. He was in the [facility] approximately 10 days ago due to a concern for cellulitis. He was given another voiding trial at that time and apparently could not void. He was seen in the emergency room on 11/20 as his Nguyen catheter apparently fell out. There was difficulty in reinsertion of a catheter, but eventually a 16 [place] catheter was inserted. According to the patient's , shortly after that he had very little output through the catheter and a large amount of bleeding around the catheter. His hemoglobin had been 9.8 on 11/13. It was 8.8 when he was seen in the emergency room on 11/20 and was 5.8, on admission yesterday. He has received 2 units of packed cells and his hemoglobin is now 7.4. The patient said that he had been voiding without difficulty prior to his hip fracture. He did complain of a slow flow but felt he was voiding completely. He usually voided every 2 to 3 hours during the day and 2 or 3 times at night. He had no previous history of gross hematuria. Patient's past medical history significant in regard to coronary artery disease. The patient has also undergone a porcine aortic valve replacement as well as mitral valve replacement. He has a history of COPD and hypothyroidism. Current medications include: 1. Albuterol. 2. Zyloprim. 3. Lipitor. 4. Symbicort. 5. Keflex. 6. Humalog. 7. Synthroid. 8. Protonix. 9. Sildenafil. 10. Flomax. The patient is on sildenafil due to pulmonary hypertension. Review of systems is significant in regard to the above. The patient does have shortness of breath with minimal exertion at the present time. Physical exam reveals a 76-year-old male who is alert and oriented. Afebrile. Blood pressure 102/50. HEENT: No supraclavicular or cervical adenopathy. CHEST: Breathing is unlabored. ABDOMEN: Obese. No hepatosplenomegaly. No suprapubic tenderness. GENITALIA: A urethral catheter is in place. At the present time there is no blood around urethral meatus. Both testicles are descended. Additional laboratory evaluation included a BUN and creatinine 33/1.7 on 11/21. BUN and creatinine today are 35/1.55. BUN and creatinine on 11/20 were 25/0.84. Renal ultrasound was performed earlier today and showed no right hydronephrosis. The left kidney was not well visualized. IMPRESSION: 1. Gross hematuria and bleeding around urethral catheter, most likely related to traumatic insertion of Nguyen catheter, which was complicated by coagulopathy from the use of warfarin. The patient's INR was outside the therapeutic range as well. 2. Recent acute renal failure, most likely related to obstructive uropathy. The patient's BUN and creatinine were relatively normal 2 days ago. 3. Urinary retention, most likely related to underlying benign prostatic hypertrophy, which was worsened by the patient's recent inability to ambulate from his hip fracture. It is unclear whether the patient has had previous episodes of bladder overdistention which may temporarily weaken his bladder. He is currently taking tamsulosin. RECOMMENDATIONS: 1. Patient's catheter should be irrigated to ensure that no clots remain within the catheter. Unfortunately, only a small catheter was inserted and because of that small clots could easily occlude the catheter. 2. The patient's catheter should be left in place for at least 3 or 4 days prior to a voiding trial. It may be reasonable to add finasteride to the tamsulosin. The patient is at high operative risk for any type of surgical procedure. If he remains unable to void, then intermittent catheterization could be an option; however, in view of the recent difficulty with gross hematuria from placement of a catheter, I believe that this would not be a preferred option in the short term. Thank you for the allowing me to participate in the care of this patient. JUNE
[2016-11-23] MEDS: ALLOPURINOL 100 MG TAB PO SCH ×2 (08:49→20:56)
[2016-11-23] MEDS: PANTOPRAZOLE 40 MG/10 ML VIAL IVP SCH (08:50)
[2016-11-23] MEDS: LORATADINE 10 MG TAB PO SCH (08:50)
[2016-11-23] MEDS: CEPHALEXIN 500 MG CAP PO SCH ×2 (08:50→20:56)
[2016-11-23] MEDS: SENNOSIDES-DOCUSATE SODIUM 1 EACH TAB PO SCH ×2 (08:51→20:58)
[2016-11-23] MEDS: IPRATROPIUM-ALBUTEROL 3 ML NEB INHALATION SCH ×4 (09:18→21:34)
[2016-11-23] MEDS: SYMBICORT 80-4.5 MCG INHALER INHALATION SCH ×2 (09:18→21:34)
[2016-11-23 12:14] LABS: Glucose,Whole Blood 182 mg/dL (75-99)
[2016-11-23] MEDS: AMMONIUM LACTATE 12% LOTION 225 GM BTL TOPICAL SCH (12:15)
[2016-11-23] MEDS: MULTIVITAMINS, THERA 1 EACH TAB PO SCH (12:16)
--- NOTE | 2016-11-23 12:54 | P.PN ---
Subjective 76-year-old male patient, came in today emergency department from the [facility] because of diminished level of consciousness and bleeding from the penis. The patient apparently was having diminished level of consciousness and diminished urine output over the past few days and this was noted at the correction. The Nguyen catheter was flushed without any improvement in the urine output. Note that the patient has had a Nguyen catheter for long period of time and this was placed in for complete case of obstructive uropathy. At one point used to self catheterize himself. He is also status post right hip ORIF following a fall that occurred during a recent cruise. The patient had his surgery done in [place] and following that he was transferred to [facility] and [place] where he was further recuperating. My understanding is that the patient was having his Nguyen catheter being replaced the correction and this was a traumatic Nguyen catheter insertion and he subsequently got complicated by obstruction probably later to clots. The patient came into the intensive care unit yesterday. The patient was found to have a hemoglobin of 5.8. The patient was given a total of 2 units of packed RBCs. The patient was also given 3.5 L of IV fluids. The Nguyen catheter was reflux. The patient was also supported with a BiPAP at a pressure of 12 over 5 cm of water and started this morning was taken off the BiPAP and he was placed on 2 L of oxygen by nasal cannula. He is calm and comfortable. Denies having any chest pain. No cough or sputum production. No chest pain. Over the past 24 hours the patient's mentation improved considerably to the point where he is completely back to his normal. He is moving all 4 extremities without any abnormalities. He was in acute kidney injury in the creatinine was at 1.7 and the patient started making good urine output. PT INR is supratherapeutic with an INR of 3.4. The rest of the electrodes are all within normal limits. Troponin is at 0.08 max The patient is seen again today 11/23/2016 in follow-up on the selective care unit. He is awake and alert in no acute distress. He is status post 2 units of packed red blood cells and his hemoglobin remained stable at 7.7. No further active bleeding noted in the indwelling catheter. Cultures are pending. He was seen and evaluated by urology services. No intervention is planned at this time. Denies any worsening shortness of breath, cough or congestion. He is maintaining good O2 saturations in the upper 90s on 2 L/m per nasal cannula. He is afebrile. Hemodynamically stable. Objective - Vital Signs Vital signs: Vital Signs Temp 98.0 F 11/23/16 08:00 Pulse 96 11/23/16 12:40 Resp 16 11/23/16 09:00 BP 93/55 11/23/16 09:00 Pulse Ox 97 11/23/16 09:18 Intake & Output 11/22/16 11/23/16 11/23/16 18:59 06:59 18:59 Intake Total 760 50 240 Output Total 402 662 145 Balance 358 -612 95 Weight 106.5 kg 106.5 kg Intake: Intake, IV Titration 700 50 Amount Magnesium Sulfate-D5w Pmx 200 1 gm In Dextrose/Water 1 100ml.bag @ 100 mls/hr IVPB ONCE ONE Rx#: [id number] Sodium Chloride 0.9% 1, 500 50 000 ml @ 50 mls/hr IV . Q20H STA Rx#:[id number] Oral 60 240 Output: Urine 402 662 145 Other: Voiding Method Indwelling Catheter Indwelling Catheter Indwelling Catheter - Exam Head exam was generally normal. There was no scleral icterus or corneal arcus. Mucous membranes were moist.Neck was supple and without jugular venous distension, thyromegaly, or carotid bruits. Carotids were easily palpable bilaterally. There was no adenopathy. Lung sounds are diminished bilaterally especially lung bases. Heart sounds are irregular, positive S1-S2, sternum is stable clean and intact, no significant murmurs appreciated.Abdominal exam revealed normal bowel sounds. The abdomen was soft, non-tender, and without masses, organomegaly, or appreciable enlargement of the abdominal aorta. Extremities are scaly and dry and there is trace edema along with some few areas of stage I ulceration without evidence of any cellulitis. The patient has onychomycosis. Neurologically, awake and alert and follows commands and answers questions appropriately. - Labs CBC & Chem 7: 11/23/16 04:02 11/23/16 04:02 Labs: Abnormal Lab Results - Last 24 Hours (Table) 11/22/16 11/22/16 11/22/16 Range/Units 16:52 18:17 20:30 RBC (4.30-5.90) m/uL Hgb (13.0-17.5) gm/dL Hct (39.0-53.0) % MCV (80.0-100.0) fL RDW (11.5-15.5) % Lymphocytes # (1.0-4.8) k/uL PT (9.0-12.0) sec Sodium (137-145) mmol/L BUN (9-20) mg/dL Creatinine (0.66-1.25) mg/dL Glucose (74-99) mg/dL POC Glucose (mg/dL) 174 H 177 H 186 H (75-99) mg/dL Calcium (8.4-10.2) mg/dL 11/23/16 11/23/16 11/23/16 Range/Units 01:32 04:02 04:02 RBC 2.20 L (4.30-5.90) m/uL Hgb 7.5 L (13.0-17.5) gm/dL Hct 22.4 L (39.0-53.0) % MCV 101.5 H (80.0-100.0) fL RDW 18.0 H (11.5-15.5) % Lymphocytes # 0.4 L (1.0-4.8) k/uL PT (9.0-12.0) sec Sodium 134 L 134 L (137-145) mmol/L BUN 40 H 40 H (9-20) mg/dL Creatinine 1.40 H 1.40 H (0.66-1.25) mg/dL Glucose 133 H 145 H (74-99) mg/dL POC Glucose (mg/dL) (75-99) mg/dL Calcium 7.5 L 7.5 L (8.4-10.2) mg/dL 11/23/16 11/23/16 11/23/16 Range/Units 04:02 05:33 07:22 RBC (4.30-5.90) m/uL Hgb (13.0-17.5) gm/dL Hct (39.0-53.0) % MCV (80.0-100.0) fL RDW (11.5-15.5) % Lymphocytes # (1.0-4.8) k/uL PT 43.4 H 47.1 H (9.0-12.0) sec Sodium (137-145) mmol/L BUN (9-20) mg/dL Creatinine (0.66-1.25) mg/dL Glucose (74-99) mg/dL POC Glucose (mg/dL) 152 H (75-99) mg/dL Calcium (8.4-10.2) mg/dL 11/23/16 Range/Units 12:03 RBC (4.30-5.90) m/uL Hgb (13.0-17.5) gm/dL Hct (39.0-53.0) % MCV (80.0-100.0) fL RDW (11.5-15.5) % Lymphocytes # (1.0-4.8) k/uL PT (9.0-12.0) sec Sodium (137-145) mmol/L BUN (9-20) mg/dL Creatinine (0.66-1.25) mg/dL Glucose (74-99) mg/dL POC Glucose (mg/dL) 182 H (75-99) mg/dL Calcium (8.4-10.2) mg/dL Microbiology - Last 24 Hours (Table) 11/22/16 16:00 Urine Culture - Preliminary Urine,Catheterized Assessment and Plan Plan: Assessment 1 change in mental status, recovered and normalized. 2 traumatic Nguyen catheterization with evidence of obstructive uropathy. The patient is producing adequate amount of urine output at this point. Rule out underlying urinary tract infection. 3 acute kidney injury secondary to obstructive uropathy, improving with fluid resuscitation and flushing of the Nguyen catheter. Ultrasound the kidneys are to follow 4 coronary artery disease with previous bypass surgery 5 aortic valve replacement/tissue valve 6 chronic atrial fibrillation 7 supratherapeutic PT/INR, current INR 4.8. 8 cor pulmonale with right-sided heart failure with significantly elevated PA pressures maintained on Revatio. 9 chronic lower extremities edema along with stage I superficial ulceration 10 hyperlipidemia 11 hypothyroidism 12 hyperuricemia 13 osteoarthritis Plan: The patient was seen and evaluated by Dr. Ku. He is stable from the pulmonary and critical care standpoint. He has not required any BiPAP support. His lower extremities have improved post therapeutic on 8 to the lower extremities and [place] wraps. He remains on Keflex. Urology has no plans for further intervention regarding the blood in the urine. He urine culture is pending. His hemoglobin is stable. No further acute bleeding noted. Continue to hold warfarin based on supratherapeutic INR. Will continue with his current medications. We will increase his activity as tolerated. We'll continue to follow.
--- NOTE | 2016-11-23 14:50 | P.PN ---
Subjective patient is doing fairly well today. No acute events overnight. Objective - Vital Signs Vital signs: Vital Signs Temp 97.0 F L 11/23/16 11:55 Pulse 96 11/23/16 12:48 Resp 18 11/23/16 11:55 BP 116/55 11/23/16 11:55 Pulse Ox 96 11/23/16 11:55 Intake & Output 11/22/16 11/23/16 11/23/16 18:59 06:59 18:59 Intake Total 760 50 580 Output Total 402 662 145 Balance 358 -612 435 Weight 106.5 kg 106.5 kg Intake: Intake, IV Titration 700 50 Amount Magnesium Sulfate-D5w Pmx 200 1 gm In Dextrose/Water 1 100ml.bag @ 100 mls/hr IVPB ONCE ONE Rx#: [id number] Sodium Chloride 0.9% 1, 500 50 000 ml @ 50 mls/hr IV . Q20H STA Rx#:[id number] Oral 60 580 Output: Urine 402 662 145 Other: Voiding Method Indwelling Catheter Indwelling Catheter Indwelling Catheter - Exam General: The patient is awake and alert, in no distress Eye: there is normal conjunctiva bilaterally. Neck: The neck is supple, there is no JVD. Cardiovascular: Normal S1-S2, no S3-S4, no murmurs. Respiratory: Lungs clear to auscultation bilaterally Gastrointestinal: Abdomen is soft, nontender Musculoskeletal: There is no pedal edema. Neurological:. Speech is normal. Skin: Skin is warm and dry - Labs CBC & Chem 7: 11/23/16 04:02 11/23/16 04:02 Labs: Abnormal Lab Results - Last 24 Hours (Table) 11/22/16 11/22/16 11/22/16 Range/Units 16:52 18:17 20:30 RBC (4.30-5.90) m/uL Hgb (13.0-17.5) gm/dL Hct (39.0-53.0) % MCV (80.0-100.0) fL RDW (11.5-15.5) % Lymphocytes # (1.0-4.8) k/uL PT (9.0-12.0) sec Sodium (137-145) mmol/L BUN (9-20) mg/dL Creatinine (0.66-1.25) mg/dL Glucose (74-99) mg/dL POC Glucose (mg/dL) 174 H 177 H 186 H (75-99) mg/dL Calcium (8.4-10.2) mg/dL 11/23/16 11/23/16 11/23/16 Range/Units 01:32 04:02 04:02 RBC 2.20 L (4.30-5.90) m/uL Hgb 7.5 L (13.0-17.5) gm/dL Hct 22.4 L (39.0-53.0) % MCV 101.5 H (80.0-100.0) fL RDW 18.0 H (11.5-15.5) % Lymphocytes # 0.4 L (1.0-4.8) k/uL PT (9.0-12.0) sec Sodium 134 L 134 L (137-145) mmol/L BUN 40 H 40 H (9-20) mg/dL Creatinine 1.40 H 1.40 H (0.66-1.25) mg/dL Glucose 133 H 145 H (74-99) mg/dL POC Glucose (mg/dL) (75-99) mg/dL Calcium 7.5 L 7.5 L (8.4-10.2) mg/dL 11/23/16 11/23/16 11/23/16 Range/Units 04:02 05:33 07:22 RBC (4.30-5.90) m/uL Hgb (13.0-17.5) gm/dL Hct (39.0-53.0) % MCV (80.0-100.0) fL RDW (11.5-15.5) % Lymphocytes # (1.0-4.8) k/uL PT 43.4 H 47.1 H (9.0-12.0) sec Sodium (137-145) mmol/L BUN (9-20) mg/dL Creatinine (0.66-1.25) mg/dL Glucose (74-99) mg/dL POC Glucose (mg/dL) 152 H (75-99) mg/dL Calcium (8.4-10.2) mg/dL 11/23/16 Range/Units 12:03 RBC (4.30-5.90) m/uL Hgb (13.0-17.5) gm/dL Hct (39.0-53.0) % MCV (80.0-100.0) fL RDW (11.5-15.5) % Lymphocytes # (1.0-4.8) k/uL PT (9.0-12.0) sec Sodium (137-145) mmol/L BUN (9-20) mg/dL Creatinine (0.66-1.25) mg/dL Glucose (74-99) mg/dL POC Glucose (mg/dL) 182 H (75-99) mg/dL Calcium (8.4-10.2) mg/dL Microbiology - Last 24 Hours (Table) 11/22/16 16:00 Urine Culture - Preliminary Urine,Catheterized Assessment and Plan Plan: 1. Gross hematuria, most likely secondary to traumatic Nguyen insertion. Urology consulted for further evaluation, appreciate recommendation 2. Acute blood loss anemia status post 2 units of PRBC transfusion. We will monitor hemoglobin daily. 3. Acute on chronic hypoxic respiratory failure now back to baseline oxygen 2 L 4. Severe pulmonary hypertension with cor pulmonale on Lasix and sildenafil as an outpatient 5. Systolic heart failure with estimated ejection fraction of 45%: Now compensated with no exacerbation 6. Chronic venous insufficiency with venous insufficiency eczematous changes and dry skin: Currently finishing oral Keflex treatment for recent cellulitis 7. Paroxysmal atrial fibrillation on anticoagulation with Coumadin currently on hold for elevated INR 8. Underlying COPD with no evidence of exacerbation 9. Status post recent intramedullary hip screw fixation of the right hip approximately 2 months ago in [place] Today, I discussed with the patient and his his current clinical condition. we will continue current regimen. Repeat lab work in the morning and monitor kidney function. Urine is clearing. Anticipate discharge back to ECF within the next day or 2.
[2016-11-23 17:15] LABS: Glucose,Whole Blood 166 mg/dL (75-99)
[2016-11-23 20:40] LABS: Glucose,Whole Blood 160 mg/dL (75-99)
[2016-11-23] MEDS: TAMSULOSIN 0.4 MG CAP.ER.24H PO SCH (20:57)
[2016-11-23] MEDS: ATORVASTATIN 40 MG TAB PO SCH (20:57)
[2016-11-23] MEDS: MELATONIN 5 MG TABLET PO SCH (20:58)
[2016-11-23] MEDS: LEVOTHYROXINE 137 MCG TAB PO SCH (20:58)
[2016-11-23] MEDS ORDERED: oxyCODONE-APAP 5-325MG 1 EACH TAB PO PRN (21:08)
[2016-11-23 22:02] LABS: Hemoglobin A1C 5.1 % (4.2-6.1)
[2016-11-24] MEDS: SILDENAFIL 20 MG TAB PO SCH ×2 (04:01→12:42)
[2016-11-24 06:13] LABS: Glucose,Whole Blood 122 mg/dL (75-99)
[2016-11-24] MEDS: INSULIN LISPRO (humaLOG) 300 UNIT/3 ML VIAL SQ SCH ×2 (06:35→12:39)
[2016-11-24 07:33] LABS: INR 2.6 (<1.1); Prothrombin Time 24.7 sec (9.0-12.0)
[2016-11-24 07:51] LABS: Anisocytosis Slight; Basophils % (A) 0 %; CH 31.4; CHCM 31.4; Eosinophils % (A) 0 %; HCT 23.2 % (39.0-53.0); HDW 3.93; HGB 7.5 gm/dL (13.0-17.5); Hypochromasia Moderate; Luc # (Auto) 0.12; Luc % (Auto) 1; Lymphocytes # (A) 0.5 k/uL (1.0-4.8); Lymphocytes % (A) 5 %; MCH 32.7 pg (25.0-35.0); MCHC 32.4 g/dL (31.0-37.0); MCV 101.1 fL (80.0-100.0); Macrocytosis Moderate; Mean Platelet Volume 7.5; Monocytes # (A) 0.6 k/uL (0-1.0); Monocytes % (A) 6 %; Neutrophils # (A) 8.3 k/uL (1.3-7.7); Neutrophils % (A) 87 %; Poikilocytosis Slight; RDW 17.3 % (11.5-15.5); WBC 9.5 k/uL (3.8-10.6); WBC (Perox) 9.62
[2016-11-24 07:58] LABS: Anion Gap 9 mmol/L; Blood Urea Nitrogen 43 mg/dL (9-20); Calcium 7.7 mg/dL (8.4-10.2); Carbon Dioxide 27 mmol/L (22-30); Chloride 99 mmol/L (98-107); Glucose 109 mg/dL (74-99); Magnesium 2.2 mg/dL (1.6-2.3); Non-African American GFR(MDRD) 59 (>60 ml/min/1.73 sqM); Phosphorous 3.3 mg/dL (2.5-4.5); Potassium 4.3 mmol/L (3.5-5.1); Sodium 135 mmol/L (137-145)
[2016-11-24 08:26] VITALS: RESP 18
[2016-11-24] MEDS: CEPHALEXIN 500 MG CAP PO SCH (09:11)
[2016-11-24] MEDS: LORATADINE 10 MG TAB PO SCH (09:11)
[2016-11-24] MEDS: PANTOPRAZOLE 40 MG/10 ML VIAL IVP SCH (09:12)
[2016-11-24] MEDS: AMMONIUM LACTATE 12% LOTION 225 GM BTL TOPICAL SCH (09:12)
[2016-11-24] MEDS: ALLOPURINOL 100 MG TAB PO SCH (09:12)
[2016-11-24] MEDS: SENNOSIDES-DOCUSATE SODIUM 1 EACH TAB PO SCH (09:20)
[2016-11-24 09:56] VITALS: BMI 32.8
--- NOTE | 2016-11-24 10:24 | XR ---
EXAMINATION TYPE: XR chest 1V DATE OF EXAM: 11/24/2016 7:02 AM COMPARISON: 11/23/2016 INDICATION: CHF with shortness of breath TECHNIQUE: Single frontal view of the chest is obtained. FINDINGS: The heart size is enlarged. The pulmonary vasculature is slightly prominent. Minimal infiltrate is at the lung bases. Early pulmonary edema could be considered. Atelectasis is wi thin the differential. Small left pleural effusion is not excluded. IMPRESSION: 1. Cardiomegaly with prominent pulmonary vascular markings. 2. Mild infiltrates at the bases greater on the left small left pleural effusion. Correlate for early congestive heart failure.
[2016-11-24 11:36] LABS: Glucose,Whole Blood 117 mg/dL (75-99)
[2016-11-24] MEDS: SYMBICORT 80-4.5 MCG INHALER INHALATION SCH (11:41)
[2016-11-24] MEDS: IPRATROPIUM-ALBUTEROL 3 ML NEB INHALATION SCH ×2 (11:41)
--- NOTE | 2016-11-24 11:43 | P.DS ---
Providers Date of admission: 11/21/16 18:12 Expected date of discharge: 11/24/16 Attending physician: Yeni Nazario Consults: 11/22/16 08:34 Consult Physician Routine Consulting Provider: [place] Mon Consult Reason/Comments: penile bleeding Do you want consulting provider notified?: Yes [facility] Course: 1. Gross hematuria, most likely secondary to traumatic Nguyen insertion. Seen and evaluated by urology. Urine is currently clear 2. Acute blood loss anemia status post 2 units of PRBC transfusion. We will monitor hemoglobin periodically 3. Acute on chronic hypoxic respiratory failure now back to baseline oxygen 2 L 4. Severe pulmonary hypertension with cor pulmonale on Lasix and sildenafil as an outpatient 5. Systolic heart failure with estimated ejection fraction of 45%: Now compensated with no exacerbation 6. Chronic venous insufficiency with venous insufficiency eczematous changes and dry skin: Currently finishing oral Keflex treatment for recent cellulitis 7. Paroxysmal atrial fibrillation on anticoagulation with Coumadin currently on hold for elevated INR 8. Underlying COPD with no evidence of exacerbation 9. Status post recent intramedullary hip screw fixation of the right hip approximately 2 months ago in [place] Patient Condition at Discharge: Serious Plan - Discharge Summary New Discharge Prescriptions: Finasteride [Proscar] 5 mg PO DAILY #30 tablet Warfarin Sodium [Coumadin] 4 mg PO HS #30 tablet Discharge Medication List Acetaminophen Tab [Tylenol] 650 mg PO Q4H PRN 11/08/16 [History] Allopurinol [Zyloprim] 100 mg PO BID 11/08/16 [History] Amino Acids/Protein Hydrolys [Pro-Stat Supplement] 30 ml PO DAILY 11/08/16 [ History] Bisacodyl 10 mg RECTAL DAILY PRN 11/08/16 [History] Fluticasone/Vilanterol [Breo Ellipta 100-25 Mcg Inhaler] 2 puff INHALATION RT- DAILY 11/08/16 [History] Ipratropium-Albuterol Nebulize [Duoneb 0.5 mg-3 mg/3 ml Soln] 3 ml INHALATION RT -Q8H PRN 11/08/16 [History] Levothyroxine Sodium [Synthroid] 137 mcg PO HS 11/08/16 [History] Melatonin 5 mg PO HS 11/08/16 [History] Omeprazole 20 mg PO HS 11/08/16 [History] Sennosides/Docusate Sodium [[place]-Colace Tablet] 1 tab PO BID 11/08/16 [History] Tamsulosin [Flomax] 0.4 mg PO HS 11/08/16 [History] Tiotropium 18 Mcg/Puff [Spiriva] 1 cap INHALATION RT-DAILY 11/08/16 [History] Atorvastatin [Lipitor] 40 mg PO HS tab 11/13/16 [Rx] Furosemide [Lasix] 40 mg PO BID@0900,1600 tab 11/13/16 [Rx] Lactulose [Cephulac] 20 gm PO DAILY PRN 11/20/16 [History] Sildenafil [Revatio] 20 mg PO Q8H 11/21/16 [History] Finasteride [Proscar] 5 mg PO DAILY #30 tablet 11/24/16 [Rx] Warfarin Sodium [Coumadin] 4 mg PO HS #30 tablet 11/24/16 [Rx] Follow up Appointment(s)/Referral(s): Yeni Nazario MD [Primary Care Provider] - 1-2 days Patient Instructions/Handouts: Heart Failure (GEN) Discharge Disposition: TRANSFER TO SNF/ECF
[2016-11-24 12:01] VITALS: BP 155/54; PULSE 77; TEMP 98.1
[2016-11-24] MEDS: MULTIVITAMINS, THERA 1 EACH TAB PO SCH (12:42)
--- NOTE | 2016-11-24 18:15 | P.PN ---
Subjective 76-year-old male patient, came in today emergency department from the [facility] because of diminished level of consciousness and bleeding from the penis. The patient apparently was having diminished level of consciousness and diminished urine output over the past few days and this was noted at the prison. The Nguyen catheter was flushed without any improvement in the urine output. Note that the patient has had a Nguyen catheter for long period of time and this was placed in for complete case of obstructive uropathy. At one point used to self catheterize himself. He is also status post right hip ORIF following a fall that occurred during a recent cruise. The patient had his surgery done in [place] and following that he was transferred to [facility] and [place] where he was further recuperating. My understanding is that the patient was having his Nguyen catheter being replaced the prison and this was a traumatic Nguyen catheter insertion and he subsequently got complicated by obstruction probably later to clots. The patient came into the intensive care unit yesterday. The patient was found to have a hemoglobin of 5.8. The patient was given a total of 2 units of packed RBCs. The patient was also given 3.5 L of IV fluids. The Nguyen catheter was reflux. The patient was also supported with a BiPAP at a pressure of 12 over 5 cm of water and started this morning was taken off the BiPAP and he was placed on 2 L of oxygen by nasal cannula. He is calm and comfortable. Denies having any chest pain. No cough or sputum production. No chest pain. Over the past 24 hours the patient's mentation improved considerably to the point where he is completely back to his normal. He is moving all 4 extremities without any abnormalities. He was in acute kidney injury in the creatinine was at 1.7 and the patient started making good urine output. PT INR is supratherapeutic with an INR of 3.4. The rest of the electrodes are all within normal limits. Troponin is at 0.08 max The patient is seen again today 11/23/2016 in follow-up on the selective care unit. He is awake and alert in no acute distress. He is status post 2 units of packed red blood cells and his hemoglobin remained stable at 7.7. No further active bleeding noted in the indwelling catheter. Cultures are pending. He was seen and evaluated by urology services. No intervention is planned at this time. Denies any worsening shortness of breath, cough or congestion. He is maintaining good O2 saturations in the upper 90s on 2 L/m per nasal cannula. He is afebrile. Hemodynamically stable. The patient was seen again today 11/24/2016 in follow-up on the selective care unit. He is awake and alert in no acute distress. He is feeling stronger today as compared to yesterday. No further bleeding noted. He denies any worsening shortness of breath cough or congestion. The plan is for transfer to [facility] for continued inpatient rehabilitation today. Objective - Vital Signs Vital signs: Vital Signs Temp 98.1 F 11/24/16 12:00 Pulse 77 11/24/16 12:00 Resp 18 11/24/16 12:00 BP 155/54 11/24/16 12:00 Pulse Ox 96 11/24/16 12:00 Intake & Output 11/23/16 11/24/16 11/24/16 18:59 06:59 18:59 Intake Total 820 0 600 Output Total 545 700 Balance 275 -700 600 Weight 106.5 kg 107 kg 107 kg Intake: Oral 820 0 600 Output: Urine 545 700 Uretheral (Nguyen) 700 Other: Voiding Method Indwelling Catheter Indwelling Catheter Indwelling Catheter # Voids 1 1 - Exam Head exam was generally normal. There was no scleral icterus or corneal arcus. Mucous membranes were moist.Neck was supple and without jugular venous distension, thyromegaly, or carotid bruits. Carotids were easily palpable bilaterally. There was no adenopathy. Lung sounds are diminished bilaterally especially lung bases. Heart sounds are irregular, positive S1-S2, sternum is stable clean and intact, no significant murmurs appreciated.Abdominal exam revealed normal bowel sounds. The abdomen was soft, non-tender, and without masses, organomegaly, or appreciable enlargement of the abdominal aorta. Extremities are scaly and dry and there is trace edema along with some few areas of stage I ulceration without evidence of any cellulitis. The patient has onychomycosis. Neurologically, awake and alert and follows commands and answers questions appropriately. - Labs CBC & Chem 7: 11/24/16 06:36 11/24/16 06:36 Labs: Abnormal Lab Results - Last 24 Hours (Table) 11/23/16 11/24/16 11/24/16 Range/Units 20:36 06:08 06:36 RBC 2.30 L (4.30-5.90) m/uL Hgb 7.5 L (13.0-17.5) gm/dL Hct 23.2 L (39.0-53.0) % MCV 101.1 H (80.0-100.0) fL RDW 17.3 H (11.5-15.5) % Neutrophils # 8.3 H (1.3-7.7) k/uL Lymphocytes # 0.5 L (1.0-4.8) k/uL PT (9.0-12.0) sec Sodium (137-145) mmol/L BUN (9-20) mg/dL Glucose (74-99) mg/dL POC Glucose (mg/dL) 160 H 122 H (75-99) mg/dL Calcium (8.4-10.2) mg/dL 11/24/16 11/24/16 11/24/16 Range/Units 06:36 06:36 11:24 RBC (4.30-5.90) m/uL Hgb (13.0-17.5) gm/dL Hct (39.0-53.0) % MCV (80.0-100.0) fL RDW (11.5-15.5) % Neutrophils # (1.3-7.7) k/uL Lymphocytes # (1.0-4.8) k/uL PT 24.7 H (9.0-12.0) sec Sodium 135 L (137-145) mmol/L BUN 43 H (9-20) mg/dL Glucose 109 H (74-99) mg/dL POC Glucose (mg/dL) 117 H (75-99) mg/dL Calcium 7.7 L (8.4-10.2) mg/dL Microbiology - Last 24 Hours (Table) 11/22/16 16:00 Urine Culture - Final Urine,Catheterized Assessment and Plan Plan: Assessment 1 change in mental status, recovered and normalized. 2 traumatic Nguyen catheterization with evidence of obstructive uropathy. The patient is producing adequate amount of urine output at this point. Rule out underlying urinary tract infection. 3 acute kidney injury secondary to obstructive uropathy, improving with fluid resuscitation and flushing of the Nguyen catheter. Ultrasound the kidneys are to follow 4 coronary artery disease with previous bypass surgery 5 aortic valve replacement/tissue valve 6 chronic atrial fibrillation 7 supratherapeutic PT/INR, current INR 4.8. 8 cor pulmonale with right-sided heart failure with significantly elevated PA pressures maintained on Revatio. 9 chronic lower extremities edema along with stage I superficial ulceration 10 hyperlipidemia 11 hypothyroidism 12 hyperuricemia 13 osteoarthritis Plan: The patient was seen and evaluated by Dr. Ku. He is stable from the pulmonary. He is cleared for transfer to the extended care facility for continued inpatient rehabilitation..
== END 2016-11-24 15:22 | DRG 698 ==
LOC: EC 16:31 → 6ICU 18:12 → 6SEL 11-23 09:36
PROVIDERS: ADMIT Internal Medicine; ATTEND Internal Medicine
PROC: 30233N1 Transfusion of Nonautologous Red Blood Cells into Peripheral Vein, Percutaneous Approach (ICD-10-PCS; principal; 2016-11-21)
DX: T83.83XA Hemorrhage due to genitourinary prosthetic devices, implants and grafts, initial encounter (principal); J96.21 Acute and chronic respiratory failure with hypoxia; N17.9 Acute kidney failure, unspecified; I27.2 Other secondary pulmonary hypertension; D62 Acute posthemorrhagic anemia; I50.22 Chronic systolic (congestive) heart failure; N13.8 Other obstructive and reflux uropathy; I27.81 Cor pulmonale (chronic); J44.9 Chronic obstructive pulmonary disease, unspecified; I48.0 Paroxysmal atrial fibrillation; I83.008 Varicose veins of unspecified lower extremity with ulcer other part of lower leg; I07.1 Rheumatic tricuspid insufficiency; I25.10 Atherosclerotic heart disease of native coronary artery without angina pectoris; L30.9 Dermatitis, unspecified; N40.1 Benign prostatic hyperplasia with lower urinary tract symptoms; R33.8 Other retention of urine; M19.91 Primary osteoarthritis, unspecified site; M10.9 Gout, unspecified; E03.9 Hypothyroidism, unspecified; E78.5 Hyperlipidemia, unspecified; R79.1 Abnormal coagulation profile; T45.515A Adverse effect of anticoagulants, initial encounter; S72.91XD Unspecified fracture of right femur, subsequent encounter for closed fracture with routine healing; R41.82 Altered mental status, unspecified; K21.9 Gastro-esophageal reflux disease without esophagitis; Z99.81 Dependence on supplemental oxygen; Z95.3 Presence of xenogenic heart valve; Z95.1 Presence of aortocoronary bypass graft; Z96.653 Presence of artificial knee joint, bilateral; Z87.891 Personal history of nicotine dependence; Z79.51 Long term (current) use of inhaled steroids; Z79.01 Long term (current) use of anticoagulants; Z79.899 Other long term (current) drug therapy; Y84.6 Urinary catheterization as the cause of abnormal reaction of the patient, or of later complication, without mention of misadventure at the time of the procedure; Y92.129 Unspecified place in nursing home as the place of occurrence of the external cause; W19.XXXD Unspecified fall, subsequent encounter
CPT/HCPCS: 36415; 51702; 71010; 76770; 80048; 80053; 81001; 82550; 82553; 83036; 83735; 83880; 84100; 84484; 85025; 85610; 85730; 86850; 86870; 86880; 86900; 86901; 86920; 87040; 87086; 93005; 94640; 94660; 94760; 96360; 99284

== ENCOUNTER 2016-12-04 16:51 | Inpatient (IN) | payer MEDICARE ==
[2016-12-04] MEDS ORDERED: SODIUM CHLORIDE 0.9% 1,000 ML IV ONE (17:02)
--- NOTE | 2016-12-04 17:08 | ED ---
Altered Mental Status HPI - General Stated Complaint: Diff breathing Time Seen by Provider: 12/04/16 16:51 Source: patient, EMS, RN notes reviewed, old records reviewed Mode of arrival: EMS - History of Present Illness Initial Comments: This is a 76-year-old male history of multiple medical problems who was just recently admitted to the hospital this past month which brought in from a local [facility] for evaluation for altered mental status also a fever. He is reported have a fever of 101 today he's been very anxious over the last 2 days going out to people he does not want to was noted today also have a cough and difficulty breathing. He has chronic wounds on his lower extremities which apparently are popping and losing now the sores been there for about a week per history. Patient was given a nebulizer treatment in route by paramedics. He states he is feeling somewhat better. Is normally awake alert and oriented 3 today cyst 2. No other reported problems no injuries reported MD Complaint: altered mental status, other - Related Data Home Medications Medication Instructions Recorded Confirmed Acetaminophen Tab [Tylenol] 650 mg PO Q4H PRN 11/08/16 12/04/16 Allopurinol [Zyloprim] 100 mg PO BID 11/08/16 12/04/16 Amino Acids/Protein Hydrolys 30 ml PO DAILY 11/08/16 12/04/16 [Pro-Stat Supplement] Bisacodyl 10 mg RECTAL DAILY PRN 11/08/16 12/04/16 Fluticasone/Vilanterol [Breo 2 puff INHALATION RT-DAILY 11/08/16 12/04/16 Ellipta 100-25 Mcg Inhaler] Ipratropium-Albuterol Nebulize 3 ml INHALATION RT-Q8H PRN 11/08/16 12/04/16 [Duoneb 0.5 mg-3 mg/3 ml Soln] Levothyroxine Sodium [Synthroid] 137 mcg PO HS@199911/08/16 12/04/16 Melatonin 5 mg PO HS@199911/08/16 12/04/16 Omeprazole 20 mg PO HS@199911/08/16 12/04/16 Sennosides/Docusate Sodium 1 tab PO BID 11/08/16 12/04/16 [[place]-Colace Tablet] Tamsulosin [Flomax] 0.4 mg PO HS@199911/08/16 12/04/16 Tiotropium 18 Mcg/Puff [Spiriva] 1 cap INHALATION RT-DAILY 11/08/16 12/04/16 Lactulose [Cephulac] 20 gm PO DAILY PRN 11/20/16 12/04/16 Sildenafil [Revatio] 20 mg PO Q8H 11/21/16 12/04/16 ALPRAZolam [Xanax] 0.5 mg PO DAILY PRN 12/04/16 12/04/16 Atorvastatin [Lipitor] 40 mg PO HS@199912/04/16 12/04/16 Finasteride [Proscar] 5 mg PO HS 12/04/16 12/04/16 Furosemide [Lasix] 40 mg PO BID 12/04/16 12/04/16 Previous Rx's Medication Instructions Recorded Warfarin Sodium [Coumadin] 4 mg PO HS #30 tablet 11/24/16 Allergies Allergy/AdvReac Type Severity Reaction Status Date / Time No Known Allergies Allergy Verified 12/04/16 17:12 Review of Systems ROS Statement: Those systems with pertinent positive or pertinent negative responses have been documented in the HPI. ROS Other: All systems not noted in ROS Statement are negative. 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, severe pulmonary hypertension with a PA pressure of 84 with preserved LV function/right-sided heart failure, degenerative arthritis , hypothyroidism, hyperuricemia/gout, hyperlipidemia History of Any Multi-Drug Resistant Organisms: None Reported Past Surgical History: Cardiac Valve Replacement, Coronary Bypass/CABG, Joint Replacement, Orthopedic Surgery Additional Past Surgical History / Comment(s): CABG, tyhyroidectomy, pig valve replacement (Aortic), bilateral knee replacement, rt femur surgery Procedure on Mitral Valve Past Anesthesia/Blood Transfusion Reactions: No Reported Reaction Past Psychological History: No Psychological Hx Reported Smoking Status: Former smoker Past Alcohol Use History: Daily Past Drug Use History: None Reported - Past Family History Mother Family Medical History: Cancer General Exam - General Exam Comments Initial Comments: Is a well-developed well-nourished awake male he is actively receiving a nebulizer treatment General appearance: alert, lethargic Head exam: Present: atraumatic, normocephalic, normal inspection Eye exam: Present: normal appearance, PERRL, EOMI. Absent: scleral icterus, conjunctival injection, periorbital swelling ENT exam: Present: mucous membranes dry Neck exam: Present: normal inspection. Absent: tenderness, meningismus, lymphadenopathy Respiratory exam: Present: decreased breath sounds. Absent: respiratory distress, wheezes, rales, rhonchi, stridor Cardiovascular Exam: Present: irregular rhythm. Absent: systolic murmur, diastolic murmur, rubs, gallop, clicks GI/Abdominal exam: Present: soft, normal bowel sounds. Absent: distended, tenderness, guarding, rebound, rigid Extremities exam: Present: full ROM, normal capillary refill, pedal edema, other (She does demonstrate pedal edema is got wound dressings on at this time) . Absent: tenderness, joint swelling, calf tenderness Back exam: Present: normal inspection Neurological exam: Present: alert, altered, oriented X3 ( acute chart as having eaten breakfast or lunch today secondary to get some before), CN II-XII intact Psychiatric exam: Present: normal affect, normal mood Skin exam: Present: warm, dry, intact. Absent: rash Course Vital Signs 12/04/16 12/04/16 12/04/16 17:14 18:09 19:06 Temperature 101.4 F H Pulse Rate 107 H 102 H 100 Respiratory 22 25 H 20 Rate Blood Pressure 109/55 119/76 101/50 O2 Sat by Pulse 84 L 94 L 93 L Oximetry - Reevaluation(s) Reevaluation #1: 12/04/16 19:43 Patient did get some improvement after the initial treatment. Reevaluation #2: 12/04/16 19:43 I did discuss findings with the patient family. Patient will be admitted for treatment of COPD exacerbation and pneumonia. He also hypokalemia hypomagnesemia. Medical Decision Making - Lab Data Result diagrams: 12/04/16 17:25 12/04/16 17:25 Lab Results 12/04/16 12/04/16 12/04/16 Range/Units 17:25 17:25 17:25 WBC 27.8 H* (3.8-10.6) k/uL RBC 2.58 L (4.30-5.90) m/uL Hgb 7.7 L (13.0-17.5) gm/dL Hct 25.5 L (39.0-53.0) % MCV 98.7 D (80.0-100.0) fL MCH 29.8 (25.0-35.0) pg MCHC 30.2 L (31.0-37.0) g/dL RDW 17.0 H (11.5-15.5) % Plt Count 284 (150-450) k/uL Neutrophils % (Manual) 90.0 % Band Neutrophils % 3.0 % Lymphocytes % (Manual) 3.0 % Monocytes % (Manual) 3.0 % Eosinophils % (Manual) 1.0 % Neutrophils # (Manual) 25.9 H (1.3-7.7) k/uL Lymphocytes # (Manual) 0.8 L (1.0-4.8) k/uL Monocytes # (Manual) 0.8 (0-1.0) k/uL Eosinophils # (Manual) 0.3 (0-0.7) k/uL Nucleated RBCs 0 (0-0) /100 WBC Manual Slide Review Performed Polychromasia Present Hypochromasia Marked Poikilocytosis Moderate Anisocytosis Slight Macrocytosis Slight Stomatocytes Present Crenated Cell Present PT (9.0-12.0) sec INR (<1.1) APTT (22.0-30.0) sec Sodium (137-145) mmol/L Potassium (3.5-5.1) mmol/L Chloride (98-107) mmol/L Carbon Dioxide (22-30) mmol/L Anion Gap mmol/L BUN (9-20) mg/dL Creatinine (0.66-1.25) mg/dL Est GFR (MDRD) Af Amer (>60 ml/min/1.73 sqM) Est GFR (MDRD) Non-Af (>60 ml/min/1.73 sqM) Glucose (74-99) mg/dL Plasma Lactic Acid Minh 1.8 (0.7-2.0) mmol/L Calcium (8.4-10.2) mg/dL Magnesium (1.6-2.3) mg/dL Total Bilirubin (0.2-1.3) mg/dL AST (17-59) U/L ALT (21-72) U/L Alkaline Phosphatase (38-126) U/L Ammonia 32 H (<30) umol/L Total Creatine Kinase 27 L (55-170) U/L CK-MB (CK-2) 0.8 (0.0-2.4) ng/mL CK-MB (CK-2) Rel Index 3.0 Troponin I 0.028 (0.000-0.034) ng/mL Total Protein (6.3-8.2) g/dL Albumin (3.5-5.0) g/dL Urine Color Urine Appearance (Clear) Urine pH (5.0-8.0) Ur Specific [place] (1.001-1.035) Urine Protein (Negative) Urine Glucose (UA) (Negative) Urine Ketones (Negative) Urine Blood (Negative) Urine Nitrite (Negative) Urine Bilirubin (Negative) Urine Urobilinogen (<2.0) mg/dL Ur Leukocyte Esterase (Negative) Urine RBC (0-5) /hpf Urine WBC (0-5) /hpf Urine WBC Clumps (None) /hpf Urine Mucus (None) /hpf Urine Opiates Screen (NotDetected) Ur Oxycodone Screen (NotDetected) Urine Methadone Screen (NotDetected) Ur Propoxyphene Screen (NotDetected) Ur Barbiturates Screen (NotDetected) U Tricyclic Antidepress (NotDetected) Ur Phencyclidine Scrn (NotDetected) Ur Amphetamines Screen (NotDetected) U Methamphetamines Scrn (NotDetected) U Benzodiazepines Scrn (NotDetected) Urine Cocaine Screen (NotDetected) U Marijuana (THC) Screen (NotDetected) 12/04/16 12/04/16 12/04/16 Range/Units 17:25 17:25 17:25 WBC (3.8-10.6) k/uL RBC (4.30-5.90) m/uL Hgb (13.0-17.5) gm/dL Hct (39.0-53.0) % MCV (80.0-100.0) fL MCH (25.0-35.0) pg MCHC (31.0-37.0) g/dL RDW (11.5-15.5) % Plt Count (150-450) k/uL Neutrophils % (Manual) % Band Neutrophils % % Lymphocytes % (Manual) % Monocytes % (Manual) % Eosinophils % (Manual) % Neutrophils # (Manual) (1.3-7.7) k/uL Lymphocytes # (Manual) (1.0-4.8) k/uL Monocytes # (Manual) (0-1.0) k/uL Eosinophils # (Manual) (0-0.7) k/uL Nucleated RBCs (0-0) /100 WBC Manual Slide Review Polychromasia Hypochromasia Poikilocytosis Anisocytosis Macrocytosis Stomatocytes Crenated Cell PT 22.0 H (9.0-12.0) sec INR 2.3 (<1.1) APTT 31.1 H (22.0-30.0) sec Sodium 138 (137-145) mmol/L Potassium 2.9 L* (3.5-5.1) mmol/L Chloride 98 (98-107) mmol/L Carbon Dioxide 31 H (22-30) mmol/L Anion Gap 9 mmol/L BUN 26 H (9-20) mg/dL Creatinine 1.05 (0.66-1.25) mg/dL Est GFR (MDRD) Af Amer >60 (>60 ml/min/1.73 sqM) Est GFR (MDRD) Non-Af >60 (>60 ml/min/1.73 sqM) Glucose 104 H (74-99) mg/dL Plasma Lactic Acid Minh (0.7-2.0) mmol/L Calcium 8.0 L (8.4-10.2) mg/dL Magnesium 1.4 L (1.6-2.3) mg/dL Total Bilirubin 1.0 (0.2-1.3) mg/dL AST 31 (17-59) U/L ALT 33 (21-72) U/L Alkaline Phosphatase 126 (38-126) U/L Ammonia (<30) umol/L Total Creatine Kinase (55-170) U/L CK-MB (CK-2) (0.0-2.4) ng/mL CK-MB (CK-2) Rel Index Troponin I (0.000-0.034) ng/mL Total Protein 6.6 (6.3-8.2) g/dL Albumin 3.0 L (3.5-5.0) g/dL Urine Color Light Brown Urine Appearance Turbid (Clear) Urine pH 6.5 (5.0-8.0) Ur Specific [place] 1.017 (1.001-1.035) Urine Protein 3+ H (Negative) Urine Glucose (UA) Negative (Negative) Urine Ketones Negative (Negative) Urine Blood Large H (Negative) Urine Nitrite Negative (Negative) Urine Bilirubin Negative (Negative) Urine Urobilinogen 2.0 (<2.0) mg/dL Ur Leukocyte Esterase Large H (Negative) Urine RBC >182 H (0-5) /hpf Urine WBC >182 H (0-5) /hpf Urine WBC Clumps Many H (None) /hpf Urine Mucus Few H (None) /hpf Urine Opiates Screen Detected H (NotDetected) Ur Oxycodone Screen Not Detected (NotDetected) Urine Methadone Screen Not Detected (NotDetected) Ur Propoxyphene Screen Not Detected (NotDetected) Ur Barbiturates Screen Not Detected (NotDetected) U Tricyclic Antidepress Not Detected (NotDetected) Ur Phencyclidine Scrn Not Detected (NotDetected) Ur Amphetamines Screen Not Detected (NotDetected) U Methamphetamines Scrn Not Detected (NotDetected) U Benzodiazepines Scrn Detected H (NotDetected) Urine Cocaine Screen Not Detected (NotDetected) U Marijuana (THC) Screen Not Detected (NotDetected) Critical Care Time Critical Care Time: Yes Critical Care Time: 31 minutes of critical care time which includes initial presentation with monitoring the EMS run and discussed with paramedics history physical lab and x- rays. Reevaluation patient several occasions for responsive therapy. Discussed with the patient family regarding the findings. Discussion with the admitting physician review of old charting. Admission orders and documentation the above. Disposition Clinical Impression: Pneumonia, Respiratory distress, acute, Hypokalemia, Hypomagnesemia syndrome, Febrile illness, acute, Anemia, Chronic obstructive pulmonary disease (COPD) Disposition: ADMITTED IP TO THIS [facility] Condition: Stable
[2016-12-04] MEDS ORDERED: ACETAMINOPHEN IV (For NPO) 1,000 MG in EMPTY BAG 1 BAG IVPB STA (17:32)
[2016-12-04 17:37] LABS: Anisocytosis Slight; CH 29.7; CHCM 30.1; HCT 25.5 % (39.0-53.0); HGB 7.7 gm/dL (13.0-17.5); Hypochromasia Marked; MCH 29.8 pg (25.0-35.0); MCHC 30.2 g/dL (31.0-37.0); Macrocytosis Slight; Mean Platelet Volume 7.6; Poikilocytosis Moderate; RBC 2.58 m/uL (4.30-5.90); WBC (Perox) 28.18
[2016-12-04 17:45] LABS: WBC 27.8 k/uL (3.8-10.6)
[2016-12-04 17:46] LABS: MCV 98.7 fL (80.0-100.0)
--- NOTE | 2016-12-04 17:47 | XR ---
EXAMINATION TYPE: XR chest 1V portable DATE OF EXAM: 12/04/2016 5:35 PM COMPARISON: 11/24/2016 INDICATION: Altered mental status difficulty breathing TECHNIQUE: Single frontal view of the chest is obtained. FINDINGS: The heart size is borderline prominent. The pulmonary vasculature is normal. There are scattered diffuse increased lung markings in the left lower lobe consolidation above the le ft diaphragm. Correlate for pneumonia and atelectasis . New appearing multiple right-sided rib fractures. The lung apex is obscured by the mandible. IMPRESSION: 1. Clinical correlation recommended for left lower lobe pneumonia. 2. Some mild scattered subsegmental atelectasis may be present. 3. Right upper chest rib fractures. Exam is limited for evaluation for a small pneumothorax.
[2016-12-04 17:50] LABS: Appearance,Urine Turbid (Clear); Bilirubin,Urine Negative (Negative); Glucose,Urine (UA) Negative (Negative); Ketones,Urine Negative (Negative); Leukocyte Esterase,Urine Large (Negative); Mucus,Urine Few /hpf; Nitrite,Urine Negative (Negative); PH, Urine 6.5 (5.0-8.0); Particle Count 44130; Protein,Urine 3+ (Negative); RBC,Urine >182 /hpf (0-5); Specific Gravity,Urine 1.017 (1.001-1.035); UA Billing (MACRO vs. MICRO) MICRO; WBC,Urine >182 /hpf (0-5)
[2016-12-04 17:54] LABS: INR 2.3 (<1.1); Partial Thromboplastin Time 31.1 sec (22.0-30.0)
[2016-12-04 17:58] LABS: Add Differential Manual Differential
[2016-12-04 18:00] LABS: Nucleated Red Blood Cells 0 /100 WBC (0-0); Total Cells Counted 100
[2016-12-04 18:01] LABS: Crenated RBC Present; Manual Review Performed; Polychromasia Present; Stomatocytes Present
[2016-12-04 18:04] LABS: ALT 33 U/L (21-72); AST 31 U/L (17-59); Alkaline Phosphatase 126 U/L (38-126); Anion Gap 9 mmol/L; Blood Urea Nitrogen 26 mg/dL (9-20); Carbon Dioxide 31 mmol/L (22-30); Chloride 98 mmol/L (98-107); Glucose 104 mg/dL (74-99); Magnesium 1.4 mg/dL (1.6-2.3); Non-African American GFR(MDRD) >60 (>60 ml/min/1.73 sqM); Sodium 138 mmol/L (137-145); Total Protein 6.6 g/dL (6.3-8.2)
[2016-12-04 18:20] LABS: Potassium 2.9 mmol/L (3.5-5.1)
[2016-12-04 18:23] LABS: Creatine Kinase MB 0.8 ng/mL (0.0-2.4); Troponin I 0.028 ng/mL (0.000-0.034)
--- NOTE | 2016-12-04 18:45 | CT ---
EXAMINATION TYPE: CT brain wo con DATE OF EXAM: 12/04/2016 6:26 PM COMPARISON: NONE INDICATION: Decreased mental status DLP: 2997.8 mGycm, Automated exposure control for dose reduction was used. CONTRAST: None CT of the brain is performed utilizing 3 mm thick sections through the posterior fossa and 3 mm thick sections through the remaining calvarium. Study is performed within 24 hours of arrival to the hosp ital. No abnormal hyperdensity is present to suggest an acute intracranial hemorrhage. No mass lesion is evident. No acute infarcts are evident. Periventricular white matter hypodensity is present compatible with wh ite matter ischemic changes. There is low density through the watershed region. Subacute or old water shed infarct be considered. No significant fixed vacuo effect is evident. No effacement of the sulci is evident. Ventricles and sulci are slightly prominent for the patient age. Paranasal sinuses and mastoid air cells within the [id number] are clear. IMPRESSIONS: 1. 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 An acute change is not identified. 2. Atrophy with periventricular white matter ischemic changes
[2016-12-04] MEDS ORDERED: LORazepam 2 MG/ML SYRINGE IV STA (19:03)
[2016-12-04] MEDS ORDERED: LEVOFLOXACIN 750MG-D5W PMX 750 MG in DEXTROSE/WATER 1 150ML.BAG IVPB STA (19:27)
[2016-12-04] MEDS ORDERED: PNEUMONIA PROTOCOL UTILIZED 1 EACH MISC PO PRN (19:47)
[2016-12-04] MEDS ORDERED: BISACODYL 10 MG SUPP RECTAL PRN (19:51)
[2016-12-04] MEDS ORDERED: ALPRAZolam 0.5 MG TAB PO PRN (19:51)
[2016-12-04] MEDS ORDERED: LACTULOSE 20 GM/30 ML CUP PO PRN (19:51)
--- NOTE | 2016-12-04 19:53 | ED ---
Medical Decision Making - Lab Data Result diagrams: 12/04/16 17:25 12/04/16 17:25 Lab Results 12/04/16 12/04/16 12/04/16 Range/Units 17:25 17:25 17:25 WBC 27.8 H* (3.8-10.6) k/uL RBC 2.58 L (4.30-5.90) m/uL Hgb 7.7 L (13.0-17.5) gm/dL Hct 25.5 L (39.0-53.0) % MCV 98.7 D (80.0-100.0) fL MCH 29.8 (25.0-35.0) pg MCHC 30.2 L (31.0-37.0) g/dL RDW 17.0 H (11.5-15.5) % Plt Count 284 (150-450) k/uL Neutrophils % (Manual) 90.0 % Band Neutrophils % 3.0 % Lymphocytes % (Manual) 3.0 % Monocytes % (Manual) 3.0 % Eosinophils % (Manual) 1.0 % Neutrophils # (Manual) 25.9 H (1.3-7.7) k/uL Lymphocytes # (Manual) 0.8 L (1.0-4.8) k/uL Monocytes # (Manual) 0.8 (0-1.0) k/uL Eosinophils # (Manual) 0.3 (0-0.7) k/uL Nucleated RBCs 0 (0-0) /100 WBC Manual Slide Review Performed Polychromasia Present Hypochromasia Marked Poikilocytosis Moderate Anisocytosis Slight Macrocytosis Slight Stomatocytes Present Crenated Cell Present PT (9.0-12.0) sec INR (<1.1) APTT (22.0-30.0) sec Sodium (137-145) mmol/L Potassium (3.5-5.1) mmol/L Chloride (98-107) mmol/L Carbon Dioxide (22-30) mmol/L Anion Gap mmol/L BUN (9-20) mg/dL Creatinine (0.66-1.25) mg/dL Est GFR (MDRD) Af Amer (>60 ml/min/1.73 sqM) Est GFR (MDRD) Non-Af (>60 ml/min/1.73 sqM) Glucose (74-99) mg/dL Plasma Lactic Acid Minh 1.8 (0.7-2.0) mmol/L Calcium (8.4-10.2) mg/dL Magnesium (1.6-2.3) mg/dL Total Bilirubin (0.2-1.3) mg/dL AST (17-59) U/L ALT (21-72) U/L Alkaline Phosphatase (38-126) U/L Ammonia 32 H (<30) umol/L Total Creatine Kinase 27 L (55-170) U/L CK-MB (CK-2) 0.8 (0.0-2.4) ng/mL CK-MB (CK-2) Rel Index 3.0 Troponin I 0.028 (0.000-0.034) ng/mL Total Protein (6.3-8.2) g/dL Albumin (3.5-5.0) g/dL Urine Color Urine Appearance (Clear) Urine pH (5.0-8.0) Ur Specific [place] (1.001-1.035) Urine Protein (Negative) Urine Glucose (UA) (Negative) Urine Ketones (Negative) Urine Blood (Negative) Urine Nitrite (Negative) Urine Bilirubin (Negative) Urine Urobilinogen (<2.0) mg/dL Ur Leukocyte Esterase (Negative) Urine RBC (0-5) /hpf Urine WBC (0-5) /hpf Urine WBC Clumps (None) /hpf Urine Mucus (None) /hpf Urine Opiates Screen (NotDetected) Ur Oxycodone Screen (NotDetected) Urine Methadone Screen (NotDetected) Ur Propoxyphene Screen (NotDetected) Ur Barbiturates Screen (NotDetected) U Tricyclic Antidepress (NotDetected) Ur Phencyclidine Scrn (NotDetected) Ur Amphetamines Screen (NotDetected) U Methamphetamines Scrn (NotDetected) U Benzodiazepines Scrn (NotDetected) Urine Cocaine Screen (NotDetected) U Marijuana (THC) Screen (NotDetected) 12/04/16 12/04/16 12/04/16 Range/Units 17:25 17:25 17:25 WBC (3.8-10.6) k/uL RBC (4.30-5.90) m/uL Hgb (13.0-17.5) gm/dL Hct (39.0-53.0) % MCV (80.0-100.0) fL MCH (25.0-35.0) pg MCHC (31.0-37.0) g/dL RDW (11.5-15.5) % Plt Count (150-450) k/uL Neutrophils % (Manual) % Band Neutrophils % % Lymphocytes % (Manual) % Monocytes % (Manual) % Eosinophils % (Manual) % Neutrophils # (Manual) (1.3-7.7) k/uL Lymphocytes # (Manual) (1.0-4.8) k/uL Monocytes # (Manual) (0-1.0) k/uL Eosinophils # (Manual) (0-0.7) k/uL Nucleated RBCs (0-0) /100 WBC Manual Slide Review Polychromasia Hypochromasia Poikilocytosis Anisocytosis Macrocytosis Stomatocytes Crenated Cell PT 22.0 H (9.0-12.0) sec INR 2.3 (<1.1) APTT 31.1 H (22.0-30.0) sec Sodium 138 (137-145) mmol/L Potassium 2.9 L* (3.5-5.1) mmol/L Chloride 98 (98-107) mmol/L Carbon Dioxide 31 H (22-30) mmol/L Anion Gap 9 mmol/L BUN 26 H (9-20) mg/dL Creatinine 1.05 (0.66-1.25) mg/dL Est GFR (MDRD) Af Amer >60 (>60 ml/min/1.73 sqM) Est GFR (MDRD) Non-Af >60 (>60 ml/min/1.73 sqM) Glucose 104 H (74-99) mg/dL Plasma Lactic Acid Minh (0.7-2.0) mmol/L Calcium 8.0 L (8.4-10.2) mg/dL Magnesium 1.4 L (1.6-2.3) mg/dL Total Bilirubin 1.0 (0.2-1.3) mg/dL AST 31 (17-59) U/L ALT 33 (21-72) U/L Alkaline Phosphatase 126 (38-126) U/L Ammonia (<30) umol/L Total Creatine Kinase (55-170) U/L CK-MB (CK-2) (0.0-2.4) ng/mL CK-MB (CK-2) Rel Index Troponin I (0.000-0.034) ng/mL Total Protein 6.6 (6.3-8.2) g/dL Albumin 3.0 L (3.5-5.0) g/dL Urine Color Light Brown Urine Appearance Turbid (Clear) Urine pH 6.5 (5.0-8.0) Ur Specific [place] 1.017 (1.001-1.035) Urine Protein 3+ H (Negative) Urine Glucose (UA) Negative (Negative) Urine Ketones Negative (Negative) Urine Blood Large H (Negative) Urine Nitrite Negative (Negative) Urine Bilirubin Negative (Negative) Urine Urobilinogen 2.0 (<2.0) mg/dL Ur Leukocyte Esterase Large H (Negative) Urine RBC >182 H (0-5) /hpf Urine WBC >182 H (0-5) /hpf Urine WBC Clumps Many H (None) /hpf Urine Mucus Few H (None) /hpf Urine Opiates Screen Detected H (NotDetected) Ur Oxycodone Screen Not Detected (NotDetected) Urine Methadone Screen Not Detected (NotDetected) Ur Propoxyphene Screen Not Detected (NotDetected) Ur Barbiturates Screen Not Detected (NotDetected) U Tricyclic Antidepress Not Detected (NotDetected) Ur Phencyclidine Scrn Not Detected (NotDetected) Ur Amphetamines Screen Not Detected (NotDetected) U Methamphetamines Scrn Not Detected (NotDetected) U Benzodiazepines Scrn Detected H (NotDetected) Urine Cocaine Screen Not Detected (NotDetected) U Marijuana (THC) Screen Not Detected (NotDetected) - EKG Data -: EKG Interpreted by Me (Heart rate was 95 QRS 116 daily since QTC of 398/500 evidence a left exodev) Disposition Clinical Impression: Pneumonia, Respiratory distress, acute, Hypokalemia, Hypomagnesemia syndrome, Febrile illness, acute, Anemia, Chronic obstructive pulmonary disease (COPD) Disposition: ADMITTED IP TO THIS [facility] Condition: Stable Referrals: Yeni Nazario MD [Primary Care Provider] - 1-2 days Decision Time: 18:45
[2016-12-04] MEDS: MAGNESIUM SULFATE-D5W PMX 1 GM in DEXTROSE/WATER 1 100ML.BAG IVPB SCH (20:01)
[2016-12-04] MEDS ORDERED: SODIUM CHLORIDE 0.9% (DEHP FRE 500 ML IV ONE (20:06)
[2016-12-04] MEDS: IPRATROPIUM-ALBUTEROL 3 ML NEB INHALATION SCH ×2 (20:54→23:40)
[2016-12-04] MEDS: ATORVASTATIN 40 MG TAB PO SCH (22:05)
[2016-12-04] MEDS: LEVOTHYROXINE 137 MCG TAB PO SCH (22:05)
[2016-12-04] MEDS: POTASSIUM CHLORIDE 20 MEQ, LIDOCAINE 2% INJ 20 MG in SODIUM CHLORIDE 0.9% 100 ML IVPB SCH (22:05)
[2016-12-04] MEDS: MELATONIN 5 MG TABLET PO SCH (22:05)
[2016-12-04] MEDS: FINASTERIDE 5 MG TAB PO SCH (22:06)
[2016-12-04] MEDS: SENNOSIDES-DOCUSATE SODIUM 1 EACH TAB PO SCH (22:06)
[2016-12-04] MEDS: FUROSEMIDE 40 MG TAB PO SCH (22:06)
[2016-12-04] MEDS: PANTOPRAZOLE 40 MG TABLET PO SCH (22:06)
[2016-12-04] MEDS: ALLOPURINOL 100 MG TAB PO SCH (22:06)
[2016-12-04] MEDS: SILDENAFIL 20 MG TAB PO SCH (22:07)
[2016-12-04] MEDS: WARFARIN 2 MG TAB PO SCH (22:07)
[2016-12-04] MEDS: TAMSULOSIN 0.4 MG CAP.ER.24H PO SCH (22:07)
[2016-12-04 22:39] VITALS: BMI 32.4
[2016-12-04] MEDS: SODIUM CHLORIDE 0.9% 1,000 ML IV SCH (23:39)
[2016-12-04] MEDS: methylPREDNISolone SOD SUCCI 125 MG/2 ML VIAL IV SCH (23:40)
[2016-12-04] MEDS: PIPERACILLIN-TAZOBACTAM 3.375 GM in DEXTROSE/WATER 1 50ML.BAG IVPB SCH (23:41)
[2016-12-05] MEDS: POTASSIUM CHLORIDE 20 MEQ, LIDOCAINE 2% INJ 20 MG in SODIUM CHLORIDE 0.9% 100 ML IVPB SCH (00:36)
[2016-12-05] MEDS: MAGNESIUM SULFATE-D5W PMX 1 GM in DEXTROSE/WATER 1 100ML.BAG IVPB SCH (02:53)
[2016-12-05] MEDS: IPRATROPIUM-ALBUTEROL 3 ML NEB INHALATION SCH ×5 (03:39→19:59)
[2016-12-05] MEDS: methylPREDNISolone SOD SUCCI 125 MG/2 ML VIAL IV SCH ×4 (06:24→23:32)
[2016-12-05] MEDS: SILDENAFIL 20 MG TAB PO SCH ×3 (06:24→20:26)
[2016-12-05 06:25] LABS: Glucose,Whole Blood 147 mg/dL (75-99)
[2016-12-05] MEDS: INSULIN LISPRO (humaLOG) 300 UNIT/3 ML VIAL SQ SCH ×4 (06:28→22:08)
[2016-12-05 07:39] LABS: INR 2.6 (<1.1); Prothrombin Time 25.3 sec (9.0-12.0)
[2016-12-05 07:56] LABS: Anion Gap 11 mmol/L; Blood Urea Nitrogen 26 mg/dL (9-20); Calcium 7.6 mg/dL (8.4-10.2); Carbon Dioxide 28 mmol/L (22-30); Chloride 100 mmol/L (98-107); Glucose 121 mg/dL (74-99); Magnesium 1.8 mg/dL (1.6-2.3); Non-African American GFR(MDRD) >60 (>60 ml/min/1.73 sqM); Potassium 3.7 mmol/L (3.5-5.1); Sodium 139 mmol/L (137-145)
[2016-12-05] MEDS ORDERED: TIOTROPIUM 18 MCG/PUFF INHALER INHALATION SCH (08:00)
[2016-12-05] MEDS: PIPERACILLIN-TAZOBACTAM 3.375 GM in DEXTROSE/WATER 1 50ML.BAG IVPB SCH ×3 (08:21→23:32)
[2016-12-05] MEDS ORDERED: NON-FORMULARY DRUG (Amino Acids/Protein Hydrolys [Pro-Stat Supplement] 30 ML) PO SCH (09:00)
--- NOTE | 2016-12-05 09:04 | XR ---
EXAMINATION TYPE: XR chest 2V DATE OF EXAM: 12/05/2016 8:45 AM COMPARISON: 12/04/2016 HISTORY: Pneumonia TECHNIQUE: Frontal and lateral views of the chest are obtained. FINDINGS: There is new mild pulmonary vascular congestion and redemonstration of diffuse interstitia l prominence. Retrocardiac airspace disease again silhouettes the left hemidiaphragm. Costophrenic an gles are obscured. Cardiomediastinal silhouette is enlarged. Postsurgical changes are again seen of t he chest. Multiple right-sided rib fractures are redemonstrated. Lung apices are again obscured by th e patient's chin. IMPRESSION: Findings most compatible with decompensated congestive heart failure with small pleural effusions, ne w pulmonary vascular congestion, cardiomegaly, and interstitial pulmonary edema.
--- NOTE | 2016-12-05 09:51 | P.HPIM ---
History of Present Illness H&P Date: 12/05/16 Chief Complaint: Febrile illness Patient is a 76-year-old male who was admitted to shelter for rehabilitation after recent hospitalization was started having fever, cough, mental status changes and worsening shortness of breath, he was transferred to [facility] emergency room, where he was evaluated and was admitted to telemetry floor. Initial evaluation revealed evidence of leukocytosis with white blood count at 27.8, electrolyte imbalance, temperature on presentation was 101.4 heart rate 107 blood pressure 109/55, patient also had anemia with hemoglobin of 7.7, urine analysis revealed evidence of urinary tract infection, chest x-ray revealed evidence of left lower lobe infiltrate suggestive of pneumonia, he was started on IV Levaquin and IV Zosyn and was admitted to telemetry floor. Patient had 2 recent admissions to [facility] he was admitted on 11/21/2016 for gross hematuria he was evaluated by urology at that time. Prior to that he was admitted on 11/08/2016 with shortness of breath and was diagnosed with severe pulmonary hypertension and bilateral lower extremity cellulitis. Past medical history significant for #1 history of systolic congestive heart failure, with ejection fraction of 45% on recent echocardiogram #2 history of pulmonary hypertension patient was recently started on sildenafil #3 paroxysmal atrial fibrillation maintained on Coumadin INR was therapeutic on presentation #4 underlying history of COPD #5 underlying history of chronic hypoxic respiratory failure maintained on home oxygen 2 L via nasal cannula #6 chronic obstructive uropathy patient has indwelling Nguyen catheter #7 history of bilateral lower extremity cellulitis #8 recent fall and the right hip fracture with intramedullary jovita placement in [place] about 2 months ago #9 physical debility patient was admitted to shelter for rehabilitation 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, severe pulmonary hypertension with a PA pressure of 84 with preserved LV function/right-sided heart failure, degenerative arthritis , hypothyroidism, hyperuricemia/gout, hyperlipidemia History of Any Multi-Drug Resistant Organisms: None Reported Past Surgical History: Cardiac Valve Replacement, Coronary Bypass/CABG, Joint Replacement, Orthopedic Surgery Additional Past Surgical History / Comment(s): CABG, tyhyroidectomy, pig valve replacement (Aortic), bilateral knee replacement, rt femur surgery Procedure on Mitral Valve Past Anesthesia/Blood Transfusion Reactions: No Reported Reaction Past Psychological History: No Psychological Hx Reported Smoking Status: Former smoker Past Alcohol Use History: Daily Past Drug Use History: None Reported - Past Family History Mother Family Medical History: Cancer Medications and Allergies Home Medications Medication Instructions Recorded Confirmed Type Acetaminophen Tab [Tylenol] 650 mg PO Q4H PRN 11/08/16 12/04/16 History Allopurinol [Zyloprim] 100 mg PO BID 11/08/16 12/04/16 History Amino Acids/Protein Hydrolys 30 ml PO DAILY 11/08/16 12/04/16 History [Pro-Stat Supplement] Bisacodyl 10 mg RECTAL DAILY PRN 11/08/16 12/04/16 History Fluticasone/Vilanterol [Breo 2 puff INHALATION RT-DAILY 11/08/16 12/04/16 History Ellipta 100-25 Mcg Inhaler] Ipratropium-Albuterol Nebulize 3 ml INHALATION RT-Q8H PRN 11/08/16 12/04/16 History [Duoneb 0.5 mg-3 mg/3 ml Soln] Levothyroxine Sodium [Synthroid] 137 mcg PO HS@199911/08/16 12/04/16 History Melatonin 5 mg PO HS@199911/08/16 12/04/16 History Omeprazole 20 mg PO HS@199911/08/16 12/04/16 History Sennosides/Docusate Sodium 1 tab PO BID 11/08/16 12/04/16 History [[place]-Colace Tablet] Tamsulosin [Flomax] 0.4 mg PO HS@199911/08/16 12/04/16 History Tiotropium 18 Mcg/Puff [Spiriva] 1 cap INHALATION RT-DAILY 11/08/16 12/04/16 History Lactulose [Cephulac] 20 gm PO DAILY PRN 11/20/16 12/04/16 History Sildenafil [Revatio] 20 mg PO Q8H 11/21/16 12/04/16 History ALPRAZolam [Xanax] 0.5 mg PO DAILY PRN 12/04/16 12/04/16 History Atorvastatin [Lipitor] 40 mg PO HS@199912/04/16 12/04/16 History Finasteride [Proscar] 5 mg PO HS 12/04/16 12/04/16 History Furosemide [Lasix] 40 mg PO BID 12/04/16 12/04/16 History Allergies Allergy/AdvReac Type Severity Reaction Status Date / Time No Known Allergies Allergy Verified 12/04/16 17:12 Physical Exam Vitals: Vital Signs Temp Pulse Pulse Resp BP BP Pulse Ox 12/05/16 04:00 97.2 F L 73 18 111/67 97 12/05/16 03:52 77 12/05/16 03:39 81 12/05/16 00:00 92 18 12/04/16 23:57 82 12/04/16 23:41 82 12/04/16 23:25 97.2 F L 18 104/59 99 12/04/16 21:13 92 24 12/04/16 20:35 98.4 F 96 18 101/55 96 12/04/16 20:16 97.7 F 92 24 93/52 96 12/04/16 20:00 92 20 100/52 94 L Intake and Output 12/04/16 12/05/16 12/05/16 22:59 06:59 14:59 Intake Total 300 250 Balance 300 250 Intake: IV 200 Sodium Chloride 0.9% 1, 200 000 ml @ 100 mls/hr IV . Q10H [facility] Rx#:[id number] Intake, IV Titration 100 250 Amount Magnesium Sulfate-D5w Pmx 100 1 gm In Dextrose/Water 1 100ml.bag @ 100 mls/hr IVPB Q1H [facility] Rx#: [id number] Piperacillin-Tazobactam 3 50 .375 gm In Dextrose/Water 1 50ml.bag @ 12.5 mls/hr IVPB Q8HR [facility] Rx#: [id number] Potassium Chloride 20 meq 100 100 Lidocaine 2% Inj 20 mg In Sodium Chloride 0.9% 100 ml @ 55.5 mls/hr IVPB Q2H [facility] Rx#:[id number] Other: Voiding Method Indwelling Catheter Indwelling Catheter Weight 105.5 kg 106.5 kg In general patient is alert and oriented in no apparent distress HEENT head normocephalic and atraumatic Neck is supple no JVD no goiter no lymphadenopathy no carotid bruit Chest exam reveals coarse crackles in both lung bender no wheezing Cardiac exam reveals irregular heart sounds S1 and S2 no gallops no murmurs Abdomen is soft nontender no organomegaly with normal bowel sounds Extremity exam reveals erythema in bilateral pretibial areas, no cyanosis or clubbing Neurological examination reveals no gross focal deficit Results CBC & Chem 7: 12/04/16 17:25 12/05/16 06:05 Labs: Abnormal Lab Results - Last 24 Hours (Table) 12/05/16 12/05/16 12/05/16 Range/Units 06:05 06:05 06:07 PT 25.3 H (9.0-12.0) sec BUN 26 H (9-20) mg/dL Glucose 121 H (74-99) mg/dL POC Glucose (mg/dL) 147 H (75-99) mg/dL Calcium 7.6 L (8.4-10.2) mg/dL Thrombosis Risk Factor Assmnt - Choose All That Apply Each Factor Represents 1 point: Abnormal pulmonary function (COPD), Medical pt on bed rest, Obesity (BMI >25), Serious lung disease incl. pneumonia (< 1month) , Swollen legs (current) Each Risk Factor Represents 3 Points: Age 75 years or older Thrombosis Risk Factor Assessment Total Risk Factor Score: 8 Thrombosis Risk Factor Assessment Level: High Risk Assessment and Plan Plan: #1 left lower lobe infiltrate suggestive of pneumonia patient was started on IV Levaquin and IV Zosyn in the emergency room will obtain sputum sample for culture and Gram stain continue was current antibiotic at this time #2 pulmonary congestion on chest x-ray, patient has known history of congestive heart failure and known history of pulmonary hypertension, will give IV Lasix and monitor progress closely #3 anemia hemoglobin down to 7.7, will monitor closely and give red blood cell transfusions if needed #4 underlying history of atrial fibrillation, at this time heart rate is well- controlled patient is maintained on Coumadin for stroke prophylaxis INR is in therapeutic range will continue was current management will monitor INR daily due to concomitant use of antibiotics #5 underlying history of obstructive uropathy maintained on chronic indwelling Nguyen catheter, continue with Flomax and pro-scar #6 acute COPD exacerbation patient was started on IV steroids in the emergency room pulmonary consultation was requested #7 underlying history of hypothyroidism maintained on Synthroid 137 g daily Will continue #8 underlying history of hyperlipidemia maintained on Lipitor 40 mg daily At this time will continue was current management will follow closely prognosis is guarded due to multiple underlying medical problems Pulmonary, cardiology, and infectious disease consultations were requested
[2016-12-05] MEDS: SENNOSIDES-DOCUSATE SODIUM 1 EACH TAB PO SCH ×2 (10:31→20:26)
[2016-12-05] MEDS: FUROSEMIDE 40 MG TAB PO SCH (10:31)
[2016-12-05] MEDS: ALLOPURINOL 100 MG TAB PO SCH ×2 (10:32→22:11)
[2016-12-05 12:01] LABS: Glucose,Whole Blood 128 mg/dL (75-99)
--- NOTE | 2016-12-05 15:33 | P.CRDCN ---
History of Present Illness Consult date: 12/05/16 Chief complaint: Worsening shortness of breath History of present illness: This is a pleasant 76-year-old gentleman who does not follows with any transfer controller in town but he does follow with a transfer controller at the [facility] according to him with an extensive cardiac history consistent of aortic valve disease and status post aortic valve replacement using a bioprosthetic valve, status post mitral valve repair, chronic atrial fibrillation, and chronic respiratory failure, was brought from an extended care facility to the hospital for worsening shortness of breath and not feeling well. The patient just was discharged from the hospital for an extended care facility few weeks ago. He was receiving rehab over there. He started experiencing fever, cough producing sputum, and some change in mental status. Beside that the patient noticed progressive bilateral lower extremities edema started about 2 weeks ago and also progressive exertional dyspnea. According to him, he gained significant amount of weight. In the hospital the patient was febrile with a temperature of more 100. The chest x-ray showed findings consistent with left lower lobe infiltrate. He The patient was started on antibiotic for possible pneumonia. On physical examination the patient has severe bilateral lower extremities edema seems to be pitting edema. He stated that he cannot lay flat in bed because of the shortness of breath. He just underwent an echocardiogram recently and that showed mildly impaired LV function with an ejection fraction of 45% with moderate tricuspid regurgitation and severe pulmonary hypertension and normally functioning bioprosthetic valve. The patient has an acute on chronic respiratory failure. He does have congestive heart failure with predominantly right heart failure more than left heart failure. I am going to start him on Lasix IV. No need to repeat the echocardiogram in view of the recent one which was performed a few weeks ago. We'll continue monitor kidney function and electrolytes and continue following up with the patient. He is in atrial fibrillation was controlled heart rate and he is on Coumadin for anticoagulation. 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, severe pulmonary hypertension with a PA pressure of 84 with preserved LV function/right-sided heart failure, degenerative arthritis , hypothyroidism, hyperuricemia/gout, hyperlipidemia History of Any Multi-Drug Resistant Organisms: None Reported Past Surgical History: Cardiac Valve Replacement, Coronary Bypass/CABG, Joint Replacement, Orthopedic Surgery Additional Past Surgical History / Comment(s): CABG, tyhyroidectomy, pig valve replacement (Aortic), bilateral knee replacement, rt femur surgery Procedure on Mitral Valve Past Anesthesia/Blood Transfusion Reactions: No Reported Reaction Past Psychological History: No Psychological Hx Reported Smoking Status: Former smoker Past Alcohol Use History: Daily Past Drug Use History: None Reported - Past Family History Mother Family Medical History: Cancer Medications and Allergies Home Medications Medication Instructions Recorded Confirmed Type Acetaminophen Tab [Tylenol] 650 mg PO Q4H PRN 11/08/16 12/04/16 History Allopurinol [Zyloprim] 100 mg PO BID 11/08/16 12/04/16 History Amino Acids/Protein Hydrolys 30 ml PO DAILY 11/08/16 12/04/16 History [Pro-Stat Supplement] Bisacodyl 10 mg RECTAL DAILY PRN 11/08/16 12/04/16 History Fluticasone/Vilanterol [Breo 2 puff INHALATION RT-DAILY 11/08/16 12/04/16 History Ellipta 100-25 Mcg Inhaler] Ipratropium-Albuterol Nebulize 3 ml INHALATION RT-Q8H PRN 11/08/16 12/04/16 History [Duoneb 0.5 mg-3 mg/3 ml Soln] Levothyroxine Sodium [Synthroid] 137 mcg PO HS@199911/08/16 12/04/16 History Melatonin 5 mg PO HS@199911/08/16 12/04/16 History Omeprazole 20 mg PO HS@199911/08/16 12/04/16 History Sennosides/Docusate Sodium 1 tab PO BID 11/08/16 12/04/16 History [[place]-Colace Tablet] Tamsulosin [Flomax] 0.4 mg PO HS@199911/08/16 12/04/16 History Tiotropium 18 Mcg/Puff [Spiriva] 1 cap INHALATION RT-DAILY 11/08/16 12/04/16 History Lactulose [Cephulac] 20 gm PO DAILY PRN 11/20/16 12/04/16 History Sildenafil [Revatio] 20 mg PO Q8H 11/21/16 12/04/16 History ALPRAZolam [Xanax] 0.5 mg PO DAILY PRN 12/04/16 12/04/16 History Atorvastatin [Lipitor] 40 mg PO HS@199912/04/16 12/04/16 History Finasteride [Proscar] 5 mg PO HS 12/04/16 12/04/16 History Furosemide [Lasix] 40 mg PO BID 12/04/16 12/04/16 History Allergies Allergy/AdvReac Type Severity Reaction Status Date / Time No Known Allergies Allergy Verified 12/04/16 17:12 Physical Exam Vitals: Vital Signs Temp Pulse Pulse Resp BP BP Pulse Ox 12/05/16 12:05 80 18 106/60 94 L 12/05/16 08:00 96.9 F L 78 18 99/57 95 12/05/16 04:00 97.2 F L 73 18 111/67 97 12/05/16 03:52 77 12/05/16 03:39 81 12/05/16 00:00 92 18 12/04/16 23:57 82 12/04/16 23:41 82 12/04/16 23:25 97.2 F L 18 104/59 99 12/04/16 21:13 92 24 12/04/16 20:35 98.4 F 96 18 101/55 96 12/04/16 20:16 97.7 F 92 24 93/52 96 12/04/16 20:00 92 20 100/52 94 L Intake and Output 12/05/16 12/05/16 12/05/16 06:59 14:59 22:59 Intake Total 250 1350 Balance 250 1350 Intake: IV 800 Sodium Chloride 0.9% 1, 800 000 ml @ 100 mls/hr IV . Q10H [facility] Rx#:[id number] Intake, IV Titration 250 50 Amount Magnesium Sulfate-D5w Pmx 100 1 gm In Dextrose/Water 1 100ml.bag @ 100 mls/hr IVPB Q1H [facility] Rx#: [id number] Piperacillin-Tazobactam 3 50 50 .375 gm In Dextrose/Water 1 50ml.bag @ 12.5 mls/hr IVPB Q8HR [facility] Rx#: [id number] Potassium Chloride 20 meq 100 Lidocaine 2% Inj 20 mg In Sodium Chloride 0.9% 100 ml @ 55.5 mls/hr IVPB Q2H [facility] Rx#:[id number] Oral 500 Other: Voiding Method Indwelling Catheter Indwelling Catheter Weight 106.5 kg - Constitutional General appearance: mild distress - Respiratory Respiratory: bilateral: diminished, rales - Cardiovascular Rhythm: irregularly irregular Heart sounds: normal: S1, S2 Abnormal Heart Sounds: systolic murmur Results 12/04/16 17:25 12/05/16 06:05 Coagulation 12/05/16 Range/Units 06:05 PT 25.3 H (9.0-12.0) sec Comprehensive Metabolic Panel 12/05/16 Range/Units 06:05 Sodium 139 (137-145) mmol/L Potassium 3.7 (3.5-5.1) mmol/L Chloride 100 (98-107) mmol/L Carbon Dioxide 28 (22-30) mmol/L BUN 26 H (9-20) mg/dL Creatinine 1.11 (0.66-1.25) mg/dL Glucose 121 H (74-99) mg/dL Calcium 7.6 L (8.4-10.2) mg/dL Current Medications Generic Name Dose Route Start Last Admin Trade Name Freq PRN Reason Stop Dose Admin Acetaminophen 650 mg 12/04/16 19:51 Tylenol Tab PO Q4H PRN Fever and/ or Pain Albuterol/Ipratropium 3 ml 12/04/16 20:00 12/05/16 13:38 Duoneb 0.5 Mg-3 Mg/3 Ml Soln INHALATION Not Given RT-Q4H [facility] Allopurinol 100 mg 12/04/16 21:00 12/05/16 10:32 Zyloprim PO 100 mg BID [facility] Administration Alprazolam 0.5 mg 12/04/16 19:51 12/05/16 10:38 Xanax PO 0.5 mg DAILY PRN Administration Anxiety Atorvastatin Calcium 40 mg 12/04/16 20:00 12/04/16 22:05 Lipitor PO 40 mg HS@2000 [facility] Administration Bisacodyl 10 mg 12/04/16 19:51 Dulcolax RECTAL DAILY PRN Constipation Finasteride 5 mg 12/04/16 21:00 12/04/16 22:06 Proscar PO 5 mg HS [facility] Administration Furosemide 40 mg 12/04/16 21:00 12/05/16 10:31 Lasix PO 40 mg BID [facility] Administration Piperacillin/Tazobactam/ 50 mls @ 12.5 mls/hr 12/05/16 00:00 12/05/16 08:21 Dextrose 3.375 gm/ IV Solution IVPB 12/15/16 00:01 12.5 mls/hr Q8HR [facility] Administration Sodium Chloride 1,000 mls @ 20 mls/hr 12/04/16 20:00 12/04/16 23:39 Saline 0.9% IV 20 mls/hr .Q24H [facility] Administration Insulin Human Lispro 0 unit 12/05/16 07:30 12/05/16 12:06 Humalog SQ Not Given [facility] Protocol Lactulose 20 gm 12/04/16 19:51 Cephulac PO DAILY PRN Constipation Levofloxacin 750 mg 12/05/16 20:00 Levaquin PO Q24H [facility] Levothyroxine Sodium 137 mcg 12/04/16 20:00 12/04/16 22:05 Synthroid PO 137 mcg HS@1999 [facility] Administration Melatonin 5 mg 12/04/16 20:00 12/04/16 22:05 Melatonin PO 5 mg HS@1999 [facility] Administration Methylprednisolone Sodium Succinate 60 mg 12/05/16 00:00 12/05/16 12:08 Solu-Medrol IV 60 mg Q6HR [facility] Administration Miscellaneous Information 1 each 12/04/16 19:47 Pneumonia Protocol Utilized PO ONCE PRN Per Protocol Pantoprazole Sodium 40 mg 12/04/16 20:00 12/04/16 22:06 Protonix PO 40 mg HS@1999 [facility] Administration Senna/Docusate Sodium 1 each 12/04/16 21:00 12/05/16 10:31 Senokot-S PO 1 each BID [facility] Administration Sildenafil Citrate 20 mg 12/04/16 21:00 12/05/16 12:08 Revatio PO 20 mg Q8H [facility] Administration Tamsulosin HCl 0.4 mg 12/04/16 21:00 12/04/16 22:07 Flomax PO 0.4 mg HS@1999 [facility] Administration Warfarin Sodium 4 mg 12/04/16 21:00 12/04/16 22:07 Coumadin PO 4 mg DAILY@1800 [facility] Administration Intake and Output 12/05/16 12/05/16 12/05/16 06:59 14:59 22:59 Intake Total 250 1350 Balance 250 1350 Intake: IV 800 Sodium Chloride 0.9% 1, 800 000 ml @ 100 mls/hr IV . Q10H [facility] Rx#:[id number] Intake, IV Titration 250 50 Amount Magnesium Sulfate-D5w Pmx 100 1 gm In Dextrose/Water 1 100ml.bag @ 100 mls/hr IVPB Q1H [facility] Rx#: [id number] Piperacillin-Tazobactam 3 50 50 .375 gm In Dextrose/Water 1 50ml.bag @ 12.5 mls/hr IVPB Q8HR [facility] Rx#: [id number] Potassium Chloride 20 meq 100 Lidocaine 2% Inj 20 mg In Sodium Chloride 0.9% 100 ml @ 55.5 mls/hr IVPB Q2H [facility] Rx#:[id number] Oral 500 Other: Voiding Method Indwelling Catheter Indwelling Catheter Weight 106.5 kg 12/05/16 06:05 Assessment and Plan Plan: Assessment #1 acute on chronic respiratory failure #2 congestive heart failure secondary to systolic dysfunction with a predominantly right heart failure #3 possible pneumonia #4 chronic atrial fibrillation with controlled heart rate #5 underlying COPD #6 valvular heart disease as described above Plan #1 the patient currently is an antibiotic for pneumonia and also for UTI #2 DC the Lasix by mouth and start the patient on Lasix IV #3 monitor the kidney function and electrolytes and monitor the hemoglobin #4 follow-up with the patient
[2016-12-05] MEDS: WARFARIN 2 MG TAB PO SCH (16:34)
[2016-12-05 17:20] LABS: Glucose,Whole Blood 145 mg/dL (75-99)
[2016-12-05] MEDS ORDERED: LEVOFLOXACIN 750 MG TAB PO SCH (20:00)
[2016-12-05] MEDS ORDERED: IPRATROPIUM-ALBUTEROL 3 ML NEB INHALATION PRN (20:01)
[2016-12-05] MEDS: MELATONIN 5 MG TABLET PO SCH (20:25)
[2016-12-05] MEDS: LEVOTHYROXINE 137 MCG TAB PO SCH (20:25)
[2016-12-05] MEDS: ATORVASTATIN 40 MG TAB PO SCH (20:25)
[2016-12-05] MEDS: SODIUM CHLORIDE 0.9% 1,000 ML IV SCH ×2 (20:26→23:32)
[2016-12-05] MEDS: TAMSULOSIN 0.4 MG CAP.ER.24H PO SCH (20:26)
[2016-12-05] MEDS: FINASTERIDE 5 MG TAB PO SCH (20:26)
[2016-12-05] MEDS: PANTOPRAZOLE 40 MG TABLET PO SCH (20:26)
[2016-12-05] MEDS: FUROSEMIDE 10 MG/ML 4 ML VIAL IV SCH (20:28)
[2016-12-05 21:09] LABS: Glucose,Whole Blood 176 mg/dL (75-99)
[2016-12-06] MEDS: ALPRAZolam 0.5 MG TAB PO PRN ×2 (00:24→22:02)
[2016-12-06 06:25] LABS: Glucose,Whole Blood 147 mg/dL (75-99)
[2016-12-06] MEDS: INSULIN LISPRO (humaLOG) 300 UNIT/3 ML VIAL SQ SCH ×3 (06:34→17:16)
[2016-12-06] MEDS: SILDENAFIL 20 MG TAB PO SCH ×3 (06:34→21:57)
[2016-12-06] MEDS: methylPREDNISolone SOD SUCCI 125 MG/2 ML VIAL IV SCH (06:34)
[2016-12-06 06:57] LABS: INR 3.4 (<1.1); Prothrombin Time 33.1 sec (9.0-12.0)
[2016-12-06 07:10] LABS: Anisocytosis Slight; Basophils % (A) 0 %; CH 29.5; CHCM 30.1; Eosinophils % (A) 0 %; HDW 4.53; Hypochromasia Marked; Luc # (Auto) 0.09; Luc % (Auto) 0; Lymphocytes # (A) 0.3 k/uL (1.0-4.8); Lymphocytes % (A) 1 %; MCH 29.8 pg (25.0-35.0); MCHC 30.4 g/dL (31.0-37.0); MCV 98.2 fL (80.0-100.0); Macrocytosis Slight; Mean Platelet Volume 7.8; Monocytes # (A) 0.7 k/uL (0-1.0); Monocytes % (A) 3 %; Neutrophils # (A) 23.6 k/uL (1.3-7.7); Neutrophils % (A) 96 %; Poikilocytosis Moderate; RBC 2.34 m/uL (4.30-5.90); RDW 16.7 % (11.5-15.5); WBC 24.7 k/uL (3.8-10.6); WBC (Perox) 23.72
[2016-12-06 07:42] LABS: ALT 35 U/L (21-72); AST 25 U/L (17-59); Alkaline Phosphatase 114 U/L (38-126); Anion Gap 11 mmol/L; Blood Urea Nitrogen 31 mg/dL (9-20); Calcium 7.7 mg/dL (8.4-10.2); Carbon Dioxide 29 mmol/L (22-30); Chloride 98 mmol/L (98-107); Glucose 133 mg/dL (74-99); Non-African American GFR(MDRD) >60 (>60 ml/min/1.73 sqM); Potassium 3.6 mmol/L (3.5-5.1); Sodium 138 mmol/L (137-145); Total Bilirubin 0.8 mg/dL (0.2-1.3)
[2016-12-06] MEDS: SENNOSIDES-DOCUSATE SODIUM 1 EACH TAB PO SCH (08:38)
[2016-12-06] MEDS: ALLOPURINOL 100 MG TAB PO SCH ×2 (08:39→21:56)
[2016-12-06] MEDS: FUROSEMIDE 10 MG/ML 4 ML VIAL IV SCH ×2 (08:50→22:01)
[2016-12-06] MEDS: PIPERACILLIN-TAZOBACTAM 3.375 GM in DEXTROSE/WATER 1 50ML.BAG IVPB SCH ×2 (08:50→14:58)
--- NOTE | 2016-12-06 10:15 | CDI ---
In responding to this query, please exercise your independent professional judgment. The [facility] Coding Staff and Clinical Documentation Specialists appreciate your assistance in clarifying documentation, maintaining compliance with coding guidelines, accurately documenting patients condition and capturing severity of illness. The fact that a question is asked does not imply that any particular answer is desired or expected. Communication forms are a method of clarifying documentation and are not made part of the Legal Health Record. Thank you in advance for your clarification. Last Revision, October 2016 Ken Lizarraga [address] [place] [address] Documentation Clarification Form Date: 12/06/2016 10:04:00 AM From: Yasmine Monzon CCS, CCDS Admit Date: 12/04/2016 7:47:00 PM Patient Name: Andreas Dukes Visit Number: [id number] Discharge Date: Dr. Gilbert Wolfe: 76 yo male, admit from ECF (in rehab status post hip fracture & ORIF). Presented with fever and difficulty breathing, diagnosed with Pneumonia, UTI & COPD exacerbation. History/Risk Factors: From ECF, extensive cardiac history, recent hospitalization, lower extremity cellulitis & indwelling Nguyen catheter. Clinical Indicators: VS: T 101.4, P 107, R 22 (sob), BP 109/55, PO 84 4Lnc LAB: WBC 27.8, Hgb 7.7, Neut 25.9, Lactic acid: (1.8), (1.5) UA: Light brown, turbid, Lg esterase, RBC & WBC >182. Cx: Gm Neg Bacilli (final pending) Cultures: Blood & Sputum pending Treatment: IV fluid rate 100, IV Levaquin, IV Lasix, IV Ativan, IV MagSulfate, O2 4Lnc Consults: Cardiology, Infectious disease, Pulmonary In your professional opinion, please clarify if these findings signify one of the following conditions, whether the condition is POA, and cause, if known: Sepsis, ruled out SIRS, without underlying infectious process Sepsis Severe Sepsis Septic Shock Unable to determine Other, please specify Present on Admission: Yes No * Identify the (suspected) organism Please document in your progress notes and discharge summary in order to capture severity of illness and risk of mortality. Include clinical findings that support your diagnosis. FYI: Press F11 to launch patient chart. Place X here if this finding has no clinical significance, is not applicable or if you are not able to provide any additional documentation. Thank You. JUNE
--- NOTE | 2016-12-06 10:20 | CDI ---
In responding to this query, please exercise your independent professional judgment. The [facility] Coding Staff and Clinical Documentation Specialists appreciate your assistance in clarifying documentation, maintaining compliance with coding guidelines, accurately documenting patients condition and capturing severity of illness. The fact that a question is asked does not imply that any particular answer is desired or expected. Communication forms are a method of clarifying documentation and are not made part of the Legal Health Record. Thank you in advance for your clarification. Last Revision, June 2015 Ken Lizarraga [address] [facility] [place] [address] Documentation Clarification Form Date: 12/06/2016 10:16:00 AM From: Yasmine Monzon CCS, CCDS Admit Date: 12/04/2016 7:47:00 PM Patient Name: Andreas Dukes Visit Number: [id number] Discharge Date: Dr. Gilbert Wolfe: 76 yo male, admit from ECF (in rehab status post hip fracture & ORIF). Presented with fever and difficulty breathing, diagnosed with Pneumonia, UTI & COPD exacerbation. History/Risk Factors: From ECF, extensive cardiac history, recent hospitalization, lower extremity cellulitis & indwelling Nguyen catheter. Clinical Indicators: VS: T 101.4, P 107, R 22 (sob), BP 109/55, PO 84 4Lnc LAB: WBC 27.8, Hgb 7.7, Neut 25.9, Lactic acid: (1.8), (1.5) UA: Light brown, turbid, Lg esterase, RBC & WBC >182. Cx: Gm Neg Bacilli (final pending) Cultures: Blood & Sputum pending Treatment: IV fluid rate 100, IV Levaquin, IV Lasix, IV Ativan, IV MagSulfate, O2 4Lnc Consults: Cardiology, Infectious disease, Pulmonary In your professional opinion, can you please clarify the etiology of the UTI, if known? Nguyen catheter Suprapubic catheter Urostomy UTI not related to catheter/urostomy Other condition, please specify Unable to determine If an infective organism is present, please specify cause and effect relationship if applicable. Please document in your progress notes and discharge summary in order to capture severity of illness and risk of mortality. Include clinical findings that support your diagnosis. FYI: Press F11 to launch patient chart Place X here if this finding has no clinical significance, is not applicable or if you are not able to provide any additional documentation. Thank You. JUNE
[2016-12-06] MEDS ORDERED: Potassium Replacement Protocol 1 EACH MISC MISCELLANE PRN (10:39)
[2016-12-06] MEDS ORDERED: Magnesium Replacement Protocol 1 EACH MISC MISCELLANE PRN (10:39)
[2016-12-06] MEDS: METOPROLOL TARTRATE 12.5 MG TAB PO SCH ×2 (11:47→21:58)
[2016-12-06] MEDS ORDERED: MAGNESIUM SULFATE-D5W PMX 1 GM in DEXTROSE/WATER 1 100ML.BAG IVPB ONE (12:00)
[2016-12-06] MEDS ORDERED: POTASSIUM CHLORIDE ER 20 MEQ TAB.ER PO SCH (12:00)
[2016-12-06 12:04] LABS: Glucose,Whole Blood 158 mg/dL (75-99)
--- NOTE | 2016-12-06 12:55 | P.PN ---
Subjective Patient is doing better today. His mentation is back to normal baseline. He continues to have pitting edema up to the hip. Shortness of breath is slightly better. Objective - Vital Signs Vital signs: Vital Signs Temp 97 F L 12/06/16 12:00 Pulse 94 12/06/16 12:00 Resp 18 12/06/16 12:00 BP 119/75 12/06/16 12:00 Pulse Ox 94 L 12/06/16 12:00 Intake & Output 12/05/16 12/06/16 12/06/16 18:59 06:59 18:59 Intake Total 1350 540 100 Output Total 900 Balance 1350 -360 100 Weight 110.4 kg Intake: IV 800 10 Sodium Chloride 0.9% 1, 800 10 000 ml @ 100 mls/hr IV . Q10H ONE Rx#:[id number] Intake, IV Titration 50 50 Amount Piperacillin-Tazobactam 3 50 50 .375 gm In Dextrose/Water 1 50ml.bag @ 12.5 mls/hr IVPB Q8HR [facility] Rx#: [id number] Oral 500 480 100 Output: Urine 900 Other: Voiding Method Indwelling Catheter Indwelling Catheter Indwelling Catheter - Exam General: The patient is awake and alert, in no distress Eye: there is normal conjunctiva bilaterally. Neck: The neck is supple, there is no JVD. Cardiovascular: Normal S1-S2, no S3-S4, no murmurs. Respiratory: Lungs clear to auscultation bilaterally Gastrointestinal: Abdomen is soft, nontender Musculoskeletal: There is no pedal edema. Neurological:. Speech is normal. Skin: Skin is warm and dry - Labs CBC & Chem 7: 12/06/16 05:30 12/06/16 05:30 Labs: Abnormal Lab Results - Last 24 Hours (Table) 12/05/16 12/05/16 12/06/16 Range/Units 17:00 20:50 05:30 WBC 24.7 H (3.8-10.6) k/uL RBC 2.34 L (4.30-5.90) m/uL Hgb 7.0 L* (13.0-17.5) gm/dL Hct 23.0 L (39.0-53.0) % MCHC 30.4 L (31.0-37.0) g/dL RDW 16.7 H (11.5-15.5) % Neutrophils # 23.6 H (1.3-7.7) k/uL Lymphocytes # 0.3 L (1.0-4.8) k/uL PT (9.0-12.0) sec BUN (9-20) mg/dL Glucose (74-99) mg/dL POC Glucose (mg/dL) 145 H 176 H (75-99) mg/dL Calcium (8.4-10.2) mg/dL Total Protein (6.3-8.2) g/dL Albumin (3.5-5.0) g/dL 12/06/16 12/06/16 12/06/16 Range/Units 05:30 05:30 06:24 WBC (3.8-10.6) k/uL RBC (4.30-5.90) m/uL Hgb (13.0-17.5) gm/dL Hct (39.0-53.0) % MCHC (31.0-37.0) g/dL RDW (11.5-15.5) % Neutrophils # (1.3-7.7) k/uL Lymphocytes # (1.0-4.8) k/uL PT 33.1 H (9.0-12.0) sec BUN 31 H (9-20) mg/dL Glucose 133 H (74-99) mg/dL POC Glucose (mg/dL) 147 H (75-99) mg/dL Calcium 7.7 L (8.4-10.2) mg/dL Total Protein 6.0 L (6.3-8.2) g/dL Albumin 2.7 L (3.5-5.0) g/dL 12/06/16 Range/Units 11:52 WBC (3.8-10.6) k/uL RBC (4.30-5.90) m/uL Hgb (13.0-17.5) gm/dL Hct (39.0-53.0) % MCHC (31.0-37.0) g/dL RDW (11.5-15.5) % Neutrophils # (1.3-7.7) k/uL Lymphocytes # (1.0-4.8) k/uL PT (9.0-12.0) sec BUN (9-20) mg/dL Glucose (74-99) mg/dL POC Glucose (mg/dL) 158 H (75-99) mg/dL Calcium (8.4-10.2) mg/dL Total Protein (6.3-8.2) g/dL Albumin (3.5-5.0) g/dL Microbiology - Last 24 Hours (Table) 12/05/16 09:15 Gram Stain - Preliminary Sputum Assessment and Plan Plan: 1. Left lower lobe pneumonia: Healthcare acquired. Currently on broad- spectrum antibiotic. Infectious disease following. 2. Chronic blood loss anemia: Hemoglobin is 7 today. I would wait and repeat in the morning. If below 7 we will transfuse 2 units of blood. I would also check iron studies. 3. Acute on chronic hypoxic respiratory failure now back to baseline oxygen 2 L 3. Systolic and diastolic heart failure exacerbation currently on IV Lasix managed by cardiology 4. Severe pulmonary hypertension with cor pulmonale on Lasix and sildenafil as an outpatient 5. Chronic venous insufficiency with chronic venous insufficiency exam at this changes and dry skin 6. Paroxysmal atrial fibrillation on anticoagulation with Coumadin 7. Underlying COPD with no evidence of exacerbation 8. History of aortic valve replacement with bioprosthetic valve years ago 9. Chronic obstructive uropathy with chronic indwelling Nguyen catheter Today, I reviewed his medication list and lab work results. Continue diuresis with IV Lasix. Hold Coumadin dose today and recheck INR in the morning. I would consult for urology as patient was supposed to have an outpatient follow -up since he failed voiding trial at the assisted and currently is on dual therapy, appreciate neurology recommendations I discussed with the patient and his today his current clinical condition. Prognosis is guarded. We will continue supportive care otherwise. Repeat lab work in the morning.
--- NOTE | 2016-12-06 16:14 | P.PN ---
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 He was receiving rehab over there.He started experiencing fever, cough producing sputum, and some change in mental status. Beside that the patient noticed progressive bilateral lower extremities edema started about 2 weeks ago and also progressive exertional dyspnea. According to him, he gained significant amount of weight.In the hospital the patient was febrile with a temperature of more 100. The chest x-ray showed findings consistent with left lower lobe infiltrate. The patient was started on antibiotic for possible pneumonia.On physical examination the patient has severe bilateral lower extremities edema seems to be pitting edema. He stated that he cannot lay flat in bed because of the shortness of breath. He just underwent an echocardiogram recently and that showed mildly impaired LV function with an ejection fraction of 45% with moderate tricuspid regurgitation and severe pulmonary hypertension and normally functioning bioprosthetic valve. The patient has an acute on chronic respiratory failure. He does have congestive heart failure with predominantly right heart failure more than left heart failure. I am going to start him on Lasix IV. No need to repeat the echocardiogram in view of the recent one which was performed a few weeks ago. We'll continue monitor kidney function and electrolytes and continue following up with the patient. He is in atrial fibrillation was controlled heart rate and he is on Coumadin for anticoagulation. INR today is 3.4, Coumadin is on hold. Hemoglobin down to 7.0, white blood cell count 24.7. BUN 31, creatinine 1.1, potassium 3.6. Continues to be on IV Lasix. Objective - Vital Signs Vital signs: Vital Signs Temp 98 F 12/06/16 15:27 Pulse 91 12/06/16 15:27 Resp 18 12/06/16 15:27 BP 99/47 12/06/16 15:27 Pulse Ox 98 12/06/16 15:27 Intake & Output 12/05/16 12/06/1612/06/17 18:59 06:59 18:59 Intake Total 1350 540 530 Output Total 900 550 Balance 1350 -360 -20 Weight 110.4 kg Intake: IV 800 10 Sodium Chloride 0.9% 1, 800 10 000 ml @ 100 mls/hr IV . Q10H [facility] Rx#:[id number] Intake, IV Titration 50 50 310 Amount Magnesium Sulfate-D5w Pmx 100 1 gm In Dextrose/Water 1 100ml.bag @ 100 mls/hr IVPB ONCE ONE Rx#: [id number] Piperacillin-Tazobactam 3 50 50 50 .375 gm In Dextrose/Water 1 50ml.bag @ 12.5 mls/hr IVPB Q8HR [facility] Rx#: [id number] Sodium Chloride 0.9% 1, 160 000 ml @ 20 mls/hr IV . Q24H [facility] Rx#:[id number] Oral 500 480 220 Output: Urine 900 550 Other: Voiding Method Indwelling Catheter Indwelling Catheter Indwelling Catheter # Bowel Movements 1 - Exam PHYSICAL EXAMINATION: HEENT: Head is atraumatic, normocephalic. Pupils equal, round. Neck is supple. There is no elevated jugular venous pressure. HEART EXAMINATION: Heart S1S2 irregularly irregular a systolic murmur is heard. CHEST EXAMINATION: Audible Rales heard to bilateral bases. ABDOMEN: Soft, nontender. Bowel sounds are heard. No organomegaly noted. EXTREMITIES: 2+ peripheral pulses with no evidence of peripheral edema and no calf tenderness noted. NEUROLOGIC patient is awake, alert and oriented -3. . - Labs CBC & Chem 7: 12/06/16 05:30 12/06/16 05:30 Labs: Abnormal Lab Results - Last 24 Hours (Table) 12/05/16 12/05/16 12/06/16 Range/Units 17:00 20:50 05:30 WBC 24.7 H (3.8-10.6) k/uL RBC 2.34 L (4.30-5.90) m/uL Hgb 7.0 L* (13.0-17.5) gm/dL Hct 23.0 L (39.0-53.0) % MCHC 30.4 L (31.0-37.0) g/dL RDW 16.7 H (11.5-15.5) % Neutrophils # 23.6 H (1.3-7.7) k/uL Lymphocytes # 0.3 L (1.0-4.8) k/uL PT (9.0-12.0) sec BUN (9-20) mg/dL Glucose (74-99) mg/dL POC Glucose (mg/dL) 145 H 176 H (75-99) mg/dL Calcium (8.4-10.2) mg/dL Total Protein (6.3-8.2) g/dL Albumin (3.5-5.0) g/dL 12/06/16 12/06/16 12/06/16 Range/Units 05:30 05:30 06:24 WBC (3.8-10.6) k/uL RBC (4.30-5.90) m/uL Hgb (13.0-17.5) gm/dL Hct (39.0-53.0) % MCHC (31.0-37.0) g/dL RDW (11.5-15.5) % Neutrophils # (1.3-7.7) k/uL Lymphocytes # (1.0-4.8) k/uL PT 33.1 H (9.0-12.0) sec BUN 31 H (9-20) mg/dL Glucose 133 H (74-99) mg/dL POC Glucose (mg/dL) 147 H (75-99) mg/dL Calcium 7.7 L (8.4-10.2) mg/dL Total Protein 6.0 L (6.3-8.2) g/dL Albumin 2.7 L (3.5-5.0) g/dL 12/06/16 Range/Units 11:52 WBC (3.8-10.6) k/uL RBC (4.30-5.90) m/uL Hgb (13.0-17.5) gm/dL Hct (39.0-53.0) % MCHC (31.0-37.0) g/dL RDW (11.5-15.5) % Neutrophils # (1.3-7.7) k/uL Lymphocytes # (1.0-4.8) k/uL PT (9.0-12.0) sec BUN (9-20) mg/dL Glucose (74-99) mg/dL POC Glucose (mg/dL) 158 H (75-99) mg/dL Calcium (8.4-10.2) mg/dL Total Protein (6.3-8.2) g/dL Albumin (3.5-5.0) g/dL Microbiology - Last 24 Hours (Table) 12/05/16 09:15 Gram Stain - Preliminary Sputum Assessment and Plan (1) Systolic CHF, acute on chronic Status: Acute (2) Pneumonia Status: Acute (3) Chronic a-fib Status: Acute (4) COPD (chronic obstructive pulmonary disease) Status: Acute (5) Chronic anemia Status: Acute (6) Pulmonary HTN Status: Acute (7) S/P AVR Status: Acute Plan: Cardiology's perspective, we will recommend to continue current dose of IV Lasix. Check lytes BUN and creatinine in the morning. Hold The dose of Coumadin today check INR in the morning. DNP note has been reviewed, I agree with a documented findings and plan of care. Patient was seen and examined.
[2016-12-06 16:58] LABS: Glucose,Whole Blood 106 mg/dL (75-99)
--- NOTE | 2016-12-06 18:15 | CONS ---
DATE OF CONSULTATION: This is a 76-year-old male who apparently sees a doctor at the [facility] in [place]. He was recently admitted to the hospital about a month ago from a local [facility] with mental status changes and fever. He was seen in the emergency room recently by Dr. Rayo and was having temperature elevation as well. He was anxious. Apparently he also was having some shortness of breath, difficulty breathing and cough. Not sure that he was coughing up any phlegm. He had chronic wounds to his lower extremities. For these reasons and others he was admitted to the hospital. I was asked to see him. Currently he is feeling a bit better. He is with his in the room. Apparently he saw Dr. Reyes recently in the outpatient setting and was prescribed Revatio, which is sildenafil or Viagra 20 mg 3 times a day. At that dose typically we use it for pulmonary hypertension. Apparently he does not have followup with Dr. Reyes in the office. I am not sure why that is. Anyway, the patient was admitted for the fever and the anxiety as well as difficulty breathing, cough and chest congestion. His home medications include: 1. Tylenol. 2. Zyloprim. 3. ProStat supplement. 4. Colace. 5. Breo. 6. DuoNeb. 7. Levothyroxine. 8. Melatonin. 9. Omeprazole. 10. [place]-Colace. 11. Flomax. 12. Spiriva. 13. Lactulose. 14. Revatio. 15. Xanax. 16. Lipitor. 17. Proscar. 18. Lasix. He was previously on warfarin but apparently is not on that currently. ALLERGIES: DENIED. Medical history includes: 1. Atrial fibrillation. 2. CAD. 3. Heart failure. 4. COPD. 5. GERD. 6. Previous bypass grafting. 7. Aortic valve replacement. 8. Obstructive uropathy. 9. Recent right hip fracture with ORIF. 10. Lower extremity edema. 11. Stage I ulcers of the lower extremities. 12. Severe pulmonary hypertension. 13. Right-sided heart failure. 14. DJD. 15. Hypothyroidism. 16. Gout. 17. Hyperlipidemia. Previous surgical history includes: 1. Cardiac valve replacement. 2. Bypass grafting. 3. Joint replacement. 4. Thyroidectomy. 5. Pig valve replacement at the aortic post. 6. Bilateral knee replacement. 7. Right femur surgery. Social history is positive for previous tobacco use. He does not smoke currently. Family history is positive for cancer. Occupational history is noncontributory. Review of systems is unreliable, but according to his he had fever, chest congestion, cough, wheezing, shortness of breath. He does not remember ( ) he really wants to go home. Current vital signs are reviewed. Temperature 97, heart rate 86, respiratory rate 18, blood pressure 119/75, mean 89. Three-liter saturation 94%. Appears in no acute distress; he actually looks pretty good. HEENT examination is grossly unremarkable. Mucous membranes are moist. NECK: Supple. Full range of motion. No adenopathy or thyromegaly. Neck veins are not distended. Cardiovascular examination reveals regular rhythm and rate. S1, S2 normal. Soft systolic murmur is heard. Lungs reveal mostly clear breath sounds. A few scattered rhonchi and wheezes. Breath sounds are diminished. No crackles. ABDOMEN: Soft. Bowel sounds are heard. EXTREMITIES: Wrapped. I did not undo the wrappings. Skin is without rash. He does have multiple areas of ecchymosis. Neurological examination is brief but nonfocal. A chest x-ray on December 05 shows changes of CHF with some mild decompensation and small effusions. Lab data is reviewed. White count 24.7, hemoglobin 7, down from 7.7, hematocrit 23, platelet count 225,000. PT and INR were 33.1 and 3.4. Sodium, potassium, chloride and CO2 normal. BUN and creatinine were 31 and 1.10. Urine looks like it is infected. He has 3+ protein, large blood, leukocyte esterase with large positive, RBCs of 182, WBCs of greater than 182, many white blood cell clumps. Urine drug screen was positive for opiates and benzodiazepines. No N-terminal proBNP was done. ASSESSMENT: 1. Shortness of breath, likely related to underlying congestive heart failure. 2. No clear evidence of pneumonia. 3. History of recent bypass grafting and aortic valve replacement. 4. History of congestive heart failure. 5. Chronic atrial fibrillation. 6. Obstructive uropathy. 7. Gastroesophageal reflux disease. 8. Status post recent right hip fracture with open reduction internal fixation. 9. Chronic lower extremity ulcers and wounds. 10. Secondary pulmonary hypertension. 11. Hypothyroidism. 12. Degenerative joint disease. 13. Gout. 14. Hyperlipidemia. PLAN: Medications and x-rays are reviewed. Additional recommendations and suggestions are forthcoming. Will order an N-terminal proBNP. I suspect a lot of this might be underlying heart failure. He did smoke heavily in the past. He smoked, we figured, about 30 years at a pack a day. Will add some updrafts if not already added. Additional recommendations and suggestions are forthcoming. Prognosis is guarded. I have agreed to see him in the clinic after discharge on December 21.
[2016-12-06 20:42] LABS: Glucose,Whole Blood 167 mg/dL (75-99)
[2016-12-06] MEDS: SYMBICORT 160-4.5 MCG INHALER INHALATION SCH (21:33)
--- NOTE | 2016-12-06 21:41 | CONS ---
DATE OF CONSULTATION: 12/06/2016 REASON FOR CONSULTATION: Pneumonia. HISTORY OF PRESENT ILLNESS: The patient is a 76-year-old male presenting to the [facility] ER on 12/07/2016 with the chief complaints of difficulty in breathing and also with mental status changes and fever. Apparently the patient did have a fever of 100 degrees Fahrenheit. The patient apparently has been very anxious for the last 2 days. Patient did have a congested cough productive of some yellow sputum, per the family member. Patient denies having any nausea; no vomiting. The patient denies having abdominal pain; no diarrhea. The patient did have chronic lower extremity swelling but denies any pain to the leg area or an open area. In the ER the patient was noted to have a fever of 101.4 degrees Fahrenheit. The patient did have a chest x-ray which did show left lower lobe pneumonia. The patient has been started on broad-spectrum antibiotic in the form of piperacillin tazobactam in the hospital. I was asked to see the patient for further recommendation. Patient did have a white count of 27.8 on admission, though. Patient denies significant abdominal pain. He did have a Nguyen catheter which was placed here. Denies any other symptom prior to that. The urine that was checked is also significantly positive. REVIEW OF SYSTEMS: CONSTITUTIONAL: Positive for weakness and a fever on admission which has resolved. EYES: No complaint. ENT: No complaint. RESPIRATORY: As per HPI. CARDIOVASCULAR: No complaint. GENITOURINARY: As per HPI. GASTROINTESTINAL: No complaint. MUSCULOSKELETAL: No complaint. INTEGUMENTARY: No complaint. PSYCHOLOGIC: No complaint. ENDOCRINE: No complaint. NEUROLOGIC: No complaint. Past medical history is significant for: 1. Systolic congestive heart failure. 2. Pulmonary hypertension. 3. Paroxysmal atrial fibrillation. 4. COPD. 5. Urinary outflow obstruction with chronic Nguyen. 6. Lower extremity cellulitis. 7. Right hip fracture. PAST SURGICAL HISTORY: 1. Right hip fracture repair. 2. Coronary artery bypass grafting. 3. Bilateral knee replacement. SOCIAL HISTORY: Remote history of smoking. No drinking or drug use. FAMILY HISTORY: Mother with history of cancer. ALLERGIES: NO KNOWN DRUG ALLERGIES. Medications currently include: 1. Flomax. 2. Revatio. 3. Senokot. 4. Piperacillin tazobactam. 5. Protonix. 6. Lopressor. 7. Melatonin. 8. Synthroid. 9. Humalog. 10. Lasix. 11. Proscar. 12. Dulcolax. 13. Lipitor. 14. Xanax. 15. DuoNeb. 16. Tylenol. On examination, blood pressure is 119/75 with a pulse of 94, temperature 97. He is 94% on 3 L nasal cannula. General description is an elderly male up in the chair in no distress. No tachypnea or accessory muscle of respiration use. HEENT examination shows pallor. No scleral icterus. Oral mucous membrane is dry. NECK: Trachea is central. No thyromegaly. LUNGS: Unlabored breathing. Coarse breath sounds at the base bilaterally. No wheeze. HEART: S1, S2. Regular rate and rhythm. ABDOMEN: Soft. No tenderness. EXTREMITIES: No edema of the feet. GENITOURINARY: The patient did have a Nguyen catheter draining some clean urine. No hematuria. Neurologically the patient is awake, alert, oriented x2. Mood and affect normal. LABS: Hemoglobin is 7, white count 24.7. Admission white count was 27.8. BUN of 31, creatinine 1.10. Urine has been significantly positive. Urine showing a Gram-negative. Sputum culture is currently pending. Blood cultures are negative. DIAGNOSTIC IMPRESSION AND PLAN: Patient admitted to hospital with sepsis in a patient who did have fever of 101 degrees Fahrenheit; did have elevated white count of 27,000 meeting criteria for systemic inflammatory response syndrome. Source is likely left lower lobe pneumonia, and underlying Gram-negative urinary tract infection cannot be entirely excluded in a patient with underlying obstructive uropathy. PLAN: 1. Will try to change the Nguyen catheter and obtain a urine culture from the new Nguyen, as not changed during this admission. 2. Zosyn 3.375 grams IV q.8 hours for coverage of pneumonia as well as UTI. 3. Will follow up on the clinical condition as well as cultures to further adjust medication if needed. Thank you for this consultation. Will follow this patient along with you. JUNE
[2016-12-06] MEDS: TAMSULOSIN 0.4 MG CAP.ER.24H PO SCH (21:55)
[2016-12-06] MEDS: ATORVASTATIN 40 MG TAB PO SCH (21:55)
[2016-12-06] MEDS: FINASTERIDE 5 MG TAB PO SCH (21:55)
[2016-12-06] MEDS: MELATONIN 5 MG TABLET PO SCH (21:56)
[2016-12-06] MEDS: LEVOTHYROXINE 137 MCG TAB PO SCH (21:56)
[2016-12-06] MEDS: PANTOPRAZOLE 40 MG TABLET PO SCH (21:56)
[2016-12-07] MEDS: PIPERACILLIN-TAZOBACTAM 3.375 GM in DEXTROSE/WATER 1 50ML.BAG IVPB SCH ×3 (00:30→15:39)
[2016-12-07 06:24] LABS: Glucose,Whole Blood 143 mg/dL (75-99)
[2016-12-07] MEDS: SENNOSIDES-DOCUSATE SODIUM 1 EACH TAB PO SCH ×2 (06:52→07:31)
[2016-12-07] MEDS: SILDENAFIL 20 MG TAB PO SCH ×3 (06:55→21:29)
[2016-12-07] MEDS: INSULIN LISPRO (humaLOG) 300 UNIT/3 ML VIAL SQ SCH ×5 (06:56→21:29)
[2016-12-07] MEDS: SODIUM CHLORIDE 0.9% 1,000 ML IV SCH (06:56)
[2016-12-07 07:03] LABS: Anisocytosis Slight; Basophils % (A) 0 %; CH 29.1; CHCM 29.5; Eosinophils % (A) 0 %; HCT 25.2 % (39.0-53.0); HDW 4.25; HGB 7.5 gm/dL (13.0-17.5); Hypochromasia Marked; Luc # (Auto) 0.09; Luc % (Auto) 1; Lymphocytes # (A) 0.4 k/uL (1.0-4.8); Lymphocytes % (A) 3 %; MCH 29.5 pg (25.0-35.0); MCHC 29.9 g/dL (31.0-37.0); MCV 98.8 fL (80.0-100.0); Macrocytosis Slight; Mean Platelet Volume 7.8; Monocytes # (A) 0.3 k/uL (0-1.0); Monocytes % (A) 2 %; Neutrophils # (A) 14.2 k/uL (1.3-7.7); Neutrophils % (A) 94 %; Poikilocytosis Moderate; RBC 2.55 m/uL (4.30-5.90); RDW 16.8 % (11.5-15.5); WBC (Perox) 15.81
--- NOTE | 2016-12-07 07:07 | P.GSCN ---
History of Present Illness Consult date: 12/07/16 History of present illness: The patient is a 76-year-old gentleman in the hospital for pneumonia. He has a temporary indwelling catheter that has been there a couple months since his leg fracture in [place]. He apparently had some significant gross hematuria while in [place]. He has had one voiding trial but was unable to urinate according to the patient. He is on tamsulosin and finasteride however he doesn't recall being on these before his hip fracture. He is voiding without difficulty. He was seen in consultation by in the recent past and a prostate exam was done and apparently was not enlarged. His urine is clear. Review of Systems - Constitutional Reports as per HPI - Respiratory Reports as per HPI - Genitourinary Reports as per HPI 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, severe pulmonary hypertension with a PA pressure of 84 with preserved LV function/right-sided heart failure, degenerative arthritis , hypothyroidism, hyperuricemia/gout, hyperlipidemia History of Any Multi-Drug Resistant Organisms: None Reported Past Surgical History: Cardiac Valve Replacement, Coronary Bypass/CABG, Joint Replacement, Orthopedic Surgery Additional Past Surgical History / Comment(s): CABG, tyhyroidectomy, pig valve replacement (Aortic), bilateral knee replacement, rt femur surgery Procedure on Mitral Valve Past Anesthesia/Blood Transfusion Reactions: No Reported Reaction Past Psychological History: No Psychological Hx Reported Smoking Status: Former smoker Past Alcohol Use History: Daily Past Drug Use History: None Reported - Past Family History Mother Family Medical History: Cancer Medications and Allergies Home Medications Medication Instructions Recorded Confirmed Type Acetaminophen Tab [Tylenol] 650 mg PO Q4H PRN 11/08/16 12/04/16 History Allopurinol [Zyloprim] 100 mg PO BID 11/08/16 12/04/16 History Amino Acids/Protein Hydrolys 30 ml PO DAILY 11/08/16 12/04/16 History [Pro-Stat Supplement] Bisacodyl 10 mg RECTAL DAILY PRN 11/08/16 12/04/16 History Fluticasone/Vilanterol [Breo 2 puff INHALATION RT-DAILY 11/08/16 12/04/16 History Ellipta 100-25 Mcg Inhaler] Ipratropium-Albuterol Nebulize 3 ml INHALATION RT-Q8H PRN 11/08/16 12/04/16 History [Duoneb 0.5 mg-3 mg/3 ml Soln] Levothyroxine Sodium [Synthroid] 137 mcg PO HS@199911/08/16 12/04/16 History Melatonin 5 mg PO HS@199911/08/16 12/04/16 History Omeprazole 20 mg PO HS@199911/08/16 12/04/16 History Sennosides/Docusate Sodium 1 tab PO BID 11/08/16 12/04/16 History [[place]ace Tablet] Tamsulosin [Flomax] 0.4 mg PO HS@199911/08/16 12/04/16 History Tiotropium 18 Mcg/Puff [Spiriva] 1 cap INHALATION RT-DAILY 11/08/16 12/04/16 History Lactulose [Cephulac] 20 gm PO DAILY PRN 11/20/16 12/04/16 History Sildenafil [Revatio] 20 mg PO Q8H 11/21/16 12/04/16 History ALPRAZolam [Xanax] 0.5 mg PO DAILY PRN 12/04/16 12/04/16 History Atorvastatin [Lipitor] 40 mg PO HS@199912/04/16 12/04/16 History Finasteride [Proscar] 5 mg PO HS 12/04/16 12/04/16 History Furosemide [Lasix] 40 mg PO BID 12/04/16 12/04/16 History Allergies Allergy/AdvReac Type Severity Reaction Status Date / Time No Known Allergies Allergy Verified 12/04/16 17:12 Surgical - Exam Vital Signs Temp Pulse Resp BP Pulse Ox 101.4 F H 107 H 22 109/55 84 L 12/04/16 17:14 12/04/16 17:14 12/04/16 17:14 12/04/16 17:14 12/04/16 17:14 - General well developed, well nourished, no distress, obese - Eyes PERRL - ENT no hearing loss - Neck trachea midline - Respiratory normal expansion, normal respiratory effort - Abdomen Abdomen: soft - Musculoskeletal normal posture - Psychiatric oriented to time, oriented to person, oriented to place, speech is normal, memory intact Results - Labs 12/06/16 05:30 12/06/16 05:30 Abnormal Lab Results - Last 24 Hours (Table) 12/06/16 12/06/16 12/06/16 Range/Units 05:30 05:30 11:52 WBC 24.7 H (3.8-10.6) k/uL RBC 2.34 L (4.30-5.90) m/uL Hgb 7.0 L* (13.0-17.5) gm/dL Hct 23.0 L (39.0-53.0) % MCHC 30.4 L (31.0-37.0) g/dL RDW 16.7 H (11.5-15.5) % Neutrophils # 23.6 H (1.3-7.7) k/uL Lymphocytes # 0.3 L (1.0-4.8) k/uL BUN 31 H (9-20) mg/dL Glucose 133 H (74-99) mg/dL POC Glucose (mg/dL) 158 H (75-99) mg/dL Calcium 7.7 L (8.4-10.2) mg/dL Total Protein 6.0 L (6.3-8.2) g/dL Albumin 2.7 L (3.5-5.0) g/dL 12/06/16 12/06/16 12/07/16 Range/Units 16:36 20:36 06:18 WBC (3.8-10.6) k/uL RBC (4.30-5.90) m/uL Hgb (13.0-17.5) gm/dL Hct (39.0-53.0) % MCHC (31.0-37.0) g/dL RDW (11.5-15.5) % Neutrophils # (1.3-7.7) k/uL Lymphocytes # (1.0-4.8) k/uL BUN (9-20) mg/dL Glucose (74-99) mg/dL POC Glucose (mg/dL) 106 H 167 H 143 H (75-99) mg/dL Calcium (8.4-10.2) mg/dL Total Protein (6.3-8.2) g/dL Albumin (3.5-5.0) g/dL Diabetes panel 12/06/16 Range/Units 05:30 Sodium 138 (137-145) mmol/L Potassium 3.6 (3.5-5.1) mmol/L Chloride 98 (98-107) mmol/L Carbon Dioxide 29 (22-30) mmol/L BUN 31 H (9-20) mg/dL Creatinine 1.10 (0.66-1.25) mg/dL Glucose 133 H (74-99) mg/dL Calcium 7.7 L (8.4-10.2) mg/dL AST 25 (17-59) U/L ALT 35 (21-72) U/L Alkaline Phosphatase 114 (38-126) U/L Total Protein 6.0 L (6.3-8.2) g/dL Albumin 2.7 L (3.5-5.0) g/dL Calcium panel 12/06/16 Range/Units 05:30 Calcium 7.7 L (8.4-10.2) mg/dL Albumin 2.7 L (3.5-5.0) g/dL Pituitary panel 12/06/16 Range/Units 05:30 Sodium 138 (137-145) mmol/L Potassium 3.6 (3.5-5.1) mmol/L Chloride 98 (98-107) mmol/L Carbon Dioxide 29 (22-30) mmol/L BUN 31 H (9-20) mg/dL Creatinine 1.10 (0.66-1.25) mg/dL Glucose 133 H (74-99) mg/dL Calcium 7.7 L (8.4-10.2) mg/dL Adrenal panel 12/06/16 Range/Units 05:30 Sodium 138 (137-145) mmol/L Potassium 3.6 (3.5-5.1) mmol/L Chloride 98 (98-107) mmol/L Carbon Dioxide 29 (22-30) mmol/L BUN 31 H (9-20) mg/dL Creatinine 1.10 (0.66-1.25) mg/dL Glucose 133 H (74-99) mg/dL Calcium 7.7 L (8.4-10.2) mg/dL Total Bilirubin 0.8 (0.2-1.3) mg/dL AST 25 (17-59) U/L ALT 35 (21-72) U/L Alkaline Phosphatase 114 (38-126) U/L Total Protein 6.0 L (6.3-8.2) g/dL Albumin 2.7 L (3.5-5.0) g/dL Assessment and Plan Plan: Impression: Post injury urine retention while in [place]. He has gross hematuria secondary to probable catheter irritation. He said pneumonia as well as medical issues. Recommendations. When the patient getting near to discharge from his pneumonia the catheter should be removed for a voiding trial. He is already on tamsulosin and finasteride. I will notify of his admission.
[2016-12-07 07:18] LABS: Anion Gap 12 mmol/L; Blood Urea Nitrogen 39 mg/dL (9-20); Calcium 7.7 mg/dL (8.4-10.2); Carbon Dioxide 27 mmol/L (22-30); Chloride 98 mmol/L (98-107); Glucose 123 mg/dL (74-99); Non-African American GFR(MDRD) 55 (>60 ml/min/1.73 sqM); Sodium 137 mmol/L (137-145)
[2016-12-07] MEDS: FUROSEMIDE 10 MG/ML 4 ML VIAL IV SCH ×2 (07:30→21:25)
[2016-12-07] MEDS: ALLOPURINOL 100 MG TAB PO SCH ×2 (07:30→21:25)
[2016-12-07] MEDS: METOPROLOL TARTRATE 12.5 MG TAB PO SCH ×2 (07:31→21:28)
[2016-12-07 07:33] LABS: INR 4.3 (<1.1); Prothrombin Time 42.3 sec (9.0-12.0)
[2016-12-07] MEDS: SYMBICORT 160-4.5 MCG INHALER INHALATION SCH ×2 (07:51→20:31)
--- NOTE | 2016-12-07 10:04 | CDI ---
In responding to this query, please exercise your independent professional judgment. The [facility] Coding Staff and Clinical Documentation Specialists appreciate your assistance in clarifying documentation, maintaining compliance with coding guidelines, accurately documenting patients condition and capturing severity of illness. The fact that a question is asked does not imply that any particular answer is desired or expected. Communication forms are a method of clarifying documentation and are not made part of the Legal Health Record. Thank you in advance for your clarification. Last Revision, June 2015 Ken Lizarraga [address] [place] [address] Documentation Clarification Form Date: 12/07/2016 10:02:00 AM From: Yasmine Monzon CCS, CCDS Admit Date: 12/04/2016 7:47:00 PM Patient Name: Andreas Dukes Visit Number: [id number] Discharge Date: Dr. Gilbert Wolfe or Dr. Yeni Joshi: 76 yo male, admit from ECF (in rehab status post hip fracture & ORIF). Presented with fever and difficulty breathing, diagnosed with Pneumonia, UTI & COPD exacerbation. Per Urology the patient's Nguyen catheter will be changed & cultured. History/Risk Factors: From ECF, extensive cardiac history, recent hospitalization, lower extremity cellulitis & indwelling Nguyen catheter. Clinical Indicators: VS: T 101.4, P 107, R 22 (sob), BP 109/55, PO 84 4Lnc LAB: WBC 27.8, Hgb 7.7, Neut 25.9, Lactic acid: (1.8), (1.5) UA: Light brown, turbid, Lg esterase, RBC & WBC >182. Cx: Gm Neg Bacilli (final pending) Cultures: Blood & Sputum pending Treatment: IV fluid rate 100, IV Levaquin, IV Lasix, IV Ativan, IV MagSulfate, O2 4Lnc Consults: Cardiology, Infectious disease, Pulmonary In your professional opinion, can you please clarify the etiology of the UTI, if known? Nguyen catheter Suprapubic catheter Urostomy UTI not related to catheter/urostomy Other condition, please specify Unable to determine If an infective organism is present, please specify cause and effect relationship if applicable. Please document in your progress notes and discharge summary in order to capture severity of illness and risk of mortality. Include clinical findings that support your diagnosis. FYI: Press F11 to launch patient chart Place X here if this finding has no clinical significance, is not applicable or if you are not able to provide any additional documentation. Thank You. JUNE
--- NOTE | 2016-12-07 10:06 | CDI ---
In responding to this query, please exercise your independent professional judgment. The [facility] Coding Staff and Clinical Documentation Specialists appreciate your assistance in clarifying documentation, maintaining compliance with coding guidelines, accurately documenting patients condition and capturing severity of illness. The fact that a question is asked does not imply that any particular answer is desired or expected. Communication forms are a method of clarifying documentation and are not made part of the Legal Health Record. Thank you in advance for your clarification. Last Revision, October 2016 Ken Lizarraga [address] [facility] [place] [address] Documentation Clarification Form Date: 12/07/2016 10:04:00 AM From: Yasmine Monzon CCS, CCDS Admit Date: 12/04/2016 7:47:00 PM Patient Name: Andreas Dukes Visit Number: [id number] Discharge Date: Dr. Gilbert Wolfe or Dr. Yeni Joshi: 76 yo male, admit from ECF (in rehab status post hip fracture & ORIF). Presented with fever and difficulty breathing, diagnosed with Pneumonia, UTI & COPD exacerbation. History/Risk Factors: From ECF, extensive cardiac history, recent hospitalization, lower extremity cellulitis & indwelling Nguyen catheter. Clinical Indicators: VS: T 101.4, P 107, R 22 (sob), BP 109/55, PO 84 4Lnc LAB: WBC 27.8, Hgb 7.7, Neut 25.9, Lactic acid: (1.8), (1.5) UA: Light brown, turbid, Lg esterase, RBC & WBC >182. Cx: Gm Neg Bacilli (final pending) Cultures: Blood & Sputum pending Treatment: IV fluid rate 100, IV Levaquin, IV Lasix, IV Ativan, IV MagSulfate, O2 4Lnc Consults: Cardiology, Infectious disease, Pulmonary, Urology In your professional opinion, please clarify if these findings signify one of the following conditions, whether the condition is POA, and cause, if known: Sepsis, ruled out SIRS, without underlying infectious process Sepsis Severe Sepsis Septic Shock Unable to determine Other, please specify Present on Admission: Yes No * Identify the (suspected) organism Please document in your progress notes and discharge summary in order to capture severity of illness and risk of mortality. Include clinical findings that support your diagnosis. FYI: Press F11 to launch patient chart. Place X here if this finding has no clinical significance, is not applicable or if you are not able to provide any additional documentation. Thank You. JUNE
[2016-12-07 11:17] LABS: Iron 23 ug/dL (49-181)
[2016-12-07 11:26] LABS: % Iron Saturation 8.6 % (20-50); Total Iron Binding Capacity 269 ug/dL (261-462)
[2016-12-07 11:33] LABS: Glucose,Whole Blood 216 mg/dL (75-99)
--- NOTE | 2016-12-07 12:37 | P.PN ---
Subjective A 76 year-old gentleman who follows with the [facility] for his primary medical needs. He has a history of fibrillation, coronary artery disease with previous coronary artery bypass surgery and aortic valve replacement with a tissue valve, congestive heart failure, obstructive uropathy requiring Nguyen catheter insertion, recent fall with right hip fracture post-ORIF, chronic lower extremity edema, ulceration of the lower extremities, severe pulmonary hypertension with a PA pressure of 84 treated with Revatio, degenerative arthritis, hypothyroidism. He was recently discharged from here and then readmitted again on 2016 after being brought in from an extended care facility with altered mental status and fever. He was reported at 101 on the day of admission. His urine was positive for pseudomonas aeruginosa and E coli. Currently on Zosyn. He is seen again today 12/07/2016 on follow-up on the tip care unit. He is currently sitting up in the chair at the bedside. He is awake and alert in no acute distress. He denies any worsening shortness of breath, cough or congestion. No chills or night sweats. HEENT obtaining good to OC saturations in the mid upper 90s on 2 L/m per nasal cannula. His been afebrile. No leukocytosis, current WBC 15.0. Hemoglobin 7.5. In our 4.3. BUN 39 creatinine 1.27. Objective - Vital Signs Vital signs: Vital Signs Temp 97.2 F L 12/07/16 11:32 Pulse 70 12/07/16 11:32 Resp 18 12/07/16 11:32 BP 99/52 12/07/16 11:32 Pulse Ox 96 12/07/16 11:32 Intake & Output 12/06/16 12/07/16 12/07/16 18:59 06:59 18:59 Intake Total 530 180 286 Output Total 550 550 Balance -20 -370 286 Weight 109.5 kg Intake: Intake, IV Titration 310 180 50 Amount Magnesium Sulfate-D5w Pmx 100 180 1 gm In Dextrose/Water 1 100ml.bag @ 100 mls/hr IVPB ONCE ONE Rx#: [id number] Piperacillin-Tazobactam 3 50 50 .375 gm In Dextrose/Water 1 50ml.bag @ 12.5 mls/hr IVPB Q8HR [facility] Rx#: [id number] Sodium Chloride 0.9% 1, 160 000 ml @ 20 mls/hr IV . Q24H [facility] Rx#:[id number] Oral 220 236 Output: Urine 550 550 Other: Voiding Method Indwelling Catheter Indwelling Catheter Indwelling Catheter # Voids 0 # Bowel Movements 1 1 - Exam GENERAL EXAM: Alert, comfortable in no apparent distress. HEAD: Normocephalic. EYES: Normal reaction of pupils, equal size. NOSE: Clear with pink turbinates. THROAT: No erythema or exudates. NECK: No masses, no JVD. CHEST: No chest wall deformity. LUNGS: Equal air entry with crackles in the posterior bases. CVS: S1 and S2 normal with no audible murmurs, regular rhythm. ABDOMEN: No hepatosplenomegaly, normal bowel sounds, no guarding or rigidity. Extremities: There is trace peripheral edema. No clubbing, no cyanosis. Changes of chronic venous stasis. - Labs CBC & Chem 7: 12/07/16 06:10 12/07/16 06:10 Labs: Abnormal Lab Results - Last 24 Hours (Table) 12/06/16 12/06/16 12/07/16 Range/Units 16:36 20:36 06:10 WBC 15.0 H (3.8-10.6) k/uL RBC 2.55 L (4.30-5.90) m/uL Hgb 7.5 L (13.0-17.5) gm/dL Hct 25.2 L (39.0-53.0) % MCHC 29.9 L (31.0-37.0) g/dL RDW 16.8 H (11.5-15.5) % Neutrophils # 14.2 H (1.3-7.7) k/uL Lymphocytes # 0.4 L (1.0-4.8) k/uL PT (9.0-12.0) sec BUN (9-20) mg/dL Creatinine (0.66-1.25) mg/dL Glucose (74-99) mg/dL POC Glucose (mg/dL) 106 H 167 H (75-99) mg/dL Calcium (8.4-10.2) mg/dL Iron (49-181) ug/dL % Saturation (20-50) % 12/07/16 12/07/16 12/07/16 Range/Units 06:10 06:10 06:18 WBC (3.8-10.6) k/uL RBC (4.30-5.90) m/uL Hgb (13.0-17.5) gm/dL Hct (39.0-53.0) % MCHC (31.0-37.0) g/dL RDW (11.5-15.5) % Neutrophils # (1.3-7.7) k/uL Lymphocytes # (1.0-4.8) k/uL PT 42.3 H (9.0-12.0) sec BUN 39 H (9-20) mg/dL Creatinine 1.27 H (0.66-1.25) mg/dL Glucose 123 H (74-99) mg/dL POC Glucose (mg/dL) 143 H (75-99) mg/dL Calcium 7.7 L (8.4-10.2) mg/dL Iron 23 L (49-181) ug/dL % Saturation 8.6 L (20-50) % 12/07/16 Range/Units 11:31 WBC (3.8-10.6) k/uL RBC (4.30-5.90) m/uL Hgb (13.0-17.5) gm/dL Hct (39.0-53.0) % MCHC (31.0-37.0) g/dL RDW (11.5-15.5) % Neutrophils # (1.3-7.7) k/uL Lymphocytes # (1.0-4.8) k/uL PT (9.0-12.0) sec BUN (9-20) mg/dL Creatinine (0.66-1.25) mg/dL Glucose (74-99) mg/dL POC Glucose (mg/dL) 216 H (75-99) mg/dL Calcium (8.4-10.2) mg/dL Iron (49-181) ug/dL % Saturation (20-50) % Microbiology - Last 24 Hours (Table) 12/05/16 09:15 Gram Stain - Final Sputum Sputum Culture - Final Assessment and Plan Plan: Impression: #1 Acute exacerbation of diastolic congestive heart failure #2 Severe pulmonary hypertension with RVSP 84 mmHg. #3 Urinary tract infection. #4 Coronary disease with previous coronary artery bypass grafting. #5 Aortic stenosis status post aortic valve replacement/tissue valve. #6 Chronic atrial fibrillation, anticoagulated with warfarin, supra therapeutic. #7 chronic lower extremity edema was stage I superficial ulceration. #8 Hyperlipidemia. #9 Hypothyroidism. #10 Osteoarthritis. #11 Poor overall functional performance in the above-mentioned multiple comorbidities. Plan: The patient was seen and evaluated by Dr. Peter. We'll continue with diuretics. He remains on an coagulation which will be held based on his INR 4.3. With bronchodilators, Symbicort, Revatio. He remains on antibiotics in the form of Zosyn. Will increase his activity as tolerated. We'll continue to follow and make further recommendations based on his clinical status. The patient's case was reviewed and discussed by Dr. Peter. The interim history , assessment and plan were dictated as recommendations by him.
[2016-12-07] MEDS ORDERED: SENNOSIDES-DOCUSATE SODIUM 1 EACH TAB PO PRN (14:26)
--- NOTE | 2016-12-07 14:51 | P.PN ---
Subjective Principal diagnosis: pneumonia This is a pleasant 76-year-old gentleman who does not follows with any sealer aircraft in town but he does follow with a sealer aircraft at the [facility] according to him with an extensive cardiac history consistent of aortic valve disease and status post aortic valve replacement using a bioprosthetic valve, status post mitral valve repair, chronic atrial fibrillation, and chronic respiratory failure, was brought from an extended care facility to the hospital for worsening shortness of breath and not feeling well.The patient just was discharged from the hospital for an extended care facility few weeks ago. He was receiving rehab over there.He started experiencing fever, cough producing sputum, and some change in mental status. Beside that the patient noticed progressive bilateral lower extremities edema started about 2 weeks ago and also progressive exertional dyspnea. According to him, he gained significant amount of weight.In the hospital the patient was febrile with a temperature of more 100. The chest x-ray showed findings consistent with left lower lobe infiltrate. The patient was started on antibiotic for possible pneumonia.On physical examination the patient has severe bilateral lower extremities edema seems to be pitting edema. He stated that he cannot lay flat in bed because of the shortness of breath. He just underwent an echocardiogram recently and that showed mildly impaired LV function with an ejection fraction of 45% with moderate tricuspid regurgitation and severe pulmonary hypertension and normally functioning bioprosthetic valve.The patient has an acute on chronic respiratory failure. He does have congestive heart failure with predominantly right heart failure more than left heart failure. No need to repeat the echocardiogram in view of the recent one which was performed a few weeks ago. We'll continue monitor kidney function and electrolytes and continue following up with the patient. He is in atrial fibrillation was controlled heart rate and he is on Coumadin for anticoagulation. INR today is 4.3, Coumadin is on hold. Hemoglobin 7.5, white blood cell count 15.0 BUN 39, creatinine 1.2, potassium 4.0. Continues to be on IV Lasix. Objective - Vital Signs Vital signs: Vital Signs Temp 97.6 F 12/07/16 14:43 Pulse 70 12/07/16 14:43 Resp 18 12/07/16 14:43 BP 104/56 12/07/16 14:43 Pulse Ox 95 12/07/16 14:43 Intake & Output 12/06/16 12/07/16 12/07/16 18:59 06:59 18:59 Intake Total 530 180 522 Output Total 550 550 Balance -20 -370 522 Weight 109.5 kg Intake: Intake, IV Titration 310 180 50 Amount Magnesium Sulfate-D5w Pmx 100 180 1 gm In Dextrose/Water 1 100ml.bag @ 100 mls/hr IVPB ONCE ONE Rx#: [id number] Piperacillin-Tazobactam 3 50 50 .375 gm In Dextrose/Water 1 50ml.bag @ 12.5 mls/hr IVPB Q8HR [facility] Rx#: [id number] Sodium Chloride 0.9% 1, 160 000 ml @ 20 mls/hr IV . Q24H [facility] Rx#:[id number] Oral 220 472 Output: Urine 550 550 Other: Voiding Method Indwelling Catheter Indwelling Catheter Urinal # Voids 0 # Bowel Movements 1 1 - Exam PHYSICAL EXAMINATION: HEENT: Head is atraumatic, normocephalic. Pupils equal, round. Neck is supple. There is no elevated jugular venous pressure. HEART EXAMINATION: Heart S1S2 irregularly irregular a systolic murmur is heard. CHEST EXAMINATION: Audible Rales heard to bilateral bases. ABDOMEN: Soft, nontender. Bowel sounds are heard. No organomegaly noted. EXTREMITIES: 2+ peripheral pulses with no evidence of peripheral edema and no calf tenderness noted. NEUROLOGIC patient is awake, alert and oriented -3. . - Labs CBC & Chem 7: 12/07/16 06:10 12/07/16 06:10 Labs: Abnormal Lab Results - Last 24 Hours (Table) 12/06/16 12/06/16 12/07/16 Range/Units 16:36 20:36 06:10 WBC 15.0 H (3.8-10.6) k/uL RBC 2.55 L (4.30-5.90) m/uL Hgb 7.5 L (13.0-17.5) gm/dL Hct 25.2 L (39.0-53.0) % MCHC 29.9 L (31.0-37.0) g/dL RDW 16.8 H (11.5-15.5) % Neutrophils # 14.2 H (1.3-7.7) k/uL Lymphocytes # 0.4 L (1.0-4.8) k/uL PT (9.0-12.0) sec BUN (9-20) mg/dL Creatinine (0.66-1.25) mg/dL Glucose (74-99) mg/dL POC Glucose (mg/dL) 106 H 167 H (75-99) mg/dL Calcium (8.4-10.2) mg/dL Iron (49-181) ug/dL % Saturation (20-50) % 12/07/16 12/07/16 12/07/16 Range/Units 06:10 06:10 06:18 WBC (3.8-10.6) k/uL RBC (4.30-5.90) m/uL Hgb (13.0-17.5) gm/dL Hct (39.0-53.0) % MCHC (31.0-37.0) g/dL RDW (11.5-15.5) % Neutrophils # (1.3-7.7) k/uL Lymphocytes # (1.0-4.8) k/uL PT 42.3 H (9.0-12.0) sec BUN 39 H (9-20) mg/dL Creatinine 1.27 H (0.66-1.25) mg/dL Glucose 123 H (74-99) mg/dL POC Glucose (mg/dL) 143 H (75-99) mg/dL Calcium 7.7 L (8.4-10.2) mg/dL Iron 23 L (49-181) ug/dL % Saturation 8.6 L (20-50) % 12/07/16 Range/Units 11:31 WBC (3.8-10.6) k/uL RBC (4.30-5.90) m/uL Hgb (13.0-17.5) gm/dL Hct (39.0-53.0) % MCHC (31.0-37.0) g/dL RDW (11.5-15.5) % Neutrophils # (1.3-7.7) k/uL Lymphocytes # (1.0-4.8) k/uL PT (9.0-12.0) sec BUN (9-20) mg/dL Creatinine (0.66-1.25) mg/dL Glucose (74-99) mg/dL POC Glucose (mg/dL) 216 H (75-99) mg/dL Calcium (8.4-10.2) mg/dL Iron (49-181) ug/dL % Saturation (20-50) % Microbiology - Last 24 Hours (Table) 12/05/16 09:15 Gram Stain - Final Sputum Sputum Culture - Final Assessment and Plan (1) Systolic CHF, acute on chronic Status: Acute (2) Pneumonia Status: Acute (3) Chronic a-fib Status: Acute (4) COPD (chronic obstructive pulmonary disease) Status: Acute (5) Chronic anemia Status: Acute (6) Pulmonary HTN Status: Acute (7) S/P AVR Status: Acute Plan: Cardiology's perspective, we will recommend to continue current dose of IV Lasix. Check lytes BUN and creatinine in the morning. Hold The dose of Coumadin today check INR in the morning. DNP note has been reviewed, I agree with a documented findings and plan of care. Patient was seen and examined.
[2016-12-07] MEDS ORDERED: SODIUM FERRIC GLUCONAT-SUCROSE 125 MG in SODIUM CHLORIDE 0.9% 100 ML IVPB ONE (15:23)
--- NOTE | 2016-12-07 15:24 | P.PN ---
Subjective Patient is doing fairly well today. He denies any shortness of breath at this time. Lower extremity wrapped with [place] wrap up to the knee bilaterally. Patient report that the swelling is coming down but is not back to his normal yet. Objective - Vital Signs Vital signs: Vital Signs Temp 97.6 F 12/07/16 14:43 Pulse 70 12/07/16 14:43 Resp 18 12/07/16 14:43 BP 104/56 12/07/16 14:43 Pulse Ox 97 12/07/16 14:43 Intake & Output 12/06/16 12/07/16 12/07/16 18:59 06:59 18:59 Intake Total 530 180 522 Output Total 550 550 Balance -20 -370 522 Weight 109.5 kg Intake: Intake, IV Titration 310 180 50 Amount Magnesium Sulfate-D5w Pmx 100 180 1 gm In Dextrose/Water 1 100ml.bag @ 100 mls/hr IVPB ONCE ONE Rx#: [id number] Piperacillin-Tazobactam 3 50 50 .375 gm In Dextrose/Water 1 50ml.bag @ 12.5 mls/hr IVPB Q8HR [facility] Rx#: [id number] Sodium Chloride 0.9% 1, 160 000 ml @ 20 mls/hr IV . Q24H [facility] Rx#:[id number] Oral 220 472 Output: Urine 550 550 Other: Voiding Method Indwelling Catheter Indwelling Catheter Urinal # Voids 0 # Bowel Movements 1 1 - Exam General: The patient is awake and alert, in no distress Eye: there is normal conjunctiva bilaterally. Neck: The neck is supple, there is no JVD. Cardiovascular: Normal S1-S2, no S3-S4, no murmurs. Respiratory: Lungs clear to auscultation bilaterally Gastrointestinal: Abdomen is soft, nontender Musculoskeletal: There is no pedal edema. Neurological:. Speech is normal. Skin: Skin is warm and dry - Labs CBC & Chem 7: 12/07/16 06:10 12/07/16 06:10 Labs: Abnormal Lab Results - Last 24 Hours (Table) 12/06/16 12/06/16 12/07/16 Range/Units 16:36 20:36 06:10 WBC 15.0 H (3.8-10.6) k/uL RBC 2.55 L (4.30-5.90) m/uL Hgb 7.5 L (13.0-17.5) gm/dL Hct 25.2 L (39.0-53.0) % MCHC 29.9 L (31.0-37.0) g/dL RDW 16.8 H (11.5-15.5) % Neutrophils # 14.2 H (1.3-7.7) k/uL Lymphocytes # 0.4 L (1.0-4.8) k/uL PT (9.0-12.0) sec BUN (9-20) mg/dL Creatinine (0.66-1.25) mg/dL Glucose (74-99) mg/dL POC Glucose (mg/dL) 106 H 167 H (75-99) mg/dL Calcium (8.4-10.2) mg/dL Iron (49-181) ug/dL % Saturation (20-50) % 12/07/16 12/07/16 12/07/16 Range/Units 06:10 06:10 06:18 WBC (3.8-10.6) k/uL RBC (4.30-5.90) m/uL Hgb (13.0-17.5) gm/dL Hct (39.0-53.0) % MCHC (31.0-37.0) g/dL RDW (11.5-15.5) % Neutrophils # (1.3-7.7) k/uL Lymphocytes # (1.0-4.8) k/uL PT 42.3 H (9.0-12.0) sec BUN 39 H (9-20) mg/dL Creatinine 1.27 H (0.66-1.25) mg/dL Glucose 123 H (74-99) mg/dL POC Glucose (mg/dL) 143 H (75-99) mg/dL Calcium 7.7 L (8.4-10.2) mg/dL Iron 23 L (49-181) ug/dL % Saturation 8.6 L (20-50) % 12/07/16 Range/Units 11:31 WBC (3.8-10.6) k/uL RBC (4.30-5.90) m/uL Hgb (13.0-17.5) gm/dL Hct (39.0-53.0) % MCHC (31.0-37.0) g/dL RDW (11.5-15.5) % Neutrophils # (1.3-7.7) k/uL Lymphocytes # (1.0-4.8) k/uL PT (9.0-12.0) sec BUN (9-20) mg/dL Creatinine (0.66-1.25) mg/dL Glucose (74-99) mg/dL POC Glucose (mg/dL) 216 H (75-99) mg/dL Calcium (8.4-10.2) mg/dL Iron (49-181) ug/dL % Saturation (20-50) % Microbiology - Last 24 Hours (Table) 12/05/16 09:15 Gram Stain - Final Sputum Sputum Culture - Final Assessment and Plan Plan: 1. Left lower lobe pneumonia: Healthcare acquired. Currently on broad- spectrum antibiotic. Infectious disease following. 2. Chronic blood loss anemia and iron deficiency anemia: Will give 1 dose of IV iron. Start oral supplement. Transfuse as needed for hemoglobin below 7 3. Acute on chronic hypoxic respiratory failure now back to baseline oxygen 2 L 3. Systolic and diastolic heart failure exacerbation currently on IV Lasix managed by cardiology 4. Severe pulmonary hypertension with cor pulmonale on Lasix and sildenafil as an outpatient 5. Chronic venous insufficiency with chronic venous insufficiency exam at this changes and dry skin 6. Paroxysmal atrial fibrillation on anticoagulation with Coumadin 7. Underlying COPD with no evidence of exacerbation 8. History of aortic valve replacement with bioprosthetic valve years ago 9. Chronic obstructive uropathy with chronic indwelling Nguyen catheter 10. Catheter associated urinary tract infection 11. Sepsis on presentation without septic shock Today, I reviewed his medication list and lab work results. Continue diuresis with IV Lasix. Hold Coumadin dose today and recheck INR in the morning. Attempt voiding trial tomorrow I discussed with the patient and his today his current clinical condition. Prognosis is guarded. We will continue supportive care otherwise. Repeat lab work in the morning.
[2016-12-07 16:28] LABS: Glucose,Whole Blood 193 mg/dL (75-99)
[2016-12-07 21:02] LABS: Glucose,Whole Blood 113 mg/dL (75-99)
[2016-12-07] MEDS: PANTOPRAZOLE 40 MG TABLET PO SCH (21:23)
[2016-12-07] MEDS: MELATONIN 5 MG TABLET PO SCH (21:24)
[2016-12-07] MEDS: LEVOTHYROXINE 137 MCG TAB PO SCH (21:24)
[2016-12-07] MEDS: ATORVASTATIN 40 MG TAB PO SCH (21:24)
[2016-12-07] MEDS: TAMSULOSIN 0.4 MG CAP.ER.24H PO SCH (21:25)
[2016-12-07] MEDS: FINASTERIDE 5 MG TAB PO SCH (21:25)
[2016-12-07] MEDS: ALPRAZolam 0.5 MG TAB PO PRN (21:27)
[2016-12-08 06:18] LABS: Glucose,Whole Blood 103 mg/dL (75-99)
[2016-12-08 06:41] LABS: Anisocytosis Slight; Basophils % (A) 0 %; CH 29.2; CHCM 29.3; Eosinophils % (A) 0 %; HCT 27.5 % (39.0-53.0); HDW 4.23; HGB 7.7 gm/dL (13.0-17.5); Hypochromasia Marked; Luc # (Auto) 0.16; Luc % (Auto) 1; Lymphocytes # (A) 0.6 k/uL (1.0-4.8); Lymphocytes % (A) 5 %; MCHC 28.1 g/dL (31.0-37.0); MCV 99.7 fL (80.0-100.0); Macrocytosis Slight; Mean Platelet Volume 7.9; Monocytes # (A) 0.6 k/uL (0-1.0); Monocytes % (A) 5 %; Neutrophils # (A) 11.2 k/uL (1.3-7.7); Neutrophils % (A) 90 %; Poikilocytosis Moderate; RBC 2.75 m/uL (4.30-5.90); RDW 17.1 % (11.5-15.5); WBC 12.5 k/uL (3.8-10.6); WBC (Perox) 12.88
[2016-12-08 06:45] LABS: INR 4.7 (<1.1); Prothrombin Time 46.5 sec (9.0-12.0)
[2016-12-08 06:50] LABS: Calcium 7.7 mg/dL (8.4-10.2); Magnesium 1.9 mg/dL (1.6-2.3); Potassium 3.9 mmol/L (3.5-5.1)
[2016-12-08] MEDS: PIPERACILLIN-TAZOBACTAM 3.375 GM in DEXTROSE/WATER 1 50ML.BAG IVPB SCH ×4 (07:15→23:47)
[2016-12-08] MEDS: INSULIN LISPRO (humaLOG) 300 UNIT/3 ML VIAL SQ SCH ×4 (07:16→21:01)
[2016-12-08] MEDS: SILDENAFIL 20 MG TAB PO SCH ×3 (07:17→20:28)
[2016-12-08] MEDS: SODIUM CHLORIDE 0.9% 1,000 ML IV SCH (07:20)
--- NOTE | 2016-12-08 08:17 | PN ---
DATE OF SERVICE: 12/07/2016 Reason for followup is pneumonia and catheter-associated UTI. INTERVAL HISTORY: The patient is afebrile. He is breathing more comfortably. Cough had decreased in intensity. Denies any chest pain or abdominal pain. No diarrhea. Urology has seen the patient and recommended removal of Nguyen and voiding trial before discharge. On examination, blood pressure is 121/62 with a pulse of 66, temperature 97.6. He is 95% on 2 L nasal cannula. General description is an elderly male, up in the chair in no distress. RESPIRATORY SYSTEM: Unlabored breathing with decreased breath sounds at the bases. No wheeze. HEART: S1, S2, regular rate and rhythm. ABDOMEN: Soft, no tenderness. Lower extremities are wrapped up, no obvious drainage. LABS: Hemoglobin is 7.5, white count 15 with a BUN of 39, creatinine 1.27. Sputum culture so far negative. Urine showing E. coli and Pseudomonas. DIAGNOSTIC IMPRESSION AND PLAN: Patient with sepsis. Source is likely catheter-associates urinary tract infection. Underlying pneumonia cannot be entirely excluded. RN has been advised to remove the Nguyen catheter and to obtain another UA after discontinuation of the Nguyen. Keep the patient on Zosyn , will follow repeat urine culture to determine discharge antibiotics. Continue supportive care. JUNE
[2016-12-08] MEDS: ALLOPURINOL 100 MG TAB PO SCH ×2 (09:17→20:26)
[2016-12-08] MEDS: SYMBICORT 160-4.5 MCG INHALER INHALATION SCH ×2 (09:27→19:54)
[2016-12-08] MEDS ORDERED: POTASSIUM CHLORIDE ER 20 MEQ TAB.ER PO STA (10:24)
[2016-12-08 11:25] LABS: Appearance,Urine Clear (Clear); Bilirubin,Urine Negative (Negative); Glucose,Urine (UA) Negative (Negative); Ketones,Urine Negative (Negative); Leukocyte Esterase,Urine Small (Negative); Mucus,Urine Rare /hpf; Nitrite,Urine Negative (Negative); PH, Urine 5.5 (5.0-8.0); Particle Count 1662; Protein,Urine Negative (Negative); RBC,Urine 16 /hpf (0-5); Specific Gravity,Urine 1.013 (1.001-1.035); UA Billing (MACRO vs. MICRO) MICRO; Urobilinogen,Urine <2.0 mg/dL (<2.0); WBC,Urine 10 /hpf (0-5)
[2016-12-08 11:36] LABS: Glucose,Whole Blood 151 mg/dL (75-99)
[2016-12-08] MEDS: METOPROLOL TARTRATE 12.5 MG TAB PO SCH ×2 (11:49→20:27)
[2016-12-08] MEDS: MAGNESIUM SULFATE-D5W PMX 1 GM in DEXTROSE/WATER 1 100ML.BAG IVPB SCH ×2 (11:49→12:58)
[2016-12-08] MEDS: FUROSEMIDE 10 MG/ML 4 ML VIAL IV SCH (11:49)
--- NOTE | 2016-12-08 12:15 | P.PN ---
Subjective Patient is doing fairly well today. He failed voiding trial this morning. Nguyen catheter was reinserted. He denies any shortness of breath otherwise. He is on 2 L of oxygen via nasal cannula. Objective - Vital Signs Vital signs: Vital Signs Temp 97.8 F 12/08/16 08:00 Pulse 68 12/08/16 11:34 Resp 16 12/08/16 11:34 BP 92/56 12/08/16 11:34 Pulse Ox 98 12/08/16 11:34 Intake & Output 12/07/16 12/08/16 12/08/16 18:59 06:59 18:59 Intake Total 744 236 Output Total 1650 0 Balance 744 -1650 236 Weight 110 kg 110 kg Intake: Intake, IV Titration 50 Amount Piperacillin-Tazobactam 3 50 .375 gm In Dextrose/Water 1 50ml.bag @ 12.5 mls/hr IVPB Q8HR [facility] Rx#: [id number] Oral 694 236 Output: Urine 1650 0 Other: Voiding Method Urinal Urinal Urinal # Voids 0 0 # Bowel Movements 1 1 - Exam General: The patient is awake and alert, in no distress Eye: there is normal conjunctiva bilaterally. Neck: The neck is supple, there is no JVD. Cardiovascular: Normal S1-S2, no S3-S4, no murmurs. Respiratory: Lungs clear to auscultation bilaterally Gastrointestinal: Abdomen is soft, nontender Musculoskeletal: There is no pedal edema. Neurological:. Speech is normal. Skin: Skin is warm and dry - Labs CBC & Chem 7: 12/08/16 05:30 12/08/16 05:30 Labs: Abnormal Lab Results - Last 24 Hours (Table) 12/07/16 12/07/16 12/08/16 Range/Units 16:26 21:00 05:30 WBC 12.5 H (3.8-10.6) k/uL RBC 2.75 L (4.30-5.90) m/uL Hgb 7.7 L (13.0-17.5) gm/dL Hct 27.5 L (39.0-53.0) % MCHC 28.1 L (31.0-37.0) g/dL RDW 17.1 H (11.5-15.5) % Neutrophils # 11.2 H (1.3-7.7) k/uL Lymphocytes # 0.6 L (1.0-4.8) k/uL PT (9.0-12.0) sec Sodium (137-145) mmol/L Chloride (98-107) mmol/L BUN (9-20) mg/dL Creatinine (0.66-1.25) mg/dL POC Glucose (mg/dL) 193 H 113 H (75-99) mg/dL Calcium (8.4-10.2) mg/dL Urine Blood (Negative) Ur Leukocyte Esterase (Negative) Urine RBC (0-5) /hpf Urine WBC (0-5) /hpf Urine WBC Clumps (None) /hpf Urine Mucus (None) /hpf 12/08/16 12/08/16 12/08/16 Range/Units 05:30 05:30 06:16 WBC (3.8-10.6) k/uL RBC (4.30-5.90) m/uL Hgb (13.0-17.5) gm/dL Hct (39.0-53.0) % MCHC (31.0-37.0) g/dL RDW (11.5-15.5) % Neutrophils # (1.3-7.7) k/uL Lymphocytes # (1.0-4.8) k/uL PT 46.5 H (9.0-12.0) sec Sodium 135 L (137-145) mmol/L Chloride 97 L (98-107) mmol/L BUN 46 H (9-20) mg/dL Creatinine 1.42 H (0.66-1.25) mg/dL POC Glucose (mg/dL) 103 H (75-99) mg/dL Calcium 7.7 L (8.4-10.2) mg/dL Urine Blood (Negative) Ur Leukocyte Esterase (Negative) Urine RBC (0-5) /hpf Urine WBC (0-5) /hpf Urine WBC Clumps (None) /hpf Urine Mucus (None) /hpf 12/08/16 12/08/16 Range/Units 09:45 11:34 WBC (3.8-10.6) k/uL RBC (4.30-5.90) m/uL Hgb (13.0-17.5) gm/dL Hct (39.0-53.0) % MCHC (31.0-37.0) g/dL RDW (11.5-15.5) % Neutrophils # (1.3-7.7) k/uL Lymphocytes # (1.0-4.8) k/uL PT (9.0-12.0) sec Sodium (137-145) mmol/L Chloride (98-107) mmol/L BUN (9-20) mg/dL Creatinine (0.66-1.25) mg/dL POC Glucose (mg/dL) 151 H (75-99) mg/dL Calcium (8.4-10.2) mg/dL Urine Blood Moderate H (Negative) Ur Leukocyte Esterase Small H (Negative) Urine RBC 16 H (0-5) /hpf Urine WBC 10 H (0-5) /hpf Urine WBC Clumps Rare H (None) /hpf Urine Mucus Rare H (None) /hpf Microbiology - Last 24 Hours (Table) 12/05/16 09:15 Gram Stain - Final Sputum Sputum Culture - Final Assessment and Plan Plan: 1. Left lower lobe pneumonia: Healthcare acquired. Currently on broad- spectrum antibiotic. Infectious disease following. 2. Chronic blood loss anemia and iron deficiency anemia: given 1 dose of IV iron. Start oral supplement. Transfuse as needed for hemoglobin below 7 3. Acute on chronic hypoxic respiratory failure now back to baseline oxygen 2 L 3. Systolic and diastolic heart failure exacerbation currently on IV Lasix will be switched to oral today 4. Severe pulmonary hypertension with cor pulmonale on Lasix and sildenafil as an outpatient 5. Chronic venous insufficiency with chronic venous insufficiency exam at this changes and dry skin 6. Paroxysmal atrial fibrillation on anticoagulation with Coumadin 7. Underlying COPD with no evidence of exacerbation 8. History of aortic valve replacement with bioprosthetic valve years ago 9. Chronic obstructive uropathy with chronic indwelling Nguyen catheter 10. Catheter associated urinary tract infection 11. Sepsis on presentation without septic shock Today, I reviewed his medication list and lab work results. Discontinue IV Lasix and switch to oral Lasix tomorrow morning given acute kidney injury Continue to hold Coumadin given elevated INR Discuss with infectious disease antibiotic course for discharge Anticipate discharge back to long term tomorrow
--- NOTE | 2016-12-08 14:14 | P.PN ---
Subjective A 76 year-old gentleman who follows with the [facility] for his primary medical needs. He has a history of fibrillation, coronary artery disease with previous coronary artery bypass surgery and aortic valve replacement with a tissue valve, congestive heart failure, obstructive uropathy requiring Nguyen catheter insertion, recent fall with right hip fracture post-ORIF, chronic lower extremity edema, ulceration of the lower extremities, severe pulmonary hypertension with a PA pressure of 84 treated with Revatio, degenerative arthritis, hypothyroidism. He was recently discharged from here and then readmitted again on 2016 after being brought in from an extended care facility with altered mental status and fever. He was reported at 101 on the day of admission. His urine was positive for pseudomonas aeruginosa and E coli. Currently on Zosyn. He is seen again today 12/07/2016 on follow-up on the tip care unit. He is currently sitting up in the chair at the bedside. He is awake and alert in no acute distress. He denies any worsening shortness of breath, cough or congestion. No chills or night sweats. HEENT obtaining good to OC saturations in the mid upper 90s on 2 L/m per nasal cannula. His been afebrile. No leukocytosis, current WBC 15.0. Hemoglobin 7.5. In our 4.3. BUN 39 creatinine 1.27. The patient is seen again today 12/08/2016 in follow-up on the selective care unit. Presently, he sitting up in the chair at the bedside. He is awake and alert in no acute distress. He denies any worsening shortness of breath, cough or congestion. His is at his side. The plan is for possible discharge in the next day or 2. Continues to maintain good O2 saturations in the upper 90s on 2 L/m per nasal cannula. He is afebrile. He is continued on his antibiotic coverage for his pseudomonas aeruginosa E. coli urinary tract infections. Objective - Vital Signs Vital signs: Vital Signs Temp 97.8 F 12/08/16 08:00 Pulse 68 12/08/16 12:00 Resp 16 12/08/16 12:00 BP 92/56 12/08/16 11:34 Pulse Ox 98 12/08/16 11:34 Intake & Output 12/07/16 12/08/16 12/08/16 18:59 06:59 18:59 Intake Total 744 476 Output Total 1650 0 Balance 744 -1650 476 Weight 110 kg 110 kg Intake: Intake, IV Titration 50 240 Amount Piperacillin-Tazobactam 3 50 .375 gm In Dextrose/Water 1 50ml.bag @ 12.5 mls/hr IVPB Q8HR [facility] Rx#: [id number] Sodium Chloride 0.9% 1, 240 000 ml @ 20 mls/hr IV . Q24H [facility] Rx#:[id number] Oral [id number] [id number] Output: Urine 1650 0 Other: Voiding Method Urinal Urinal Indwelling Catheter # Voids 0 0 # Bowel Movements 1 1 - Exam GENERAL EXAM: Alert, comfortable in no apparent distress. HEAD: Normocephalic. EYES: Normal reaction of pupils, equal size. NOSE: Clear with pink turbinates. THROAT: No erythema or exudates. NECK: No masses, no JVD. CHEST: No chest wall deformity. LUNGS: Equal air entry with crackles in the posterior bases. CVS: S1 and S2 normal with no audible murmurs, regular rhythm. ABDOMEN: No hepatosplenomegaly, normal bowel sounds, no guarding or rigidity. Extremities: There is trace peripheral edema. No clubbing, no cyanosis. Changes of chronic venous stasis. - Labs CBC & Chem 7: 12/08/16 05:30 12/08/16 05:30 Labs: Abnormal Lab Results - Last 24 Hours (Table) 12/07/16 12/07/16 12/08/16 Range/Units 16:26 21:00 05:30 WBC 12.5 H (3.8-10.6) k/uL RBC 2.75 L (4.30-5.90) m/uL Hgb 7.7 L (13.0-17.5) gm/dL Hct 27.5 L (39.0-53.0) % MCHC 28.1 L (31.0-37.0) g/dL RDW 17.1 H (11.5-15.5) % Neutrophils # 11.2 H (1.3-7.7) k/uL Lymphocytes # 0.6 L (1.0-4.8) k/uL PT (9.0-12.0) sec Sodium (137-145) mmol/L Chloride (98-107) mmol/L BUN (9-20) mg/dL Creatinine (0.66-1.25) mg/dL POC Glucose (mg/dL) 193 H 113 H (75-99) mg/dL Calcium (8.4-10.2) mg/dL Urine Blood (Negative) Ur Leukocyte Esterase (Negative) Urine RBC (0-5) /hpf Urine WBC (0-5) /hpf Urine WBC Clumps (None) /hpf Urine Mucus (None) /hpf 12/08/16 12/08/16 12/08/16 Range/Units 05:30 05:30 06:16 WBC (3.8-10.6) k/uL RBC (4.30-5.90) m/uL Hgb (13.0-17.5) gm/dL Hct (39.0-53.0) % MCHC (31.0-37.0) g/dL RDW (11.5-15.5) % Neutrophils # (1.3-7.7) k/uL Lymphocytes # (1.0-4.8) k/uL PT 46.5 H (9.0-12.0) sec Sodium 135 L (137-145) mmol/L Chloride 97 L (98-107) mmol/L BUN 46 H (9-20) mg/dL Creatinine 1.42 H (0.66-1.25) mg/dL POC Glucose (mg/dL) 103 H (75-99) mg/dL Calcium 7.7 L (8.4-10.2) mg/dL Urine Blood (Negative) Ur Leukocyte Esterase (Negative) Urine RBC (0-5) /hpf Urine WBC (0-5) /hpf Urine WBC Clumps (None) /hpf Urine Mucus (None) /hpf 12/08/16 12/08/16 Range/Units 09:45 11:34 WBC (3.8-10.6) k/uL RBC (4.30-5.90) m/uL Hgb (13.0-17.5) gm/dL Hct (39.0-53.0) % MCHC (31.0-37.0) g/dL RDW (11.5-15.5) % Neutrophils # (1.3-7.7) k/uL Lymphocytes # (1.0-4.8) k/uL PT (9.0-12.0) sec Sodium (137-145) mmol/L Chloride (98-107) mmol/L BUN (9-20) mg/dL Creatinine (0.66-1.25) mg/dL POC Glucose (mg/dL) 151 H (75-99) mg/dL Calcium (8.4-10.2) mg/dL Urine Blood Moderate H (Negative) Ur Leukocyte Esterase Small H (Negative) Urine RBC 16 H (0-5) /hpf Urine WBC 10 H (0-5) /hpf Urine WBC Clumps Rare H (None) /hpf Urine Mucus Rare H (None) /hpf Assessment and Plan Plan: Impression: #1 Acute exacerbation of diastolic congestive heart failure #2 Severe pulmonary hypertension with RVSP 84 mmHg. #3 Urinary tract infection. #4 Coronary disease with previous coronary artery bypass grafting. #5 Aortic stenosis status post aortic valve replacement/tissue valve. #6 Chronic atrial fibrillation, anticoagulated with warfarin, supra therapeutic. #7 chronic lower extremity edema was stage I superficial ulceration. #8 Hyperlipidemia. #9 Hypothyroidism. #10 Osteoarthritis. #11 Poor overall functional performance in the above-mentioned multiple comorbidities. Plan: The patient was seen and evaluated by Dr. Peter. We'll continue with oral diuretics. He remains on an coagulation which will be held based on his INR 4.7. With bronchodilators, Symbicort, Revatio. He remains on antibiotics in the form of Zosyn. Will increase his activity as tolerated. We'll continue to follow and make further recommendations based on his clinical status. The patient's case was reviewed and discussed with Dr. Peter. The interim history, assessment and plan were dictated as recommendations by him.
--- NOTE | 2016-12-08 14:36 | P.PN ---
Subjective Principal diagnosis: pneumonia This is a pleasant 76-year-old gentleman who does not follows with any hide trimmer in town but he does follow with a hide trimmer at the [facility] according to him with an extensive cardiac history consistent of aortic valve disease and status post aortic valve replacement using a bioprosthetic valve, status post mitral valve repair, chronic atrial fibrillation, and chronic respiratory failure, was brought from an extended care facility to the hospital for worsening shortness of breath and not feeling well.The patient just was discharged from the hospital for an extended care facility few weeks ago. He was receiving rehab over there.He started experiencing fever, cough producing sputum, and some change in mental status.Beside that the patient noticed progressive bilateral lower extremities edema started about 2 weeks ago and also progressive exertional dyspnea.According to him, he gained significant amount of weight.In the hospital the patient was febrile with a temperature of more 100. The chest x- ray showed findings consistent with left lower lobe infiltrate. The patient was started on antibiotic for possible pneumonia.On physical examination the patient has severe bilateral lower extremities edema seems to be pitting edema. He stated that he cannot lay flat in bed because of the shortness of breath.He just underwent an echocardiogram recently and that showed mildly impaired LV function with an ejection fraction of 45% with moderate tricuspid regurgitation and severe pulmonary hypertension and normally functioning bioprosthetic valve.The patient has an acute on chronic respiratory failure. He does have congestive heart failure with predominantly right heart failure more than left heart failure. No need to repeat the echocardiogram in view of the recent one which was performed a few weeks ago. We'll continue monitor kidney function and electrolytes and continue following up with the patient. He is in atrial fibrillation was controlled heart rate and he is on Coumadin for anticoagulation. INR today is 4.7, Coumadin is on hold. Hemoglobin 7.7, white blood cell count 12.5 BUN 46, creatinine 1.4, potassium 3.9. The Lasix was discontinued today, and patient was started on oral diuretics. Patient was noted to have a run of nonsustained ventricular tachycardia today, magnesium and potassium have been replaced. Objective - Vital Signs Vital signs: Vital Signs Temp 97.8 F 12/08/16 08:00 Pulse 68 12/08/16 12:00 Resp 16 12/08/16 12:00 BP 92/56 12/08/16 11:34 Pulse Ox 98 12/08/16 11:34 Intake & Output 12/07/16 12/08/16 12/08/16 18:59 06:59 18:59 Intake Total 744 476 Output Total 1650 0 Balance 744 -1650 476 Weight 110 kg 110 kg Intake: Intake, IV Titration 50 240 Amount Piperacillin-Tazobactam 3 50 .375 gm In Dextrose/Water 1 50ml.bag @ 12.5 mls/hr IVPB Q8HR [facility] Rx#: [id number] Sodium Chloride 0.9% 1, 240 000 ml @ 20 mls/hr IV . Q24H [facility] Rx#:[id number] Oral [id number] Output: Urine 1650 0 Other: Voiding Method Urinal Urinal Indwelling Catheter # Voids 0 0 # Bowel Movements 1 1 - Exam PHYSICAL EXAMINATION: HEENT: Head is atraumatic, normocephalic. Pupils equal, round. Neck is supple. There is no elevated jugular venous pressure. HEART EXAMINATION: Heart S1S2 irregularly irregular a systolic murmur is heard. CHEST EXAMINATION: Audible Rales heard to bilateral bases. ABDOMEN: Soft, nontender. Bowel sounds are heard. No organomegaly noted. EXTREMITIES: 2+ peripheral pulses with no evidence of peripheral edema and no calf tenderness noted. NEUROLOGIC patient is awake, alert and oriented -3. . - Labs CBC & Chem 7: 12/08/16 05:30 12/08/16 05:30 Labs: Abnormal Lab Results - Last 24 Hours (Table) 12/07/16 12/07/16 12/08/16 Range/Units 16:26 21:00 05:30 WBC 12.5 H (3.8-10.6) k/uL RBC 2.75 L (4.30-5.90) m/uL Hgb 7.7 L (13.0-17.5) gm/dL Hct 27.5 L (39.0-53.0) % MCHC 28.1 L (31.0-37.0) g/dL RDW 17.1 H (11.5-15.5) % Neutrophils # 11.2 H (1.3-7.7) k/uL Lymphocytes # 0.6 L (1.0-4.8) k/uL PT (9.0-12.0) sec Sodium (137-145) mmol/L Chloride (98-107) mmol/L BUN (9-20) mg/dL Creatinine (0.66-1.25) mg/dL POC Glucose (mg/dL) 193 H 113 H (75-99) mg/dL Calcium (8.4-10.2) mg/dL Urine Blood (Negative) Ur Leukocyte Esterase (Negative) Urine RBC (0-5) /hpf Urine WBC (0-5) /hpf Urine WBC Clumps (None) /hpf Urine Mucus (None) /hpf 12/08/16 12/08/16 12/08/16 Range/Units 05:30 05:30 06:16 WBC (3.8-10.6) k/uL RBC (4.30-5.90) m/uL Hgb (13.0-17.5) gm/dL Hct (39.0-53.0) % MCHC (31.0-37.0) g/dL RDW (11.5-15.5) % Neutrophils # (1.3-7.7) k/uL Lymphocytes # (1.0-4.8) k/uL PT 46.5 H (9.0-12.0) sec Sodium 135 L (137-145) mmol/L Chloride 97 L (98-107) mmol/L BUN 46 H (9-20) mg/dL Creatinine 1.42 H (0.66-1.25) mg/dL POC Glucose (mg/dL) 103 H (75-99) mg/dL Calcium 7.7 L (8.4-10.2) mg/dL Urine Blood (Negative) Ur Leukocyte Esterase (Negative) Urine RBC (0-5) /hpf Urine WBC (0-5) /hpf Urine WBC Clumps (None) /hpf Urine Mucus (None) /hpf 12/08/16 12/08/16 Range/Units 09:45 11:34 WBC (3.8-10.6) k/uL RBC (4.30-5.90) m/uL Hgb (13.0-17.5) gm/dL Hct (39.0-53.0) % MCHC (31.0-37.0) g/dL RDW (11.5-15.5) % Neutrophils # (1.3-7.7) k/uL Lymphocytes # (1.0-4.8) k/uL PT (9.0-12.0) sec Sodium (137-145) mmol/L Chloride (98-107) mmol/L BUN (9-20) mg/dL Creatinine (0.66-1.25) mg/dL POC Glucose (mg/dL) 151 H (75-99) mg/dL Calcium (8.4-10.2) mg/dL Urine Blood Moderate H (Negative) Ur Leukocyte Esterase Small H (Negative) Urine RBC 16 H (0-5) /hpf Urine WBC 10 H (0-5) /hpf Urine WBC Clumps Rare H (None) /hpf Urine Mucus Rare H (None) /hpf Assessment and Plan (1) Systolic CHF, acute on chronic Status: Acute (2) Pneumonia Status: Acute (3) Chronic a-fib Status: Acute (4) COPD (chronic obstructive pulmonary disease) Status: Acute (5) Chronic anemia Status: Acute (6) Pulmonary HTN Status: Acute (7) S/P AVR Status: Acute Plan: Cardiology's perspective, IV Lasix has been discontinued we'll put the patient on oral diuretics. Replace potassium and magnesium. DNP note has been reviewed, I agree with a documented findings and plan of care. Patient was seen and examined.
[2016-12-08 15:37] LABS: Appearance,Urine Clear (Clear); Bacteria,Urine Rare /hpf; Bilirubin,Urine Negative (Negative); Glucose,Urine (UA) Negative (Negative); Ketones,Urine Negative (Negative); Leukocyte Esterase,Urine Small (Negative); Mucus,Urine Rare /hpf; Nitrite,Urine Negative (Negative); PH, Urine 5.5 (5.0-8.0); Particle Count 2524; Protein,Urine Negative (Negative); RBC,Urine 14 /hpf (0-5); Specific Gravity,Urine 1.013 (1.001-1.035); UA Billing (MACRO vs. MICRO) MICRO; Urobilinogen,Urine <2.0 mg/dL (<2.0); WBC,Urine 7 /hpf (0-5)
[2016-12-08] MEDS ORDERED: FUROSEMIDE 40 MG TAB PO SCH (16:00)
--- NOTE | 2016-12-08 16:17 | P.PN ---
Progress Note - Text The patient's catheter was removed yesterday afternoon but he has been unable to void. Attempts were made to insert a catheter by the nurses last night but this proved unsuccessful. Bladder scan this morning showed over 800 cc in his bladder. The patient had mild suprapubic pain. I inserted a 14 [place]ese coud catheter using sterile technique and this drained over 800 cc of relatively clear urine. Impression: Persistent urinary retention Recommendation: The patient's catheter will remain prior to another voiding trial. He should remain on finasteride.
[2016-12-08 16:28] LABS: Glucose,Whole Blood 137 mg/dL (75-99)
[2016-12-08] MEDS: LEVOTHYROXINE 137 MCG TAB PO SCH (20:25)
[2016-12-08] MEDS: ATORVASTATIN 40 MG TAB PO SCH (20:25)
[2016-12-08] MEDS: PANTOPRAZOLE 40 MG TABLET PO SCH (20:26)
[2016-12-08] MEDS: MELATONIN 5 MG TABLET PO SCH (20:26)
[2016-12-08] MEDS: TAMSULOSIN 0.4 MG CAP.ER.24H PO SCH (20:26)
[2016-12-08] MEDS: FINASTERIDE 5 MG TAB PO SCH (20:27)
[2016-12-08 20:42] LABS: Glucose,Whole Blood 181 mg/dL (75-99)
[2016-12-08] MEDS: ALPRAZolam 0.5 MG TAB PO PRN (22:31)
--- NOTE | 2016-12-08 23:00 | PN ---
DATE OF SERVICE: 12/08/2016 REASON FOR FOLLOWUP: 1. Catheter-associated urinary tract infection. 2. Possible pneumonia. INTERVAL HISTORY: The patient is afebrile, has been breathing comfortably. Denies significant chest pain or cough. No abdominal pain. No nausea, vomiting. The patient's Nguyen catheter was discontinued yesterday. However, the patient was unable to void; hence, it had to be re-inserted by Urology this morning. On examination, blood pressure is 124/49 with a pulse of 60, temperature 97.5. He is 94% on 2L nasal cannula. General description is an elderly male, up in the bed in no distress. RESPIRATORY SYSTEM: Unlabored breathing. Some decreased breath sounds at the base. HEART: S1, S2. Regular rate and rhythm. ABDOMEN: Soft, nontender. LABS: Hemoglobin is 7.7, white count 12.5. BUN of 46 with creatinine of 1.42. DIAGNOSTIC IMPRESSION AND PLAN: Patient admitted to hospital with fever and sepsis. Source is likely catheter-associated urinary tract infection with urine showing Pseudomonas and Escherichia coli. Nguyen has been discontinued and the Nguyen had to be re-inserted because of retention. He is currently on Zosyn. Will have him repeat a chest x-ray tomorrow. Depending on the x-ray finding, hopefully will finish therapy with oral antibiotic therapy. present at the bedside. Her questions and concerns were answered. JUNE
[2016-12-09] MEDS: ACETAMINOPHEN TAB 325 MG TAB PO PRN ×2 (03:50→11:09)
[2016-12-09] MEDS: SILDENAFIL 20 MG TAB PO SCH ×3 (05:17→21:43)
[2016-12-09 06:46] LABS: Glucose,Whole Blood 75 mg/dL (75-99)
[2016-12-09] MEDS: INSULIN LISPRO (humaLOG) 300 UNIT/3 ML VIAL SQ SCH ×4 (07:44→21:45)
[2016-12-09] MEDS: SYMBICORT 160-4.5 MCG INHALER INHALATION SCH ×3 (07:58→20:12)
[2016-12-09] MEDS: ALLOPURINOL 100 MG TAB PO SCH ×2 (08:36→21:44)
[2016-12-09] MEDS: PIPERACILLIN-TAZOBACTAM 3.375 GM in DEXTROSE/WATER 1 50ML.BAG IVPB SCH ×3 (08:36→23:09)
[2016-12-09] MEDS: METOPROLOL TARTRATE 12.5 MG TAB PO SCH ×2 (08:36→21:50)
[2016-12-09] MEDS ORDERED: FUROSEMIDE 40 MG TAB PO SCH (09:00)
[2016-12-09 09:37] LABS: INR 3.8 (<1.1); Prothrombin Time 36.9 sec (9.0-12.0)
[2016-12-09 09:40] LABS: Anisocytosis Slight; Basophils % (A) 0 %; CH 28.8; CHCM 28.9; Eosinophils % (A) 0 %; HCT 29.7 % (39.0-53.0); HDW 4.21; HGB 8.4 gm/dL (13.0-17.5); Hypochromasia Marked; Luc # (Auto) 0.35; Luc % (Auto) 3; Lymphocytes # (A) 1.1 k/uL (1.0-4.8); Lymphocytes % (A) 9 %; MCH 28.4 pg (25.0-35.0); MCHC 28.4 g/dL (31.0-37.0); MCV 99.8 fL (80.0-100.0); Macrocytosis Slight; Mean Platelet Volume 8.2; Monocytes # (A) 0.9 k/uL (0-1.0); Monocytes % (A) 7 %; Neutrophils # (A) 10.1 k/uL (1.3-7.7); Neutrophils % (A) 81 %; Poikilocytosis Moderate; RBC 2.97 m/uL (4.30-5.90); RDW 17.3 % (11.5-15.5); WBC 12.5 k/uL (3.8-10.6); WBC (Perox) 13.07
[2016-12-09 09:43] LABS: Calcium 7.8 mg/dL (8.4-10.2); Magnesium 2.3 mg/dL (1.6-2.3); Potassium 4.3 mmol/L (3.5-5.1)
[2016-12-09 11:56] LABS: Glucose,Whole Blood 127 mg/dL (75-99)
[2016-12-09] MEDS: SODIUM CHLORIDE 0.9% 1,000 ML IV SCH ×4 (12:22→23:11)
--- NOTE | 2016-12-09 12:37 | CDI ---
In responding to this query, please exercise your independent professional judgment. The [facility] Coding Staff and Clinical Documentation Specialists appreciate your assistance in clarifying documentation, maintaining compliance with coding guidelines, accurately documenting patients condition and capturing severity of illness. The fact that a question is asked does not imply that any particular answer is desired or expected. Communication forms are a method of clarifying documentation and are not made part of the Legal Health Record. Thank you in advance for your clarification. Last Revision, June 2015 Ken Lizarraga [address] [facility] [place] [address] Documentation Clarification Form Date: 12/09/2016 12:29:00 PM From: Yasmine Monzon CCS, CCDS Admit Date: 12/04/2016 7:47:00 PM Patient Name: Andreas Dukes Visit Number: [id number] Discharge Date: Dr. Yeni Nazario: 76 yo male, admit from ECF (in rehab status post hip fracture & ORIF). Presented with fever and difficulty breathing, diagnosed with Pneumonia, UTI & COPD exacerbation. Per Infectious Disease documentation, the source of the patient's Sepsis is the Nguyen Catheter, changed & reinserted. History/Risk Factors: From ECF, extensive cardiac history, recent hospitalization, lower extremity cellulitis & indwelling Nguyen catheter. Clinical Indicators: VS: T 101.4, P 107, R 22 (sob), BP 109/55, PO 84 4Lnc LAB: WBC 27.8, Hgb 7.7, Neut 25.9, Lactic acid: (1.8), (1.5) UA: Light brown, turbid, Lg esterase, RBC & WBC >182. Cx: E Coli, Pseudomonas aeruginosa (final), repeat 12/08 pending. Cultures: Blood & Sputum neg after 96 hours) Treatment: IV fluid rate 100, IV Levaquin, IV Lasix, IV Ativan, IV MagSulfate, O2 4Lnc Please clarify and document your clinical opinion in the progress notes and discharge summary if any relationship (due to, caused by, secondary to) exists between these two diagnoses. Please include clinical findings supporting your diagnosis. Sepsis due to o Indwelling Nguyen Cath o Pneumonia o UTI o All of the above o Other explanation of clinical findings o Unable to determine Please document in your progress notes and discharge summary in order to capture severity of illness and risk of mortality. Include clinical findings that support your diagnosis. FYI: Press F11 to launch patient chart. Place X here if this finding has no clinical significance, is not applicable or if you are not able to provide any additional documentation. MARKD
--- NOTE | 2016-12-09 14:28 | P.PN ---
Subjective Patient is doing well today. Creatinine continued to increase. No significant shortness of breath today. Objective - Vital Signs Vital signs: Vital Signs Temp 95.5 F L 12/09/16 07:00 Pulse 60 12/09/16 12:56 Resp 16 12/09/16 07:00 BP 117/60 12/09/16 12:56 Pulse Ox 96 12/09/16 07:00 Intake & Output 12/08/16 12/09/16 12/09/16 18:59 06:59 18:59 Intake Total 698 500 Output Total 500 700 Balance 198 -200 Weight 110 kg 113 kg Intake: Intake, IV Titration 240 Amount Sodium Chloride 0.9% 1, 240 000 ml @ 20 mls/hr IV . Q24H [facility] Rx#:[id number] Oral 458 500 Output: Urine 500 700 Other: Voiding Method Indwelling Catheter Indwelling Catheter Indwelling Catheter # Voids 0 # Bowel Movements 1 - Exam General: The patient is awake and alert, in no distress Eye: there is normal conjunctiva bilaterally. Neck: The neck is supple, there is no JVD. Cardiovascular: Normal S1-S2, no S3-S4, no murmurs. Respiratory: Lungs clear to auscultation bilaterally Gastrointestinal: Abdomen is soft, nontender Musculoskeletal: There is no pedal edema. Neurological:. Speech is normal. Skin: Skin is warm and dry - Labs CBC & Chem 7: 12/09/16 09:06 12/09/16 09:06 Labs: Abnormal Lab Results - Last 24 Hours (Table) 12/08/16 12/08/16 12/08/16 Range/Units 15:00 16:25 20:40 WBC (3.8-10.6) k/uL RBC (4.30-5.90) m/uL Hgb (13.0-17.5) gm/dL Hct (39.0-53.0) % MCHC (31.0-37.0) g/dL RDW (11.5-15.5) % Neutrophils # (1.3-7.7) k/uL PT (9.0-12.0) sec Sodium (137-145) mmol/L Chloride (98-107) mmol/L BUN (9-20) mg/dL Creatinine (0.66-1.25) mg/dL POC Glucose (mg/dL) 137 H 181 H (75-99) mg/dL Calcium (8.4-10.2) mg/dL Urine Blood Moderate H (Negative) Ur Leukocyte Esterase Small H (Negative) Urine RBC 14 H (0-5) /hpf Urine WBC 7 H (0-5) /hpf Urine Bacteria Rare H (None) /hpf Hyaline Casts 7 H (0-2) /lpf Urine Mucus Rare H (None) /hpf 12/09/16 12/09/16 12/09/16 Range/Units 09:06 09:06 09:06 WBC 12.5 H (3.8-10.6) k/uL RBC 2.97 L (4.30-5.90) m/uL Hgb 8.4 L (13.0-17.5) gm/dL Hct 29.7 L (39.0-53.0) % MCHC 28.4 L (31.0-37.0) g/dL RDW 17.3 H (11.5-15.5) % Neutrophils # 10.1 H (1.3-7.7) k/uL PT 36.9 H (9.0-12.0) sec Sodium 135 L (137-145) mmol/L Chloride 97 L (98-107) mmol/L BUN 54 H (9-20) mg/dL Creatinine 1.64 H (0.66-1.25) mg/dL POC Glucose (mg/dL) (75-99) mg/dL Calcium 7.8 L (8.4-10.2) mg/dL Urine Blood (Negative) Ur Leukocyte Esterase (Negative) Urine RBC (0-5) /hpf Urine WBC (0-5) /hpf Urine Bacteria (None) /hpf Hyaline Casts (0-2) /lpf Urine Mucus (None) /hpf 12/09/16 Range/Units 11:54 WBC (3.8-10.6) k/uL RBC (4.30-5.90) m/uL Hgb (13.0-17.5) gm/dL Hct (39.0-53.0) % MCHC (31.0-37.0) g/dL RDW (11.5-15.5) % Neutrophils # (1.3-7.7) k/uL PT (9.0-12.0) sec Sodium (137-145) mmol/L Chloride (98-107) mmol/L BUN (9-20) mg/dL Creatinine (0.66-1.25) mg/dL POC Glucose (mg/dL) 127 H (75-99) mg/dL Calcium (8.4-10.2) mg/dL Urine Blood (Negative) Ur Leukocyte Esterase (Negative) Urine RBC (0-5) /hpf Urine WBC (0-5) /hpf Urine Bacteria (None) /hpf Hyaline Casts (0-2) /lpf Urine Mucus (None) /hpf Microbiology - Last 24 Hours (Table) 12/08/16 15:00 Urine Culture - Preliminary Urine,Catheterized Assessment and Plan Plan: 1. Left lower lobe pneumonia: Healthcare acquired. Currently on broad- spectrum antibiotic. Infectious disease following. 2. Chronic blood loss anemia and iron deficiency anemia: given 1 dose of IV iron. Start oral supplement. Transfuse as needed for hemoglobin below 7 3. Acute on chronic hypoxic respiratory failure now back to baseline oxygen 2 L 3. Systolic and diastolic heart failure exacerbation currently on IV Lasix will be switched to oral today 4. Severe pulmonary hypertension with cor pulmonale on Lasix and sildenafil as an outpatient 5. Chronic venous insufficiency with chronic venous insufficiency exam at this changes and dry skin 6. Paroxysmal atrial fibrillation on anticoagulation with Coumadin 7. Underlying COPD with no evidence of exacerbation 8. History of aortic valve replacement with bioprosthetic valve years ago 9. Chronic obstructive uropathy with chronic indwelling Nguyen catheter 10. Catheter associated urinary tract infection 11. Sepsis on presentation without septic shock Today, I reviewed his medication list and lab work results. Discontinue Lasix for now given acute kidney injury Continue to hold Coumadin given elevated INR Discuss with infectious disease antibiotic course for discharge Repeat chest x-ray today. Repeat kidney function in the morning to assure that his creatinine does not continue to trend up. Anticipate discharge back to care home tomorrow
--- NOTE | 2016-12-09 15:14 | XR ---
EXAMINATION TYPE: XR chest 2V DATE OF EXAM: 12/09/2016 2:55 PM COMPARISON: Prior chest x-ray 05 Dec 2016 HISTORY: Cough TECHNIQUE: Frontal and lateral views of the chest are obtained. FINDINGS: Patient is post median sternotomy and the heart remains enlarged. Central vascularity and interstitium are increased. There is no evident pneumothorax. There may be basilar atelectasis and ef fusion versus edema, correlate to exclude pneumonia. Coronary artery calcifications are present. IMPRESSION: Similar findings to prior exam. Correlate for congestive heart failure. May be some inte rval improvement in volume status compared to prior exam.
--- NOTE | 2016-12-09 16:06 | PN ---
This is a 76-year-old gentleman with a history of acute diastolic CHF, severe pulmonary hypertension, urinary tract infection, coronary artery disease with previous bypass grafting, aortic stent, aortic stenosis status post aortic valve replacement, chronic atrial fibrillation, chronic lower extremity edema, hyperlipidemia, hypothyroidism, DJD, and poor overall functional status. The patient is saying that he might be discharged today. Not sure about that. He does have an appointment to see me in the office on December 21. The patient is feeling much better. Much less short of breath. He feels like he is doing better. Sitting up in the bed. His is at bedside. Looking over at the 1001 [address]. Anyway, the patient is feeling much improved. CURRENT VITAL SIGNS: Temperature 95.5, heart rate 63, respiratory 16, blood pressure 106/55, mean 72. Saturations are 96% on 1 liter. Appears in no acute distress. Looks well. HEENT examination is grossly unremarkable. Mucous membranes are moist. No oral lesions. Neck is supple. Full range of motion. No adenopathy or thyromegaly. Cardiovascular examination reveals regular rhythm and rate. S1, S2 normal. No S3, S4 or murmur. Heart sounds are distant. Lungs reveal relatively clear breath sounds. A few scattered crackles. Abdomen is soft. Bowel sounds are heard. Extremities are intact. Minimal edema. Labs are reviewed. White count 12.5, hemoglobin 8.4, hematocrit 29.7, platelet count 222,000. PT, INR was 36.9 and 3.8 respectively. Sodium 135, potassium 4.3, chloride 97, CO2 of 27. BUN and creatinine were 54 and 1.64. The rest of the labs look okay. No recent x-rays to report. ASSESSMENT: 1. Acute exacerbation of chronic diastolic congestive heart failure. 2. Severe pulmonary hypertension with a right ventricular systolic pressure of 84. 3. Urinary tract infection. 4. Coronary artery disease with previous CABG. 5. Status post aortic valve replacement for aortic stenosis. 6. Chronic atrial fibrillation. 7. Chronic lower extremity edema. 8. Hyperlipidemia. 9. Hypothyroidism. 10. Osteoarthritis. 11. Poor overall functional performance. PLAN: The patient may be discharged today. He does have an appointment to see me on December 21. We will do a pulmonary function test on him on that day. Additional recommendations and suggestions are forthcoming. Prognosis is guarded. I am not really sure about discharge. They were checking to see whether or not he should be discharged home on home oxygen.
[2016-12-09 17:01] LABS: Glucose,Whole Blood 124 mg/dL (75-99)
[2016-12-09 21:40] LABS: Glucose,Whole Blood 108 mg/dL (75-99)
[2016-12-09] MEDS: PANTOPRAZOLE 40 MG TABLET PO SCH (21:43)
[2016-12-09] MEDS: MELATONIN 5 MG TABLET PO SCH (21:43)
[2016-12-09] MEDS: LEVOTHYROXINE 137 MCG TAB PO SCH (21:43)
[2016-12-09] MEDS: ATORVASTATIN 40 MG TAB PO SCH (21:43)
[2016-12-09] MEDS: FINASTERIDE 5 MG TAB PO SCH (21:44)
[2016-12-09] MEDS: TAMSULOSIN 0.4 MG CAP.ER.24H PO SCH (21:44)
--- NOTE | 2016-12-09 22:23 | PN ---
DATE OF SERVICE: 12/09/2016 REASON FOR FOLLOWUP: Catheter-associated urinary tract infection and question of pneumonia. INTERVAL HISTORY: The patient is afebrile, has been breathing comfortably. Apparently the patient did not sleep well last night and was resting, sleepy when I evaluated him, per the family member present at the bedside. No significant nausea or vomiting has been noted or any diarrhea or agitation. On examination, blood pressure is 117/60 with a pulse of 63, temperature 96.3. He is 95% on 1 L nasal cannula. General description is an elderly male lying in bed in no distress. RESPIRATORY SYSTEM: Unlabored breathing. Clear to auscultation anteriorly. HEART: S1, S2. Regular rate and rhythm. ABDOMEN: Soft. No tenderness. LABS: Hemoglobin 8.4, white count 12.5 with a BUN of 54, creatinine 1.64. Repeat culture pending. DIAGNOSTIC IMPRESSION AND PLAN: Patient admitted to hospital with sepsis; source more likely catheter-associated urinary tract infection with urine showing pseudomonas and Escherichia coli and question of pneumonia; however, repeat x-ray now showing more features of CHF. Currently on Zosyn. Hopefully will be able to finish therapy with oral Cipro. That will be switched at the time of discharge. Family present at bedside. Their questions were answered. JUNE
[2016-12-10 00:21] VITALS: RESP 18
[2016-12-10] MEDS: SILDENAFIL 20 MG TAB PO SCH ×2 (05:08→14:07)
[2016-12-10] MEDS: SODIUM CHLORIDE 0.9% 1,000 ML IV SCH ×2 (06:46→06:47)
[2016-12-10 07:43] LABS: Glucose,Whole Blood 96 mg/dL (75-99)
[2016-12-10] MEDS: INSULIN LISPRO (humaLOG) 300 UNIT/3 ML VIAL SQ SCH ×2 (07:44→13:26)
[2016-12-10] MEDS: PIPERACILLIN-TAZOBACTAM 3.375 GM in DEXTROSE/WATER 1 50ML.BAG IVPB SCH (07:49)
[2016-12-10] MEDS: ALLOPURINOL 100 MG TAB PO SCH (07:49)
[2016-12-10] MEDS: METOPROLOL TARTRATE 12.5 MG TAB PO SCH (07:49)
[2016-12-10 07:54] VITALS: BP 111/58; PULSE 57; TEMP 97.8
[2016-12-10] MEDS: SYMBICORT 160-4.5 MCG INHALER INHALATION SCH (08:01)
[2016-12-10 09:59] LABS: INR 3.1 (<1.1); Prothrombin Time 30.1 sec (9.0-12.0)
[2016-12-10 10:23] LABS: Anisocytosis Slight; Basophils % (A) 0 %; CH 29.6; CHCM 31.1; Eosinophils # (A) 0.1 k/uL (0-0.7); Eosinophils % (A) 1 %; HCT 26.6 % (39.0-53.0); HDW 4.68; HGB 8.2 gm/dL (13.0-17.5); Hypochromasia Marked; Luc # (Auto) 0.24; Luc % (Auto) 2; Lymphocytes # (A) 1.1 k/uL (1.0-4.8); Lymphocytes % (A) 10 %; MCH 29.5 pg (25.0-35.0); MCV 95.4 fL (80.0-100.0); Macrocytosis Slight; Mean Platelet Volume 8.5; Monocytes # (A) 0.6 k/uL (0-1.0); Monocytes % (A) 6 %; Neutrophils # (A) 8.7 k/uL (1.3-7.7); Neutrophils % (A) 81 %; Poikilocytosis Marked; RBC 2.79 m/uL (4.30-5.90); RDW 18.2 % (11.5-15.5); WBC 10.8 k/uL (3.8-10.6); WBC (Perox) 10.27
[2016-12-10 10:34] LABS: Calcium 7.8 mg/dL (8.4-10.2); Magnesium 2.3 mg/dL (1.6-2.3)
--- NOTE | 2016-12-10 12:00 | P.DS ---
Providers Date of admission: 12/04/16 19:47 Expected date of discharge: 12/10/16 Attending physician: Gilbert Wolfe Consults: 12/05/16 09:13 Consult Physician Routine Consulting Provider: Lizet Reyes Consult Reason/Comments: pneumonia Do you want consulting provider notified?: Yes 12/05/16 09:51 Consult Physician Routine Consulting Provider: Enrrique Mejia Consult Reason/Comments: CHF Do you want consulting provider notified?: Yes 12/05/16 09:54 Consult Physician Routine Consulting Provider: Israel Wells Consult Reason/Comments: UTI, pneumonia, gina LE cellulitis Do you want consulting provider notified?: Yes 12/06/16 12:50 Consult Physician Routine Consulting Provider: [place] Mon Consult Reason/Comments: Urinary retention Do you want consulting provider notified?: Yes Primary care physician: [facility] Course: 1. Left lower lobe pneumonia: Healthcare acquired. Improved clinically. 2. Chronic blood loss anemia and iron deficiency anemia: given 1 dose of IV iron. Start oral supplement. Transfuse as needed for hemoglobin below 7 3. Acute on chronic hypoxic respiratory failure now back to baseline oxygen 2 L 3. Systolic and diastolic heart failure exacerbation currently on Lasix 4. Severe pulmonary hypertension with cor pulmonale on Lasix and sildenafil as an outpatient 5. Chronic venous insufficiency with chronic venous insufficiency exam at this changes and dry skin 6. Paroxysmal atrial fibrillation on anticoagulation with Coumadin 7. Underlying COPD with no evidence of exacerbation 8. History of aortic valve replacement with bioprosthetic valve years ago 9. Chronic obstructive uropathy with chronic indwelling Nguyen catheter 10. Catheter associated urinary tract infection 11. Sepsis on presentation without septic shock - Change anticoagulation to Rivaroxaban - Continue Lasix once a day in the morning 40 mg - Repeat BMP on Tuesday Patient Condition at Discharge: Stable Plan - Discharge Summary New Discharge Prescriptions: ALPRAZolam [Xanax] 0.5 mg PO DAILY PRN #30 tab PRN Reason: Anxiety Potassium Chloride ER [K-Dur 10] 10 meq PO DAILY #30 tab Rivaroxaban [Xarelto] 15 mg PO DAILY #30 tab Discharge Medication List Acetaminophen Tab [Tylenol] 650 mg PO Q4H PRN 11/08/16 [History] Allopurinol [Zyloprim] 100 mg PO BID 11/08/16 [History] Amino Acids/Protein Hydrolys [Pro-Stat Supplement] 30 ml PO DAILY 11/08/16 [ History] Fluticasone/Vilanterol [Breo Ellipta 100-25 Mcg Inhaler] 2 puff INHALATION RT- DAILY 11/08/16 [History] Ipratropium-Albuterol Nebulize [Duoneb 0.5 mg-3 mg/3 ml Soln] 3 ml INHALATION RT -Q8H PRN 11/08/16 [History] Levothyroxine Sodium [Synthroid] 137 mcg PO HS@199911/08/16 [History] Melatonin 5 mg PO HS@199911/08/16 [History] Omeprazole 20 mg PO HS@199911/08/16 [History] Tamsulosin [Flomax] 0.4 mg PO HS@199911/08/16 [History] Tiotropium 18 Mcg/Puff [Spiriva] 1 cap INHALATION RT-DAILY 11/08/16 [History] Lactulose [Cephulac] 20 gm PO DAILY PRN 11/20/16 [History] Sildenafil [Revatio] 20 mg PO Q8H 11/21/16 [History] Atorvastatin [Lipitor] 40 mg PO HS@199912/04/16 [History] Finasteride [Proscar] 5 mg PO HS 12/04/16 [History] ALPRAZolam [Xanax] 0.5 mg PO DAILY PRN #30 tab 12/10/16 [Rx] Furosemide [Lasix] 40 mg PO DAILY #0 12/10/16 [Rx] Potassium Chloride ER [K-Dur 10] 10 meq PO DAILY #30 tab 12/10/16 [Rx] Rivaroxaban [Xarelto] 15 mg PO DAILY #30 tab 12/10/16 [Rx] Sennosides-Docusate Sodium [Senokot-S] 1 each PO BID PRN #0 tab 12/10/16 [Rx] Follow up Appointment(s)/Referral(s): Yeni Nazario MD [Primary Care Provider] - 1-2 days Discharge Disposition: TRANSFER TO SNF/F
[2016-12-10 12:31] LABS: Glucose,Whole Blood 155 mg/dL (75-99)
--- NOTE | 2016-12-10 16:15 | PN ---
DATE OF SERVICE: 12/10/2016 REASON FOR FOLLOWUP: Pseudomonas and E coli catheter-associated urinary tract infection. INTERVAL HISTORY: The patient is afebrile. He is currently breathing comfortably. Patient denies significant chest pain or cough. No abdominal pain or any diarrhea. On examination, blood pressure is 111/58 with a pulse rate of 87, temperature 97.8. He is 94% on room air. General description is an elderly male lying in bed in no distress. RESPIRATORY SYSTEM: Unlabored breathing. Clear to auscultation anteriorly. HEART: S1, S2. Regular rate and rhythm. ABDOMEN: Soft. No tenderness. LABS: White count normalized to 10.8. Repeat urine culture so far negative. DIAGNOSTIC IMPRESSION AND PLAN: Patient with an Escherichia coli and pseudomonas catheter-associated urinary tract infection, both organisms sensitive to ciprofloxacin; hence recommending Cipro for another 7 days to finish the course of therapy. Continue supportive care.
== END 2016-12-10 14:06 | DRG 698 ==
LOC: EC 16:51 → 6SEL 19:47 → 4MS4W 12-08 22:55
PROVIDERS: ADMIT Internal Medicine; ATTEND Internal Medicine
DX: T83.511A Infection and inflammatory reaction due to indwelling urethral catheter, initial encounter (principal); A41.9 Sepsis, unspecified organism; J96.21 Acute and chronic respiratory failure with hypoxia; I50.43 Acute on chronic combined systolic (congestive) and diastolic (congestive) heart failure; J18.9 Pneumonia, unspecified organism; I47.2 Ventricular tachycardia; L03.115 Cellulitis of right lower limb; J44.0 Chronic obstructive pulmonary disease with (acute) lower respiratory infection; J44.1 Chronic obstructive pulmonary disease with (acute) exacerbation; L03.116 Cellulitis of left lower limb; L97.921 Non-pressure chronic ulcer of unspecified part of left lower leg limited to breakdown of skin; L97.911 Non-pressure chronic ulcer of unspecified part of right lower leg limited to breakdown of skin; I27.2 Other secondary pulmonary hypertension; I48.0 Paroxysmal atrial fibrillation; N39.0 Urinary tract infection, site not specified; E83.42 Hypomagnesemia; I48.2 Chronic atrial fibrillation; D50.0 Iron deficiency anemia secondary to blood loss (chronic); I27.81 Cor pulmonale (chronic); I07.1 Rheumatic tricuspid insufficiency; B96.20 Unspecified Escherichia coli [E. coli] as the cause of diseases classified elsewhere; E03.9 Hypothyroidism, unspecified; E78.5 Hyperlipidemia, unspecified; E87.6 Hypokalemia; F41.9 Anxiety disorder, unspecified; I25.10 Atherosclerotic heart disease of native coronary artery without angina pectoris; I35.0 Nonrheumatic aortic (valve) stenosis; I87.2 Venous insufficiency (chronic) (peripheral); K21.9 Gastro-esophageal reflux disease without esophagitis; M10.9 Gout, unspecified; M19.90 Unspecified osteoarthritis, unspecified site; N13.9 Obstructive and reflux uropathy, unspecified; B96.5 Pseudomonas (aeruginosa) (mallei) (pseudomallei) as the cause of diseases classified elsewhere; R31.0 Gross hematuria; E66.9 Obesity, unspecified; Z68.34 Body mass index [BMI] 34.0-34.9, adult; Z79.01 Long term (current) use of anticoagulants; Z79.899 Other long term (current) drug therapy; Z95.1 Presence of aortocoronary bypass graft; Z96.653 Presence of artificial knee joint, bilateral; Z87.891 Personal history of nicotine dependence; Z99.81 Dependence on supplemental oxygen; Z95.3 Presence of xenogenic heart valve; Y95 Nosocomial condition; Y84.6 Urinary catheterization as the cause of abnormal reaction of the patient, or of later complication, without mention of misadventure at the time of the procedure
CPT/HCPCS: 36415; 70450; 71010; 71020; 80048; 80053; 80306; 81001; 82140; 82550; 82553; 83540; 83550; 83605; 83735; 83880; 84484; 85025; 85610; 85730; 87040; 87070; 87077; 87086; 87186; 87205; 93005; 94640; 94660; 94760; 96365; 96367; 96375; 99291